=== PATIENT | female | born 1950 | race Caucasian/White ===

== ENCOUNTER 2016-12-04 13:17 | Outpatient (CLI) | payer MEDICARE | END 2016-12-04 13:18 | disposition home or self-care (01) | LOC: EEG 13:17 | PROVIDERS: ATTEND Student in an Organized Health Care Education/Training Program | DX: R42 Dizziness and giddiness (principal); R29.818 Other symptoms and signs involving the nervous system | CPT/HCPCS: 95816 ==

== ENCOUNTER 2017-01-03 16:38 | Inpatient (IN) | payer MEDICARE ==
[2017-01-03 18:50] LABS: Prothrombin Time 12.9 SEC (12.0-14.7)
--- NOTE | 2017-01-03 19:14 | CT ---
CT HEAD NONCONTRAST 01/03/17 INDICATION: Weakness. FINDINGS: There is a round hypodensity of the right centrum semiovale, anteriorly. No intracranial hemorrhage, mass effect or midline shift. There is subcortical white matter hypoattenuation of the right occipi bernardo lobe. Physiologic basal ganglia calcifications seen bilaterally. Prominent dural based calcifica tion is present intracranially. IMPRESSION: Age indeterminate round hypodensity anterior right centrum semiovale. Finding is superimposed upon a dditional smaller hypodensities of each centrum semiovale which are in the watershed distribution; t herefore, the possibility of recent infarctions related to hypoperfusion or embolic phenomenon not e xcluded. This could be further assessed with a noncontrast brain MRI. POS: L[facility]
[2017-01-03 19:15] LABS: #Basophils 0.1 thou/uL (0.0-0.2); #Eosinphils 0.2 thou/uL (0.0-0.7); #Lymphocytes 2.6 thou/uL (1.20-3.40); #Monocytes 0.6 thou/uL (0.11-0.59); #Neutrophils 5.2 thou/uL (1.40-6.50); %Basophils 1.1 % (0.0-1.0); %Eosinophils 2.1 % (0.0-10.0); %Lymphocytes 30.3 % (21.0-51.0); %Monocytes 6.7 % (0.0-10.0); Hematocrit 34.7 % (36.0-47.0); Mean Platelet Volume 7.7 fL (7.4-10.4); Red Blood Cell (RBC) Count 3.78 mill/uL (4.20-5.40); White Blood Cell (WBC) Count 8.6 thou/uL (4.8-10.8)
--- NOTE | 2017-01-03 19:16 | RAD ---
FRONTAL VIEW CHEST 01/03/17 INDICATION: Dyspnea. COMPARISON: 09/10/16. FINDINGS: No consolidation, effusion, pneumothorax. The cardiac silhouette is within normal limits of size. Th ere is absence of the lateral aspect of the right clavicle, chronic appearing. IMPRESSION: No focal consolidation. POS: [facility]
[2017-01-03 19:34] LABS: ALT (SGPT) 19 U/L (8-55); AST (SGOT) 18 U/L (5-34); Alkaline Phosphatase 111 U/L (40-150); Anion Gap 14 mmol/L (10-20); BUN (Urea Nitrogen) 21 mg/dL (9.8-20.1); Bilirubin, Total 0.6 mg/dL (0.2-1.2); Calc. Creatinine Clearance 0 mL/min (70-130); Calcium 10.4 mg/dL (7.8-10.44); Carbon Dioxide 28 mmol/L (23-31); Chloride 98 mmol/L (98-107); Estimated GFR-MDRD 49; Globulin 3.6 g/dL (2.4-3.5); Magnesium 1.7 mg/dL (1.6-2.6); Protein, Total 7.6 g/dL (6.0-8.3)
[2017-01-03 19:35] LABS: Troponin I 0.017 ng/mL (< 0.028)
[2017-01-03 20:27] LABS: Bilirubin Negative (Negative); Blood, Urine Small (Negative); Glucose, Urine (Dipstick) >=1000 mg/dL (Negative); Ketone, Urine 15 mg/dL (Negative); Nitrite Negative (Negative); Protein, Urine (Dipstick) 300 mg/dL (Neg-Trace); Urobilinogen 0.2 mg/dL (0.2-1.0)
[2017-01-03 20:33] LABS: Bacteria/HPF None Seen HPF (None Seen); Hyaline Casts/LPF 0-3 HYALINE CAST LPF (0-3 Hyaline); Squamous Epithelial 0-3 HPF (0-3); WBC/HPF 0-3 HPF (0-3)
[2017-01-03 22:44] VITALS: BMI 32.8
[2017-01-03] MEDS ORDERED: Acetaminophen 325 MG TAB PO PRN (23:33)
[2017-01-04] MEDS ORDERED: traMADol HCl 50 MG TAB PO PRN (01:27)
[2017-01-04] MEDS ORDERED: Insulin Regular 300 UNITS/3 ML VIAL SC PRN (06:26)
[2017-01-04] MEDS ORDERED: Dextrose 50% Abboject 50 ML SYRINGE IVP PRN (06:26)
[2017-01-04] MEDS ORDERED: Dextrose 5% in Water 1,000 ML IV PRN ×2 (06:26→08:57)
[2017-01-04] MEDS ORDERED: Sodium Chloride 0.9% 1,000 ML IV SCH (06:30)
[2017-01-04] MEDS ORDERED: Acetaminophen 325 MG TAB PO PRN (08:57)
[2017-01-04] MEDS ORDERED: Bisacodyl 5 MG TAB PO PRN (08:57)
[2017-01-04] MEDS ORDERED: Mag-Al 1200 mg/1200 mg/30 ML UDCUP PO PRN (08:57)
[2017-01-04] MEDS ORDERED: HYDROcodone/Acetaminophen 5/325 mg Tablet PO PRN (08:57)
[2017-01-04] MEDS ORDERED: Calcium Carbonate 500 MG ChewTAB PO PRN (08:57)
[2017-01-04] MEDS ORDERED: Dextrose 50% Abboject 50 ML SYRINGE SLOW IVP PRN (08:57)
[2017-01-04] MEDS ORDERED: Senokot 8.6 MG TAB PO PRN (08:57)
[2017-01-04] MEDS: Sodium Chloride 0.9% 1,000 ML IV SCH ×2 (09:51→22:48)
[2017-01-04] MEDS: Aspirin 325 mg Enteric Coated Tablet PO SCH (09:53)
[2017-01-04] MEDS: Famotidine 20 MG TAB PO SCH ×2 (09:53→21:09)
[2017-01-04] MEDS: Enoxaparin Sodium 40 MG/0.4 ML SYRINGE SC SCH (09:53)
[2017-01-04] MEDS: Insulin Detemir 100 UNITS/ML 25 UNITS in Pre-Filled Syringe 1 EACH SC SCH ×2 (10:07→21:15)
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
--- NOTE | 2017-01-04 11:38 | ULT ---
BILATERAL CAROTID DUPLEX ULTRASOUND WITH SPECTRAL ANALYSIS AND COLOR FLOW EVALUATION: DATE: 01/04/17. HISTORY: CVA. FINDINGS: Ceron scale, color flow, Doppler evaluation, and spectral analysis of the bilateral carotid arteries is performed with 2D imaging. There is minimal atherosclerotic calcification seen with the proximal left internal carotid artery. There is less than 50% maximal stenosis in the bilateral internal carotid arteries according to peak systolic velocities and the ICA/CCA ratios. Peak systolic velocity in the right ICA is 62.7 cm/s w ith an ICA/CCA ratio of 0.94. The peak systolic velocity in the left ICA is 55.7 cm/s with an ICA/C CA ratio of 0.77. Antegrade flow is demonstrated in the vertebral arteries bilaterally. IMPRESSION: No hemodynamically significant stenosis in the bilateral internal carotid arteries. POS: [facility]
[2017-01-04] MEDS: Insulin Regular 300 UNITS/3 ML VIAL SC PRN ×2 (12:58→17:03)
--- NOTE | 2017-01-04 13:30 | MRI ---
MRI OF BRAIN WITHOUT IV CONTRAST: DATE: . HISTORY: Weakness. COMPARISON: MRI brain on . Comparison is also made with CT brain on 01/03/17. There are scattered areas of punctate and patchy increased FLAIR and T2 weighted signal intensity in the periventricular and subcortical white matter which are nonspecific but likely reflective of chr onic small-vessel ischemic changes. The rounded area of decreased attenuation on the recent CT scan examination corresponds to a rounded area of increased FLAIR and T2 weighted signal intensity in th is region. There is no restricted diffusion to suggest an acute infarction. There is mild cerebral and cerebellar volume loss. The ventricular system is normal in size, shape, and position for the degree of sulcal atrophy. Appropriate flow voids are demonstrated at the base of the brain. [place] lenses are not seen. The paranasal sinuses and skull base have a normal MRI appearance. IMPRESSION: 1. No acute intracranial abnormalities demonstrated. 2. Findings likely attributable to chronic small-vessel ischemic changes which have progressed comp ared to the exam on 02/05/16. The rounded low-density area within the right frontal lobe centrum se miovale corresponds to signal abnormality on MRI brain which is, again, likely related to chronic sm all-vessel ischemic changes. POS: JAY
[2017-01-04] MEDS: traMADol HCl 50 MG TAB PO SCH ×2 (15:11→21:15)
[2017-01-04] MEDS: Gabapentin 100 MG CAP PO SCH ×2 (15:12→21:08)
[2017-01-04] MEDS: Ondansetron HCl/PF 4 MG/2 ML Vial IVP PRN (20:30)
[2017-01-04] MEDS ORDERED: Atorvastatin Calcium 20 MG TAB PO SCH (21:00)
[2017-01-04] MEDS: Atorvastatin Calcium 40 MG TAB PO SCH (21:09)
[2017-01-04] MEDS: rOPINIRole HCl 1 MG TAB PO SCH (21:09)
--- NOTE | 2017-01-04 21:30 | PRG ---
NEUROLOGIC FOLLOWUP NOTE DATE OF SERVICE: 01/04/2017 CONSULTING PHYSICIAN: Hospitalist Service. IMPRESSION: 1. Generalized weakness and deconditioning with recent falls. 2. Diabetes. 3. Hypertension. 4. Hyperlipidemia. 5. Obesity. PLAN: The patient may be a reasonable candidate for rehabilitation for reconditioning given her rec ent history of transient neurologic deficits. SUBJECTIVE: Ms. Oropeza is a patient of Dr. Sanders and Nelia who came in after having difficulty w alking and falling. She reports this has been going on for more than a week. She thought that her left leg had become acutely weak and she has been evaluated since admission with an MRI of the brain , which did not reveal any evidence of acute changes. She has some chronic white matter changes in the periventricular region extending to the subcortical areas in both hemispheres, which have progre ssed over the last year and a half. Her workup otherwise has been notable for elevated blood sugar and some hypertension. Her exam today is nonfocal. She has some mild generalized weakness. I do not see any acute neurologic event. At this point, she had had subjective symptoms of some tra nsient increased weakness on the left side suggesting a possible transient ischemic attack. Would c ontinue her antiplatelet and statin and see if she might be a candidate for rehabilitation.
[2017-01-05 04:51] LABS: Anion Gap 13 mmol/L (10-20); BUN (Urea Nitrogen) 20 mg/dL (9.8-20.1); Calc. Creatinine Clearance 98 mL/min (70-130); Calcium 8.7 mg/dL (7.8-10.44); Carbon Dioxide 23 mmol/L (23-31); Chloride 104 mmol/L (98-107); Estimated GFR-MDRD 66
[2017-01-05 05:22] LABS: #Basophils 0.1 thou/uL (0.0-0.2); #Eosinphils 0.5 thou/uL (0.0-0.7); #Monocytes 0.7 thou/uL (0.11-0.59); #Neutrophils 3.6 thou/uL (1.40-6.50); %Basophils 1.4 % (0.0-1.0); %Eosinophils 5.7 % (0.0-10.0); %Lymphocytes 38.4 % (21.0-51.0); %Monocytes 8.7 % (0.0-10.0); Hematocrit 33.4 % (36.0-47.0); Mean Platelet Volume 7.5 fL (7.4-10.4); Red Blood Cell (RBC) Count 3.61 mill/uL (4.20-5.40); White Blood Cell (WBC) Count 7.9 thou/uL (4.8-10.8)
[2017-01-05] MEDS: Levothyroxine Sodium 75 MCG TAB PO SCH (05:47)
[2017-01-05] MEDS: traMADol HCl 50 MG TAB PO SCH ×3 (05:47→21:08)
[2017-01-05] MEDS: Insulin Regular 300 UNITS/3 ML VIAL SC PRN ×2 (06:41→20:26)
[2017-01-05] MEDS ORDERED: Diazepam 2 MG TAB PO PRN (07:10)
[2017-01-05] MEDS: HumaLOG 300 UNITS/3 ML VIAL SC SCH ×3 (08:49→16:51)
[2017-01-05] MEDS: Famotidine 20 MG TAB PO SCH ×2 (08:50→20:23)
[2017-01-05] MEDS: Gabapentin 100 MG CAP PO SCH ×3 (08:50→20:23)
[2017-01-05] MEDS: Aspirin 325 mg Enteric Coated Tablet PO SCH (08:51)
[2017-01-05] MEDS: Insulin Detemir 100 UNITS/ML 25 UNITS in Pre-Filled Syringe 1 EACH SC SCH ×2 (08:51→20:24)
[2017-01-05] MEDS: hydrALAZINE 25 MG TAB PO SCH ×2 (08:51→20:23)
[2017-01-05] MEDS: Enoxaparin Sodium 40 MG/0.4 ML SYRINGE SC SCH (08:51)
[2017-01-05] MEDS: Ondansetron HCl/PF 4 MG/2 ML Vial IVP PRN (12:00)
--- NOTE | 2017-01-05 12:00 | PDOC.PN ---
- Subjective Encounter Start Date: 01/05/17 Encounter Start Time: 11:57 Subjective: feels better but still weak - Objective MAR Reviewed: Yes Vital Signs & Weight: Vital Signs (12 hours) Temp Pulse Resp BP Pulse Ox 01/05/17 11:52 98.1 F 70 16 135/73 97 01/05/17 07:51 98.0 F 63 20 96 01/05/17 07:40 98.0 F 63 20 192/90 H 96 01/05/17 04:49 97.7 F 63 20 188/82 H 97 01/05/17 00:36 97.6 F 71 20 172/81 H 95 Weight Admit Weight 209 lb 12.8 oz Weight 209 lb 12.8 oz I&O: 01/04/17 01/05/17 01/06/17 06:59 06:59 06:59 Intake Total 240 Balance 240 Result Diagrams: 01/05/17 05:05 01/05/17 03:50 Additional Labs: Accuchecks 01/05/17 01/05/17 01/05/17 10:56 08:07 05:28 POC Glucose 125 H 188 H 223 H 01/04/17 01/04/17 01/04/17 21:07 16:53 11:47 POC Glucose 275 H 339 H 346 H Microbiology 01/03/17 20:00 Urine voided Urine Culture - Preliminary NO GROWTH AT 12 HOURS Laboratory Tests 01/05/17 03:50 Triglycerides 204 H Cholesterol 229 H LDL Cholesterol, Calc 128 Radiology Reviewed by me: Yes (MRI- no CVA.) Phys Exam - Physical Examination Constitutional: NAD HEENT: PERRLA, moist MMs, sclera anicteric, oral pharynx no lesions Neck: no nodes, no JVD, supple, full ROM Respiratory: no wheezing, no rales, no rhonchi, clear to auscultation bilateral Cardiovascular: RRR, no significant murmur, no rub, gallop Gastrointestinal: soft, non-tender, no distention, positive bowel sounds Musculoskeletal: no edema, pulses present Neurological: non-focal, normal sensation, moves all 4 limbs Psychiatric: normal affect, A&O x 3 Skin: no rash Dx/Plan (1) TIA (transient ischemic attack) Status: Acute (2) CKD (chronic kidney disease), stage III Status: Chronic Comment: Stable, monitor half-way (3) Diabetes type 2, uncontrolled Code(s): E11.65 - TYPE 2 DIABETES MELLITUS WITH HYPERGLYCEMIA Status: Chronic (4) Hypertension Code(s): I10 - ESSENTIAL (PRIMARY) HYPERTENSION Status: Chronic Qualifiers: Hypertension type: essential hypertension Qualified Code(s): I10 - Essential (primary) hypertension Comment: Stable (5) Physical deconditioning Code(s): R53.81 - OTHER MALAISE Status: Acute (6) Hypothyroidism Code(s): E03.9 - HYPOTHYROIDISM, UNSPECIFIED Status: Chronic Comment: Continue Levothyroxine 75mcg po daily (7) Obesity (BMI 30-39.9) Code(s): E66.9 - OBESITY, UNSPECIFIED Status: Chronic (8) Acute kidney failure Status: Resolved - Plan DVT proph w/SCDs No new CVA according to MRI/neurology recs.cont ASA,statin.rehab eval. -: add fish oil for high TG. -: hemodynamically stable.DC IVF as Renal Fx improved. -: restart select home meds for HTN.cont to hold HCTZ. -: DC when rehab arranged * . Review of Systems - Review of Systems Constitutional: Weakness. negative: Fever, Chills, Sweats, Malaise, Other Respiratory: negative: Cough, Dry, Shortness of Breath, Hemoptysis, SOB with Excertion, Pleuritic Pain, Sputum, Wheezing Cardiovascular: negative: Chest Pain, Palpitations, Orthopnea, Paroxysmal Noc. Dyspnea, Edema, Light Headedness, Other Gastrointestinal: negative: Nausea, Vomiting, Abdominal Pain, Diarrhea, Constipation, Melena, Hematochezia, Other Genitourinary: negative: Dysuria, Frequency, Incontinence, Hematuria, Retention , Other Musculoskeletal: negative: Neck Pain, Shoulder Pain, Arm Pain, Back Pain, Hand Pain, Leg Pain, Foot Pain, Other Neurological: negative: Weakness, Numbness, Incoordination, Change in Speech, Confusion, Seizures, Other - Medications/Allergies Allergies/Adverse Reactions: Allergies Allergy/AdvReac Type Severity Reaction Status Date / Time ofloxacin Allergy Severe "THROAT Verified 01/03/17 22:46 SWELLING" dexamethasone Allergy Unknown Anaphylaxis Verified 01/03/17 22:46 Iodinated Contrast- Oral and Allergy Verified 01/03/17 22:47 IV Dye Medications: Current Medications Acetaminophen (Tylenol) 650 mg PO Q4H PRN PRN Reason: Headache/Fever or Pain Hydrocodone Bitart/Acetaminophen ([place] 5/325) 1 tab PO Q4H PRN PRN Reason: Moderate Pain (4-6) Last Admin: 01/04/17 13:38 Dose: 1 tab Al Hydroxide/Mg Hydroxide (Maalox) 30 ml PO Q6H PRN PRN Reason: Heartburn or Indigestion Aspirin (Ecotrin) 325 mg PO DAILY [facility] Last Admin: 01/05/17 08:51 Dose: 325 mg Atorvastatin Calcium (Lipitor) 40 mg PO HS [facility] Last Admin: 01/04/17 21:09 Dose: 40 mg Bisacodyl (Dulcolax) 10 mg PO DAILYPRN PRN PRN Reason: Constipation Calcium Carbonate (Tums) 1,000 mg PO Q4H PRN PRN Reason: Heartburn or Indigestion Dextrose/Water (Dextrose 50%) 25 gm SLOW IVP PRN PRN PRN Reason: Hypoglycemia Diazepam (Valium) 2 mg PO BID PRN PRN Reason: Anxiety Enoxaparin Sodium (Lovenox) 40 mg SC 0900 [facility] Last Admin: 01/05/17 08:51 Dose: 40 mg Famotidine (Pepcid) 20 mg PO BID [facility] Last Admin: 01/05/17 08:50 Dose: 20 mg Fish Oil (Fish Oil) 1,000 mg PO DAILY [facility] Gabapentin (Neurontin) 100 mg PO TID [facility] Last Admin: 01/05/17 08:50 Dose: 100 mg Glucagon (Glucagon) 1 mg IM PRN PRN PRN Reason: Hypoglycemia Hydralazine HCl (Apresoline) 25 mg PO BID [facility] Last Admin: 01/05/17 08:51 Dose: 25 mg Dextrose/Water (D5w) 1,000 mls @ 0 mls/hr IV .Q0M PRN; As Directed PRN Reason: Hypoglycemia Insulin Detemir 25 units/ (Miscellaneous Medication) 0.25 mls @ 0 mls/hr SC BID [facility] Last Admin: 01/05/17 08:51 Dose: 0.25 mls Insulin Human Lispro (Humalog) 100 units SC TID-[facility] Last Admin: 01/05/17 08:49 Dose: 2 unit Insulin Human Regular (Humulin R) 0 units SC .MODERATE SLIDING SC PRN PRN Reason: Moderate Correctional Scale Last Admin: 01/05/17 06:41 Dose: 4 unit Insulin Human Regular (Humulin R) 0 units SC .BEDTIME SLIDING SC PRN PRN Reason: Bedtime Correctional Scale Levothyroxine Sodium (Synthroid) 75 mcg PO 0600 [facility] Last Admin: 01/05/17 05:47 Dose: 75 mcg Metoprolol Succinate (Toprol Xl) 25 mg PO BID [facility] Last Admin: 01/05/17 08:50 Dose: 25 mg Ondansetron HCl (Zofran) 4 mg IVP Q6H PRN PRN Reason: Nausea/Vomiting Last Admin: 01/04/17 20:30 Dose: 4 mg Pantoprazole Sodium (Protonix) 40 mg PO BID [facility] Last Admin: 01/05/17 08:51 Dose: 40 mg Ranolazine (Ranexa) 500 mg PO BID [facility] Last Admin: 01/05/17 08:50 Dose: 500 mg Ropinirole HCl (Requip) 1 mg PO QPM [facility] Last Admin: 01/04/17 21:09 Dose: 1 mg Senna (Senokot) 2 tab PO HSPRN PRN PRN Reason: Constipation Sertraline HCl (Zoloft) 200 mg PO QAM [facility] Last Admin: 01/05/17 08:50 Dose: 200 mg Sodium Chloride (Flush - Normal Saline) 10 ml IVF Q12HR [facility] Last Admin: 01/05/17 08:52 Dose: 10 ml Sodium Chloride (Flush - Normal Saline) 10 ml IVF PRN PRN PRN Reason: Saline Flush Tramadol HCl (Ultram) 50 mg PO Q8H PRN PRN Reason: Moderate Pain (4-6) Last Admin: 01/04/17 01:51 Dose: 50 mg Tramadol HCl (Ultram) 50 mg PO Q8HR [facility] Last Admin: 01/05/17 05:47 Dose: 50 mg
[2017-01-05] MEDS: Atorvastatin Calcium 40 MG TAB PO SCH (20:23)
[2017-01-05] MEDS: rOPINIRole HCl 1 MG TAB PO SCH (20:23)
[2017-01-05] MEDS: prednisoLONE 1% Ophth Susp 5 ml Bottle EA EYE SCH (20:25)
[2017-01-06] MEDS: traMADol HCl 50 MG TAB PO SCH ×3 (06:26→21:20)
[2017-01-06] MEDS: Levothyroxine Sodium 75 MCG TAB PO SCH (06:27)
--- NOTE | 2017-01-06 09:30 | PDOC.PN ---
- Subjective Encounter Start Date: 01/06/17 Encounter Start Time: 09:30 Subjective: feels well. no new complaints. -: c/o difficulty w speech persists - Objective MAR Reviewed: Yes Vital Signs & Weight: Vital Signs (12 hours) Temp Pulse Resp BP Pulse Ox 01/06/17 07:30 97.6 F 62 18 187/91 H 95 01/06/17 04:14 97.9 F 61 18 134/99 H 96 01/05/17 23:46 98.5 F 62 16 163/82 H 96 Weight Admit Weight 209 lb 12.8 oz Weight 209 lb 12.8 oz I&O: 01/05/17 01/06/17 01/07/17 06:59 06:59 06:59 Intake Total 880 Balance 880 Result Diagrams: 01/05/17 05:05 01/05/17 03:50 Additional Labs: Accuchecks 01/06/17 01/05/17 01/05/17 06:26 20:21 16:41 POC Glucose 95 302 H 177 H 01/05/17 10:56 POC Glucose 125 H Microbiology 01/03/17 20:00 Urine voided Urine Culture - Final Beta-hemolytic Streptococcus Yeast species Phys Exam - Physical Examination Constitutional: NAD HEENT: PERRLA, moist MMs, sclera anicteric, oral pharynx no lesions Neck: no nodes, no JVD, supple, full ROM Respiratory: no wheezing, no rales, no rhonchi, clear to auscultation bilateral Cardiovascular: RRR, no significant murmur Gastrointestinal: soft, non-tender, no distention, positive bowel sounds Musculoskeletal: no edema, pulses present Neurological: non-focal, normal sensation, moves all 4 limbs Psychiatric: normal affect, A&O x 3 Skin: no rash Dx/Plan (1) TIA (transient ischemic attack) Status: Acute (2) CKD (chronic kidney disease), stage III Status: Chronic Comment: Stable, monitor group home (3) Diabetes type 2, uncontrolled Code(s): E11.65 - TYPE 2 DIABETES MELLITUS WITH HYPERGLYCEMIA Status: Chronic (4) Hypertension Code(s): I10 - ESSENTIAL (PRIMARY) HYPERTENSION Status: Chronic Qualifiers: Hypertension type: essential hypertension Qualified Code(s): I10 - Essential (primary) hypertension Comment: Stable (5) Physical deconditioning Code(s): R53.81 - OTHER MALAISE Status: Acute (6) Hypothyroidism Code(s): E03.9 - HYPOTHYROIDISM, UNSPECIFIED Status: Chronic Comment: Continue Levothyroxine 75mcg po daily (7) Obesity (BMI 30-39.9) Code(s): E66.9 - OBESITY, UNSPECIFIED Status: Chronic (8) Acute kidney failure Status: Resolved - Plan PT/OT, out of bed/ambulate, DVT proph w/SCDs rehab eval. hemodynamically stable. -: will add speech eval.cont ASA,statin. -: DC when accepted to rehab. -: michael TIA * . Review of Systems - Review of Systems Constitutional: negative: Fever, Chills, Sweats, Weakness, Malaise, Other Respiratory: negative: Cough, Dry, Shortness of Breath, Hemoptysis, SOB with Excertion, Pleuritic Pain, Sputum, Wheezing Cardiovascular: negative: Chest Pain, Palpitations, Orthopnea, Paroxysmal Noc. Dyspnea, Edema, Light Headedness, Other Gastrointestinal: negative: Nausea, Vomiting, Abdominal Pain, Diarrhea, Constipation, Melena, Hematochezia, Other Genitourinary: negative: Dysuria, Frequency, Incontinence, Hematuria, Retention , Other Musculoskeletal: negative: Neck Pain, Shoulder Pain, Arm Pain, Back Pain, Hand Pain, Leg Pain, Foot Pain, Other Neurological: negative: Weakness, Numbness, Incoordination, Change in Speech, Confusion, Seizures, Other - Medications/Allergies Allergies/Adverse Reactions: Allergies Allergy/AdvReac Type Severity Reaction Status Date / Time ofloxacin Allergy Severe "THROAT Verified 01/03/17 22:46 SWELLING" dexamethasone Allergy Unknown Anaphylaxis Verified 01/03/17 22:46 Iodinated Contrast- Oral and Allergy Verified 01/03/17 22:47 IV Dye Medications: Current Medications Acetaminophen (Tylenol) 650 mg PO Q4H PRN PRN Reason: Headache/Fever or Pain Hydrocodone Bitart/Acetaminophen ([place] 5/325) 1 tab PO Q4H PRN PRN Reason: Moderate Pain (4-6) Last Admin: 01/04/17 13:38 Dose: 1 tab Al Hydroxide/Mg Hydroxide (Maalox) 30 ml PO Q6H PRN PRN Reason: Heartburn or Indigestion Aspirin (Ecotrin) 325 mg PO DAILY [facility] Last Admin: 01/05/17 08:51 Dose: 325 mg Atorvastatin Calcium (Lipitor) 40 mg PO HS [facility] Last Admin: 01/05/17 20:23 Dose: 40 mg Bisacodyl (Dulcolax) 10 mg PO DAILYPRN PRN PRN Reason: Constipation Calcium Carbonate (Tums) 1,000 mg PO Q4H PRN PRN Reason: Heartburn or Indigestion Dextrose/Water (Dextrose 50%) 25 gm SLOW IVP PRN PRN PRN Reason: Hypoglycemia Diazepam (Valium) 2 mg PO BID PRN PRN Reason: Anxiety Enoxaparin Sodium (Lovenox) 40 mg SC 0900 [facility] Last Admin: 01/05/17 08:51 Dose: 40 mg Famotidine (Pepcid) 20 mg PO BID [facility] Last Admin: 01/05/17 20:23 Dose: 20 mg Fish Oil (Fish Oil) 1,000 mg PO DAILY [facility] Gabapentin (Neurontin) 100 mg PO TID [facility] Last Admin: 01/05/17 20:23 Dose: 100 mg Glucagon (Glucagon) 1 mg IM PRN PRN PRN Reason: Hypoglycemia Hydralazine HCl (Apresoline) 25 mg PO BID [facility] Last Admin: 01/05/17 20:23 Dose: 25 mg Dextrose/Water (D5w) 1,000 mls @ 0 mls/hr IV .Q0M PRN; As Directed PRN Reason: Hypoglycemia Insulin Detemir 25 units/ (Miscellaneous Medication) 0.25 mls @ 0 mls/hr SC BID [facility] Last Admin: 01/05/17 20:24 Dose: 0.25 mls Insulin Human Regular (Humulin R) 0 units SC .MODERATE SLIDING SC PRN PRN Reason: Moderate Correctional Scale Last Admin: 01/05/17 06:41 Dose: 4 unit Insulin Human Regular (Humulin R) 0 units SC .BEDTIME SLIDING SC PRN PRN Reason: Bedtime Correctional Scale Last Admin: 01/05/17 20:26 Dose: 4 unit Levothyroxine Sodium (Synthroid) 75 mcg PO 0600 [facility] Last Admin: 01/06/17 06:27 Dose: 75 mcg Metoprolol Succinate (Toprol Xl) 25 mg PO BID [facility] Last Admin: 01/05/17 20:23 Dose: 25 mg Ondansetron HCl (Zofran) 4 mg IVP Q6H PRN PRN Reason: Nausea/Vomiting Last Admin: 01/05/17 12:00 Dose: 4 mg Pantoprazole Sodium (Protonix) 40 mg PO BID [facility] Last Admin: 01/05/17 20:23 Dose: 40 mg Prednisolone Acetate (Econopred Plus 1% Opth Susp) 1 drop EA EYE QID [facility] Last Admin: 01/05/17 20:25 Dose: 1 drop Ranolazine (Ranexa) 500 mg PO BID [facility] Last Admin: 01/05/17 20:22 Dose: 500 mg Ropinirole HCl (Requip) 1 mg PO QPM [facility] Last Admin: 01/05/17 20:23 Dose: 1 mg Senna (Senokot) 2 tab PO HSPRN PRN PRN Reason: Constipation Sertraline HCl (Zoloft) 200 mg PO QAM [facility] Last Admin: 01/05/17 08:50 Dose: 200 mg Sodium Chloride (Flush - Normal Saline) 10 ml IVF Q12HR [facility] Last Admin: 01/05/17 21:09 Dose: 10 ml Sodium Chloride (Flush - Normal Saline) 10 ml IVF PRN PRN PRN Reason: Saline Flush Tramadol HCl (Ultram) 50 mg PO Q8H PRN PRN Reason: Moderate Pain (4-6) Last Admin: 01/04/17 01:51 Dose: 50 mg Tramadol HCl (Ultram) 50 mg PO Q8HR [facility] Last Admin: 01/06/17 06:26 Dose: 50 mg
[2017-01-06] MEDS: Ondansetron HCl/PF 4 MG/2 ML Vial IVP PRN (10:24)
[2017-01-06] MEDS: Enoxaparin Sodium 40 MG/0.4 ML SYRINGE SC SCH (10:33)
[2017-01-06] MEDS: Aspirin 325 mg Enteric Coated Tablet PO SCH (10:33)
[2017-01-06] MEDS: Famotidine 20 MG TAB PO SCH ×2 (10:34→21:22)
[2017-01-06] MEDS: hydrALAZINE 25 MG TAB PO SCH ×2 (10:35→21:21)
[2017-01-06] MEDS: Gabapentin 100 MG CAP PO SCH ×3 (10:35→21:21)
[2017-01-06] MEDS: Fish Oil 1,000 MG CAP PO SCH (10:35)
[2017-01-06] MEDS: prednisoLONE 1% Ophth Susp 5 ml Bottle EA EYE SCH ×4 (10:36→21:22)
[2017-01-06] MEDS: HumaLOG 300 UNITS/3 ML VIAL SC SCH (11:12)
[2017-01-06] MEDS: Insulin Detemir 100 UNITS/ML 25 UNITS in Pre-Filled Syringe 1 EACH SC SCH ×2 (12:48→21:23)
[2017-01-06] MEDS: rOPINIRole HCl 1 MG TAB PO SCH (21:21)
[2017-01-06] MEDS: Atorvastatin Calcium 40 MG TAB PO SCH (21:22)
[2017-01-06] MEDS: Insulin Regular 300 UNITS/3 ML VIAL SC PRN (21:24)
[2017-01-07] MEDS: traMADol HCl 50 MG TAB PO SCH ×2 (06:16→14:45)
[2017-01-07] MEDS: Levothyroxine Sodium 75 MCG TAB PO SCH (06:17)
--- NOTE | 2017-01-07 08:16 | PDOC.PN ---
- Subjective Encounter Start Date: 01/07/17 Encounter Start Time: 08:15 Subjective: feels good. working w speech therapist as well Ot and PT -: no new complaints. - Objective MAR Reviewed: Yes Vital Signs & Weight: Vital Signs (12 hours) Temp Pulse Resp BP Pulse Ox 01/07/17 05:05 96 01/07/17 04:11 97.5 F L 55 L 16 136/66 96 01/07/17 00:08 97.4 F L 54 L 18 163/77 H 97 01/06/17 21:21 61 Weight Admit Weight 209 lb 12.8 oz Weight 231 lb 14.4 oz I&O: 01/06/17 01/07/17 01/08/17 06:59 06:59 06:59 Intake Total 880 695 Balance 880 695 Result Diagrams: 01/05/17 05:05 01/05/17 03:50 Additional Labs: Accuchecks 01/06/17 01/06/17 01/06/17 20:25 16:59 10:39 POC Glucose 233 H 237 H 118 H Microbiology 01/03/17 20:00 Urine voided Urine Culture - Final Beta-hemolytic Streptococcus Yeast species Phys Exam - Physical Examination Constitutional: NAD sitting up and eating breakfast HEENT: PERRLA, moist MMs, sclera anicteric, oral pharynx no lesions Neck: no nodes, no JVD, supple, full ROM Respiratory: no wheezing, no rales, no rhonchi, clear to auscultation bilateral Cardiovascular: RRR, no significant murmur, no rub, gallop Gastrointestinal: soft, non-tender, no distention, positive bowel sounds Musculoskeletal: no edema, pulses present Neurological: non-focal, normal sensation, moves all 4 limbs mild slow speech but no difficulty finding correct words Psychiatric: normal affect, A&O x 3 Skin: no rash Dx/Plan (1) TIA (transient ischemic attack) Status: Acute (2) CKD (chronic kidney disease), stage III Status: Chronic Comment: Stable, monitor alf (3) Diabetes type 2, uncontrolled Code(s): E11.65 - TYPE 2 DIABETES MELLITUS WITH HYPERGLYCEMIA Status: Chronic (4) Hypertension Code(s): I10 - ESSENTIAL (PRIMARY) HYPERTENSION Status: Chronic Qualifiers: Hypertension type: essential hypertension Qualified Code(s): I10 - Essential (primary) hypertension Comment: Stable (5) Physical deconditioning Code(s): R53.81 - OTHER MALAISE Status: Acute (6) Hypothyroidism Code(s): E03.9 - HYPOTHYROIDISM, UNSPECIFIED Status: Chronic Comment: Continue Levothyroxine 75mcg po daily (7) Obesity (BMI 30-39.9) Code(s): E66.9 - OBESITY, UNSPECIFIED Status: Chronic (8) Acute kidney failure Status: Resolved - Plan DVT proph w/SCDs cont ASA,statin and home meds as below. -: hemodynamically stable. -: Ok to Dc to rehab /[facility] when accpeted. -: diet per [employer] recs * . Review of Systems - Medications/Allergies Allergies/Adverse Reactions: Allergies Allergy/AdvReac Type Severity Reaction Status Date / Time ofloxacin Allergy Severe "THROAT Verified 01/03/17 22:46 SWELLING" dexamethasone Allergy Unknown Anaphylaxis Verified 01/03/17 22:46 Iodinated Contrast- Oral and Allergy Verified 01/03/17 22:47 IV Dye Medications: Current Medications Acetaminophen (Tylenol) 650 mg PO Q4H PRN PRN Reason: Headache/Fever or Pain Hydrocodone Bitart/Acetaminophen ([place] 5/325) 1 tab PO Q4H PRN PRN Reason: Moderate Pain (4-6) Last Admin: 01/04/17 13:38 Dose: 1 tab Al Hydroxide/Mg Hydroxide (Maalox) 30 ml PO Q6H PRN PRN Reason: Heartburn or Indigestion Aspirin (Ecotrin) 325 mg PO DAILY [facility] Last Admin: 01/06/17 10:33 Dose: 325 mg Atorvastatin Calcium (Lipitor) 40 mg PO HS [facility] Last Admin: 01/06/17 21:22 Dose: 40 mg Bisacodyl (Dulcolax) 10 mg PO DAILYPRN PRN PRN Reason: Constipation Calcium Carbonate (Tums) 1,000 mg PO Q4H PRN PRN Reason: Heartburn or Indigestion Dextrose/Water (Dextrose 50%) 25 gm SLOW IVP PRN PRN PRN Reason: Hypoglycemia Diazepam (Valium) 2 mg PO BID PRN PRN Reason: Anxiety Enoxaparin Sodium (Lovenox) 40 mg SC 0900 [facility] Last Admin: 01/06/17 10:33 Dose: 40 mg Famotidine (Pepcid) 20 mg PO BID [facility] Last Admin: 01/06/17 21:22 Dose: 20 mg Fish Oil (Fish Oil) 1,000 mg PO DAILY [facility] Last Admin: 01/06/17 10:35 Dose: 1,000 mg Gabapentin (Neurontin) 100 mg PO TID [facility] Last Admin: 01/06/17 21:21 Dose: 100 mg Glucagon (Glucagon) 1 mg IM PRN PRN PRN Reason: Hypoglycemia Hydralazine HCl (Apresoline) 25 mg PO BID [facility] Last Admin: 01/06/17 21:21 Dose: 25 mg Dextrose/Water (D5w) 1,000 mls @ 0 mls/hr IV .Q0M PRN; As Directed PRN Reason: Hypoglycemia Insulin Detemir 25 units/ (Miscellaneous Medication) 0.25 mls @ 0 mls/hr SC BID [facility] Last Admin: 01/06/17 21:23 Dose: 0.25 mls Insulin Human Regular (Humulin R) 0 units SC .MODERATE SLIDING SC PRN PRN Reason: Moderate Correctional Scale Last Admin: 01/05/17 06:41 Dose: 4 unit Insulin Human Regular (Humulin R) 0 units SC .BEDTIME SLIDING SC PRN PRN Reason: Bedtime Correctional Scale Last Admin: 01/06/17 21:24 Dose: 2 unit Levothyroxine Sodium (Synthroid) 75 mcg PO 0600 [facility] Last Admin: 01/07/17 06:17 Dose: 75 mcg Metoprolol Succinate (Toprol Xl) 25 mg PO BID [facility] Last Admin: 01/06/17 21:40 Dose: 25 mg Ondansetron HCl (Zofran) 4 mg IVP Q6H PRN PRN Reason: Nausea/Vomiting Last Admin: 01/06/17 10:24 Dose: 4 mg Pantoprazole Sodium (Protonix) 40 mg PO BID [facility] Last Admin: 01/06/17 21:22 Dose: 40 mg Prednisolone Acetate (Econopred Plus 1% Opth Susp) 1 drop EA EYE QID [facility] Last Admin: 01/06/17 21:22 Dose: 1 drop Ranolazine (Ranexa) 500 mg PO BID [facility] Last Admin: 01/06/17 21:21 Dose: 500 mg Ropinirole HCl (Requip) 1 mg PO QPM [facility] Last Admin: 01/06/17 21:21 Dose: 1 mg Senna (Senokot) 2 tab PO HSPRN PRN PRN Reason: Constipation Sertraline HCl (Zoloft) 200 mg PO QAM [facility] Last Admin: 01/06/17 10:36 Dose: 200 mg Sodium Chloride (Flush - Normal Saline) 10 ml IVF Q12HR [facility] Last Admin: 01/06/17 21:28 Dose: 10 ml Sodium Chloride (Flush - Normal Saline) 10 ml IVF PRN PRN PRN Reason: Saline Flush Tramadol HCl (Ultram) 50 mg PO Q8H PRN PRN Reason: Moderate Pain (4-6) Last Admin: 01/04/17 01:51 Dose: 50 mg Tramadol HCl (Ultram) 50 mg PO Q8HR [facility] Last Admin: 01/07/17 06:16 Dose: 50 mg
[2017-01-07 08:24] VITALS: TEMP 98.1
[2017-01-07] MEDS: Insulin Detemir 100 UNITS/ML 25 UNITS in Pre-Filled Syringe 1 EACH SC SCH (08:28)
[2017-01-07] MEDS: Fish Oil 1,000 MG CAP PO SCH (08:29)
[2017-01-07] MEDS: hydrALAZINE 25 MG TAB PO SCH (08:29)
[2017-01-07] MEDS: Famotidine 20 MG TAB PO SCH (08:29)
[2017-01-07] MEDS: Aspirin 325 mg Enteric Coated Tablet PO SCH (08:30)
[2017-01-07] MEDS: Gabapentin 100 MG CAP PO SCH ×2 (08:30→14:46)
[2017-01-07] MEDS: Enoxaparin Sodium 40 MG/0.4 ML SYRINGE SC SCH (08:35)
[2017-01-07] MEDS: prednisoLONE 1% Ophth Susp 5 ml Bottle EA EYE SCH ×2 (08:35→14:46)
[2017-01-07 15:55] VITALS: BP 145/68
--- NOTE | 2017-01-08 01:32 | DIS ---
DATE OF ADMISSION: 01/04/2017 DATE OF DISCHARGE: 01/07/2017 CONDITION AT THE TIME OF DISCHARGE: Stable and improved. DISCHARGE DIAGNOSIS: [facility] swing bed for rehabilitation. PRIMARY CARE PHYSICIAN: Hero Hurtado M.D. DISCHARGE MEDICATIONS: Include: 1. Prednisone eyedrops. 2. Valium 2 mg p.o. b.i.d. p.r.n. 3. Protonix 40 mg p.o. b.i.d. 4. Levemir 25 units subcutaneous b.i.d. 5. Tramadol as needed 50 mg every 8 hours. 6. Requip 1 mg p.o. at bedtime. 7. Hydralazine 25 mg p.o. b.i.d. 8. Sertraline 200 mg in the morning. 9. Ranexa 500 mg p.o. b.i.d. 10. Toprol-XL 25 mg p.o. b.i.d. 11. Synthroid 75 mcg daily. 12. Gabapentin 100 mg p.o. t.i.d. 13. Lipitor 40 mg daily. 14. Aspirin 325 mg daily. 15. Fish oil 1000 mg daily. 16. Calcium carbonate as needed. 17. Dulcolax as needed. 18. Maalox as needed. 19. Tylenol as needed. PROCEDURES DONE IN THE HOSPITAL: Include: 1. CT scan of the brain upon admission, which showed age indeterminate hypodensity in the right ant erior centrum or semiovale. 2. MRI of the brain, which once again showed the same findings, but they were attributed to chronic small vessel ischemic changes. 3. Carotid Doppler ultrasound, which did not show any hemodynamically significant stenosis. 4. Transthoracic echocardiogram which showed preserved ejection fraction of 55%-60% without any sig nificant valvular issues. CONSULTATIONS: Include Neurology, Dr. Ryan Mesa. ADMISSION HISTORY: Ms. Oropeza is a very pleasant 66-year-old female with past medical history of d iabetes, hypertension, dyslipidemia, CVA and coronary artery disease, who presented to the emergency room for complaints of fall repeatedly in the last week or so prior to admission as well as left lo wer extremity weakness. Upon presentation, she had a CT scan done in the emergency room, which was somewhat concerning about age indeterminate infarction and she was admitted as a CVA/TIA workup. e was otherwise hemodynamically stable. She was started on full dose aspirin and Lipitor. Please s ee admission history and physical for further details. HOSPITAL COURSE: The patient was admitted on the stroke floor and underwent stroke team workup incl uding MRI of the brain, carotid Doppler and echocardiogram. All of these workup were unremarkable. MRI was reviewed by neurologist, Dr. Mesa and it seemed like the findings on the CT scan and the MRI are just progression of her chronic small vessel ischemic changes rather than a new CVA. Howev er, TIA cannot be ruled out. For this reason, she was continued on full dose aspirin and Lipitor an d started on fish oil as well given her high triglyceride levels. Neurology quickly cleared her for discharge to rehab and this was arranged with the help of the corrections caseworker today. She will have occupational therapy, physical therapy and speech therapy over at the rehab. On the day of discharge, she was able to eat by herself and has no problems with her speech or muscle strength. She is actually doing very well in terms of her rehabilitation potential. She was seen and examined prior to discharge and discharge plan was discussed with the patient, who is in agreement and is eager to go to the rehab. Please see hospitalist progress note from today's date for further detail including [id number] interaction. Medications were reconciled. Total isatu e spent in the discharge of this patient is 32 minutes.
--- NOTE | 2017-02-23 10:40 | EKG ---
Test Reason : Blood Pressure : / mmHG Vent. Rate : 071 BPM Atrial Rate : 071 BPM P-R Int : 134 ms QRS Dur : 086 ms QT Int : 418 ms P-R-T Axes : 024 -34 020 degrees QTc Int : 454 ms Normal sinus rhythm Left axis deviation T wave abnormality, consider anterior ischemia Abnormal ECG Confirmed by YESENIA SPRAGUE M.D. ([id number]), editor in chief CECILIA DUNCAN ([id number] on 02/23/2017 10:39:52 AM Referred By: Confirmed By:YESENIA SPRAGUE M.D.
== END 2017-01-07 17:31 | disposition swing bed (61) | DRG 69 ==
LOC: ERS 16:38 → 2SE 19:44
PROVIDERS: ADMIT Internal Medicine; ATTEND Internal Medicine
DX: G45.9 Transient cerebral ischemic attack, unspecified (principal); N17.9 Acute kidney failure, unspecified; E11.22 Type 2 diabetes mellitus with diabetic chronic kidney disease; N18.3 Chronic kidney disease, stage 3 (moderate); E03.9 Hypothyroidism, unspecified; E66.9 Obesity, unspecified; Z68.30 Body mass index [BMI] 30.0-30.9, adult; I12.9 Hypertensive chronic kidney disease with stage 1 through stage 4 chronic kidney disease, or unspecified chronic kidney disease; Z79.4 Long term (current) use of insulin; K21.9 Gastro-esophageal reflux disease without esophagitis; G25.81 Restless legs syndrome; Z95.5 Presence of coronary angioplasty implant and graft; M19.90 Unspecified osteoarthritis, unspecified site; E78.5 Hyperlipidemia, unspecified; Z86.73 Personal history of transient ischemic attack (TIA), and cerebral infarction without residual deficits; Z79.84 Long term (current) use of oral hypoglycemic drugs
CPT/HCPCS: 36415; 36416; 70450; 70551; 71010; 80048; 80053; 80061; 81003; 81015; 82553; 83605; 83735; 84484; 85025; 85610; 87086; 93005; 93306; 93880; A4216; G8978-GP-CL; G8979-GP-CK; G8987-GO-CJ; G8988-GO-CI; G8996-GN-CJ; G8997-GN-CH; J1650; J1815; J2405

== ENCOUNTER 2017-11-04 06:38 | Inpatient (IN) | payer MEDICARE ==
[2017-11-04 08:03] LABS: #Basophils 0.1 thou/uL (0.0-0.2); #Eosinphils 0.1 thou/uL (0.0-0.7); #Lymphocytes 1.9 thou/uL (1.20-3.40); #Monocytes 0.6 thou/uL (0.11-0.59); #Neutrophils 5.1 thou/uL (1.40-6.50); %Basophils 0.9 % (0.0-1.0); %Eosinophils 1.8 % (0.0-10.0); %Lymphocytes 24.2 % (21.0-51.0); %Monocytes 7.3 % (0.0-10.0); %Neutrophils 65.8 % (42.0-75.0); Hemoglobin 10.5 g/dL (12.0-16.0); Mean Corpuscular HGB CONC 33.7 g/dL (32.0-36.0); Mean Corpuscular Hemoglobin 30.8 pg (27.0-31.0); Mean Corpuscular Volume 91.2 fL (78.0-98.0); Platelet Count 168 thou/uL (130-400); RBC Distribution Width 12.3 % (11.5-14.5); Red Blood Cell (RBC) Count 3.41 mill/uL (4.20-5.40); White Blood Cell (WBC) Count 7.8 thou/uL (4.8-10.8)
[2017-11-04 08:11] LABS: ALT (SGPT) 12 U/L (8-55); AST (SGOT) 18 U/L (5-34); Albumin 3.4 g/dL (3.4-4.8); Alkaline Phosphatase 81 U/L (40-150); Anion Gap 14 mmol/L (10-20); BUN (Urea Nitrogen) 13 mg/dL (9.8-20.1); Bilirubin, Total 0.5 mg/dL (0.2-1.2); Calc. Creatinine Clearance 0 mL/min (70-130); Calcium 8.9 mg/dL (7.8-10.44); Carbon Dioxide 23 mmol/L (23-31); Chloride 100 mmol/L (98-107); Estimated GFR-MDRD 35; Globulin 3.2 g/dL (2.4-3.5); Glucose 382 mg/dL (80-115); Potassium 4.1 mmol/L (3.5-5.1); Protein, Total 6.6 g/dL (6.0-8.3); Sodium 133 mmol/L (136-145)
[2017-11-04] MEDS ORDERED: Furosemide 40 MG TAB PO SCH (08:30)
[2017-11-04] MEDS ORDERED: Levothyroxine Sodium 75 MCG TAB PO SCH (08:30)
[2017-11-04] MEDS ORDERED: hydrALAZINE 25 MG TAB PO SCH (08:30)
[2017-11-04] MEDS ORDERED: Atorvastatin Calcium 40 MG TAB PO SCH (08:30)
[2017-11-04] MEDS ORDERED: Gabapentin 100 MG CAP PO SCH (08:30)
[2017-11-04 08:33] LABS: CKMB 4.5 ng/mL (0-6.6); Troponin I 0.013 ng/mL (< 0.028)
[2017-11-04] MEDS ORDERED: Furosemide 40 MG TAB ONE (09:29)
[2017-11-04] MEDS ORDERED: hydrALAZINE 25 MG TAB ONE (09:29)
[2017-11-04 10:00] LABS: Bilirubin Negative (Negative); Blood, Urine Trace (Negative); Clarity CLEAR (Clear); Glucose, Urine (Dipstick) >=1000 mg/dL (Negative); Leukocyte Small (Negative); Nitrite Negative (Negative); Protein, Urine (Dipstick) 300 mg/dL (Neg-Trace); Specific Gravity, Urine 1.023 (1.002-1.036); Urobilinogen 0.2 mg/dL (0.2-1.0); pH, Urine 5.5 (5.0-9.0)
[2017-11-04 10:04] LABS: Bacteria/HPF None Seen HPF (None Seen); Hyaline Casts/LPF 7-10 HYALINE CAST LPF (0-3 Hyaline); Pathc Cast-AUWi Flag 0.87 (0-2.49); Squamous Epithelial 0-3 HPF (0-3)
[2017-11-04] MEDS ORDERED: Bisacodyl 5 MG TAB PO PRN (11:29)
[2017-11-04] MEDS ORDERED: Acetaminophen 325 MG TAB PO PRN (11:29)
[2017-11-04] MEDS ORDERED: Acetaminophen 650 MG Suppository PR PRN (11:29)
[2017-11-04] MEDS ORDERED: Dextrose 5% in Water 1,000 ML IV PRN (11:32)
[2017-11-04] MEDS ORDERED: Dextrose 50% Abboject 50 ML SYRINGE SLOW IVP PRN (11:32)
[2017-11-04 12:14] LABS: Troponin I 0.011 ng/mL (< 0.028)
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
[2017-11-04] MEDS ORDERED: cefTRIAXone\\ROCEPHIN 2 GM VIAL ONE (14:12)
[2017-11-04 15:11] LABS: Troponin I 0.012 ng/mL (< 0.028)
[2017-11-04 17:37] VITALS: BMI 33.9
[2017-11-04] MEDS: Sodium Chloride 0.9% 1,000 ML IV SCH (19:11)
[2017-11-04] MEDS ORDERED: Insulin Glargine 25 UNITS in Pre-Filled Syringe 1 EACH SC SCH (22:00)
[2017-11-04] MEDS: HumaLOG 300 UNITS/3 ML VIAL SC PRN (22:04)
[2017-11-05] MEDS ORDERED: cloNIDine 0.1 MG TAB PO SCH (00:45)
[2017-11-05] MEDS: hydrALAZINE 20 MG/ML VIAL SLOW IVP PRN (01:22)
[2017-11-05] MEDS: Ondansetron HCl/PF 4 MG/2 ML Vial SLOW IVP PRN (01:25)
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
[2017-11-05] MEDS: Insulin Glargine 25 UNITS in Pre-Filled Syringe 1 EACH SC SCH ×2 (10:25→22:08)
--- NOTE | 2017-11-05 11:26 | MRI ---
MRI BRAIN WITHOUT CONTRAST: HISTORY: Vertigo. Evaluate for posterior circulation syndrome. COMPARISON: 01/04/2017 TECHNIQUE: A brain MRI is performed without intravenous Gadolinium administration. FINDINGS: No hemorrhage on the axial gradient echo sequence. Stable calcified anterior right parafalcine lesio n, likely representing a meningioma of doubtful significance. No parenchymal mass, mass effect, or midline shift. Age appropriate brain volume. Cortical dumont whi te matter differentiation is preserved. Ventricles and sulci are patent and symmetric. The central arterial flow voids are maintained. There is no restricted diffusion. T2 and FLAIR white matter hyperintensity due to chronic small vessel ischemic change. There is mucosal disease involving the right sphenoid sinus and bilateral ethmoid air cells. Adequat e mastoid air cell aeration. The calvarium has a normal T1 marrow signal intensity. The midline brain parenchymal structures are unremarkable. IMPRESSION: 1. Absent restricted diffusion. No acute infarction. 2. Chronic small vessel ischemic change of the white matter. 3. Adequate aeration of the mastoid air cells. POS: [facility]
[2017-11-05 12:06] LABS: Eosinophils 5 % (0-10); Hemoglobin 10.2 g/dL (12.0-16.0); Hypochromia SLIGHT = 6-15 cells (100X) (0-5/hpf); Lymphocytes 30 % (21-51); MDiff Complete? YES; Mean Corpuscular HGB CONC 34.8 g/dL (32.0-36.0); Mean Corpuscular Hemoglobin 32.2 pg (27.0-31.0); Mean Corpuscular Volume 92.6 fL (78.0-98.0); Neutrophil 62 % (42-75); PLT Morphology Comment Appears Adequate; Platelet Count 168 thou/uL (130-400); Polychromasia SLIGHT = 2-3 cells (100X) (0-2/hpf); RBC Distribution Width 12.3 % (11.5-14.5); Reactive Lymphocytes 2 % (0-10); Red Blood Cell (RBC) Count 3.18 mill/uL (4.20-5.40); White Blood Cell (WBC) Count 7.3 thou/uL (4.8-10.8)
[2017-11-05] MEDS: HumaLOG 300 UNITS/3 ML VIAL SC PRN ×3 (13:16→22:10)
[2017-11-05] MEDS ORDERED: Nitroglycerin 0.4 MG TAB (25 Tab Bottle) SL PRN (15:06)
[2017-11-05] MEDS ORDERED: Diazepam 2 MG TAB PO PRN (15:06)
[2017-11-05] MEDS ORDERED: Atorvastatin Calcium 20 MG TAB PO SCH (21:00)
[2017-11-05] MEDS ORDERED: rOPINIRole HCl 1 MG TAB PO SCH (21:00)
[2017-11-05] MEDS: Sodium Chloride 0.9% 1,000 ML IV SCH (22:06)
[2017-11-05] MEDS: Gabapentin 100 MG CAP PO SCH (22:07)
[2017-11-05] MEDS: hydrALAZINE 25 MG TAB PO SCH (22:08)
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
--- NOTE | 2017-11-06 01:09 | DIS ---
DATE OF ADMISSION: 11/04/2017 DATE OF DISCHARGE: 11/05/2017 DISCHARGE DIAGNOSES: 1. Dizziness/vertigo, etiology unclear. 2. Sinus bradycardia, iatrogenic. 3. Chronic kidney disease, stage 3. 4. Diabetes mellitus, type 2, insulin requiring, poorly controlled. 5. Hypertension. 6. Polypharmacy. 7. Acute cystitis, suspected. CONSULTATIONS: Dr. Guan with Cardiology Service. Dr. Teresita Sanders with Neurology Service. PERTINENT LABORATORY AND X-RAY FINDINGS: Creatinine ranged between 1.28-1.61, estimated GFR ranged b etween 32-42. LFTs within normal limits. Troponin I negative x3. TSH 1.51. CBC showed a hemoglobi n 10.2. CT of the brain without contrast dated 11/03/2017 showed no acute intracranial process. MRI of the brain dated 11/05/2017 showed chronic ischemic small vessel changes. No acute infarct identi fied. HOSPITAL COURSE: Patient was admitted to the stroke unit after initially presenting with dizziness/v ertigo and concern for possible TIA or a neurologic event. The patient underwent a CT and MRI imagin g of the brain showing no acute process. The patient was evaluated by the Neurology Service without specific acute interventions recommended. The patient's symptoms likely multifactorial in addition t o polypharmacy, uncontrolled diabetes, hypertension, and deconditioned status. The patient received IV fluids and was titrated on her beta marianne therapy. Telemetry monitoring did show a sinus mechan ism with heart rates ranging in the 60s. Current recommendations are for tighter glycemic control on an ongoing basis after discharge. I have examined the patient at the time of discharge and discusse d followup instructions. The patient overall clinically stable and ready for discharge on 11/05/2017 . DISCHARGE MEDICATIONS: 1. Lipitor 40 mg p.o. at bedtime. 2. Diazepam 2 mg p.o. daily. 3. Hydralazine 25 mg p.o. b.i.d. 4. Levemir 25 units subcutaneously b.i.d. 5. Toprol-XL 25 mg p.o. b.i.d. 6. Multivitamin 1 tab p.o. daily. 7. Nitroglycerin 0.45 mg sublingually p.r.n. chest pain. 8. Protonix 40 mg p.o. b.i.d. 9. Ranexa 500 mg p.o. b.i.d. 10. Requip 1 mg p.o. at bedtime. 11. Sertraline 200 mg p.o. q.a.m. 12. Tramadol 50 mg p.o. daily p.r.n. 13. Enteric-coated aspirin 325 mg p.o. daily. 14. Lasix 20 mg p.o. b.i.d. 15. Neurontin 100 mg p.o. t.i.d. 16. Levothyroxine 75 mcg p.o. daily. 17. Macrobid 100 mg p.o. daily x3 days. FOLLOWUP: The patient may follow up with her primary care provider, Dr. Hero Hurtado within 7 days of discharge. CONDITION ON DISCHARGE: Stable. ACTIVITY: Ad lola. Rolling walker for ambulation. DIET: ADA and heart healthy. CODE STATUS: DO NOT RESUSCITATE. DISPOSITION: Home, 11/05/2017.
[2017-11-06] MEDS: hydrALAZINE 20 MG/ML VIAL SLOW IVP PRN (05:13)
[2017-11-06] MEDS ORDERED: Levothyroxine Sodium 75 MCG TAB PO SCH (06:00)
[2017-11-06] MEDS ORDERED: Aspirin 325 MG TAB PO SCH (09:00)
[2017-11-06] MEDS ORDERED: Multivitamin W/ Minerals 1 TAB PO SCH (09:00)
[2017-11-06] MEDS: Ondansetron HCl/PF 4 MG/2 ML Vial SLOW IVP PRN (09:26)
[2017-11-06] MEDS: Gabapentin 100 MG CAP PO SCH (09:28)
[2017-11-06] MEDS: hydrALAZINE 25 MG TAB PO SCH (09:28)
[2017-11-06] MEDS: Insulin Glargine 25 UNITS in Pre-Filled Syringe 1 EACH SC SCH (09:29)
--- NOTE | 2017-11-06 11:33 | PDOC.PN ---
- Subjective Encounter Start Date: 11/05/17 Encounter Start Time: 10:00 Subjective: f/u for vertigo/dizziness of unclear etiology likely related to recent -: enteritis and volume depletion. Work up currently negative. - Objective Resuscitation Status: Resuscitation Status DNR:Do Not Resuscitate MAR Reviewed: Yes Vital Signs & Weight: Vital Signs (12 hours) Temp Pulse Resp BP Pulse Ox 11/06/17 09:28 80 11/06/17 08:20 98 11/06/17 08:00 98.8 F 80 16 132/60 98 11/06/17 06:28 126/57 L 11/06/17 05:13 68 11/06/17 04:00 98.3 F 68 19 192/83 H 98 11/06/17 00:00 98.1 F 68 18 175/76 H 100 Weight Admit Weight 210 lb Weight 210 lb I&O: 11/05/17 11/06/17 11/07/17 06:59 06:59 06:59 Intake Total 2226 Balance 2226 Result Diagrams: 11/05/17 05:27 11/04/17 07:33 Additional Labs: Accuchecks 11/06/17 11/05/17 11/05/17 10:49 20:25 18:19 POC Glucose 253 H 384 H 344 H Laboratory Tests 02/01/16 02/03/16 02/03/16 15:12 04:37 04:37 Hemoglobin A1c 10.2 H TSH 3rd Generation B-Hydroxybutyrate 1.24 H 0.45 H 11/04/17 11:27 Hemoglobin A1c TSH 3rd Generation 1.5107 B-Hydroxybutyrate Radiology Reviewed by me: Yes (MRI Brain - no acute process) EKG Reviewed by me: Yes (Tele - SR in 70's) Phys Exam - Physical Examination Constitutional: NAD HEENT: PERRLA, sclera anicteric, oral pharynx no lesions Neck: no nodes, no JVD, supple, full ROM Respiratory: no wheezing, no rales, no rhonchi, clear to auscultation bilateral S1, S2 Cardiovascular: RRR, no significant murmur, no rub, gallop Gastrointestinal: soft, non-tender, no distention, positive bowel sounds Musculoskeletal: no edema, pulses present Neurological: normal sensation, moves all 4 limbs Psychiatric: A&O x 3 Skin: no rash, normal turgor, cap refill <2 seconds Dx/Plan (1) Vertigo Code(s): R42 - DIZZINESS AND GIDDINESS Status: Acute Comment: Likely multifactorial give recent enteritis and likely volume depletion, supportive mgmt, MRI brain negative (2) Sinus bradycardia Code(s): R00.1 - BRADYCARDIA, UNSPECIFIED Status: Chronic Comment: No current evidence of severe bradycardia, monitor residential given use of Coreg (3) Physical deconditioning Code(s): R53.81 - OTHER MALAISE Status: Chronic Comment: PT for mobilization , CM for Swing bed options (4) CKD (chronic kidney disease), stage III Status: Chronic Comment: Avoid nephrotoxic meds and limit contrast exposure, serial monitoring (5) Hyperglycemia due to type 2 diabetes mellitus Code(s): E11.65 - TYPE 2 DIABETES MELLITUS WITH HYPERGLYCEMIA Status: Chronic Comment: A1C 8.5 in 08/12, continue current insulin regimen (6) Hypertension Code(s): I10 - ESSENTIAL (PRIMARY) HYPERTENSION Status: Chronic Qualifiers: Hypertension type: essential hypertension Qualified Code(s): I10 - Essential (primary) hypertension Comment: Stable (7) Obesity (BMI 30-39.9) Code(s): E66.9 - OBESITY, UNSPECIFIED Status: Chronic (8) Cystitis Code(s): N30.90 - CYSTITIS, UNSPECIFIED WITHOUT HEMATURIA Status: Acute Comment: mild, continue Macrobid 100mg daily x 3 days - Plan continue antibiotics, PT/OT, family welfare social work professor, out of bed/ambulate, DVT proph w/ SCDs Stable overall -: Continue supportive mgmt -: Macrobid 100mg daily x 3 days -: PT for mobilization -: CM for swing bed options * Likely d/c in 24h
[2017-11-06 11:45] VITALS: TEMP 98.6
--- NOTE | 2017-11-06 12:37 | PRG ---
DATE OF SERVICE: 11/06/2017 Ms. Oropeza is doing well. No current complaints of chest pain, pressure, shortness of breath or oth er associated symptoms. She does complain of dizziness that persists. Her rhythm on telemetry monit oring has been stable. Her heart rate has increased after stopping beta marianne therapy. OBJECTIVE: VITAL SIGNS: Blood pressure 130/60, pulse 80, temperature 98. LUNGS: Clear to auscultation. CARDIAC: Regular rate and rhythm. ABDOMEN: Soft, nontender, nondistended. EXTREMITIES: No edema. IMPRESSION: 1. ? Transient ischemic attack. 2. Dizziness. 3. Coronary artery disease. 4. Status post stent placement. RECOMMENDATIONS: From a CV standpoint, Ms. Oropeza's status is stable. She has no current complaint s of angina. Her dizziness is not felt to be cardiac related. Recommend close outpatient followup. Otherwise, I have no further recommendations.
[2017-11-06 13:10] VITALS: BP 142/65
== END 2017-11-06 14:00 | disposition swing bed (61) | DRG 312 ==
LOC: ERS 06:38 → ERHOLD 11:13 → 2SE 16:54
PROVIDERS: ADMIT Internal Medicine; ATTEND Internal Medicine
DX: R55 Syncope and collapse (principal); E87.1 Hypo-osmolality and hyponatremia; N30.00 Acute cystitis without hematuria; R42 Dizziness and giddiness; E86.0 Dehydration; I25.10 Atherosclerotic heart disease of native coronary artery without angina pectoris; E78.5 Hyperlipidemia, unspecified; E03.9 Hypothyroidism, unspecified; Z86.73 Personal history of transient ischemic attack (TIA), and cerebral infarction without residual deficits; K21.9 Gastro-esophageal reflux disease without esophagitis; F41.9 Anxiety disorder, unspecified; F32.9 Major depressive disorder, single episode, unspecified; M19.90 Unspecified osteoarthritis, unspecified site; Z66 Do not resuscitate; Z79.4 Long term (current) use of insulin; I12.9 Hypertensive chronic kidney disease with stage 1 through stage 4 chronic kidney disease, or unspecified chronic kidney disease; E11.22 Type 2 diabetes mellitus with diabetic chronic kidney disease; N18.3 Chronic kidney disease, stage 3 (moderate); E78.00 Pure hypercholesterolemia, unspecified
CPT/HCPCS: 36415; 36416; 70551; 80053; 81003; 82553; 82947; 84443; 84484; 85007; 85025; 85027; 93005; 93306; 96365; A4216; G8978-GP-CL; G8979-GP-CJ; J0360; J0696; J2405

== ENCOUNTER 2017-12-11 16:33 | Observation (INO) | payer MEDICARE ==
[2017-12-11] MEDS ORDERED: Nitroglycerin 2% Ointment 1 INCH/1 GM Packet ONE (17:29)
[2017-12-11] MEDS ORDERED: Diazepam 2 MG TAB PO PRN (18:54)
[2017-12-11] MEDS ORDERED: Melatonin 3 MG TAB PO PRN (18:55)
[2017-12-11] MEDS ORDERED: Dextrose 5% in Water 1,000 ML IV PRN (18:55)
[2017-12-11] MEDS ORDERED: Dextrose 50% Abboject 50 ML SYRINGE SLOW IVP PRN (18:55)
[2017-12-11] MEDS ORDERED: Nitroglycerin 0.4 MG TAB (25 Tab Bottle) ONE (19:21)
[2017-12-11] MEDS ORDERED: ALPRAZolam 0.5 MG TAB ONE (19:21)
[2017-12-11 19:54] LABS: Anion Gap 10 mmol/L (10-20); BUN (Urea Nitrogen) 17 mg/dL (9.8-20.1); Calc. Creatinine Clearance 0 mL/min (70-130); Calcium 9.2 mg/dL (7.8-10.44); Carbon Dioxide 26 mmol/L (23-31); Chloride 105 mmol/L (98-107); Estimated GFR-MDRD 59; Glucose 241 mg/dL (80-115); Potassium 4.3 mmol/L (3.5-5.1); Sodium 137 mmol/L (136-145)
[2017-12-11 19:57] LABS: CKMB 2.8 ng/mL (0-6.6); Troponin I 0.033 ng/mL (< 0.028)
[2017-12-11] MEDS ORDERED: cloNIDine 0.1 MG TAB PO PRN (19:59)
[2017-12-11] MEDS ORDERED: Metoprolol Tartrate 25 MG TAB ONE (20:05)
[2017-12-11] MEDS ORDERED: hydrALAZINE 25 MG TAB ONE (20:06)
[2017-12-11] MEDS ORDERED: Non-Formulary Item 1 EACH (Levemir Flexpen [Levemir Flexpen] 25 UNITS) SC SCH (21:00)
[2017-12-11] MEDS ORDERED: traZODone HCl 50 MG TAB PO PRN (21:12)
[2017-12-11] MEDS: hydrALAZINE 25 MG TAB PO SCH (21:37)
[2017-12-11] MEDS: Insulin Glargine 25 UNITS in Pre-Filled Syringe 1 EACH SC SCH (21:51)
[2017-12-11] MEDS: Lisinopril 20 MG TAB PO SCH (21:51)
[2017-12-11] MEDS: Heparin 5,000 UNITS/ML VIAL SC SCH (21:51)
[2017-12-11] MEDS: Atorvastatin Calcium 20 MG TAB PO SCH (21:52)
[2017-12-11] MEDS: rOPINIRole HCl 1 MG TAB PO SCH (21:52)
[2017-12-11] MEDS: Gabapentin 100 MG CAP PO SCH (21:52)
[2017-12-11 23:01] LABS: Troponin I 0.032 ng/mL (< 0.028)
--- NOTE | 2017-12-11 23:56 | HP ---
CHIEF COMPLAINT: Dizziness, lightheadedness. HISTORY OF PRESENT ILLNESS: The patient is a very pleasant 67-year-old female who comes to the [facility] for dizziness and lightheadedness. Patient also has a past medical history of coronary artery di sease, status post the stents that were placed in. She also has a history of diabetes, has a history of hypothyroidism, anxiety and depression. The patient stated that her lightheadedness and dizzines s started about Saturday. She denies any chest pain or chest pressure or any shortness of breath, any nausea or vomiting. She did have 2 bouts of diarrhea today. The patient stated that she is under a lot of stress since her family, which is her [id number], her brother and her one sister called [facility] on patient. Patient stated that that has caused her tremendous amount of anxi ety and stress and she also had some argument via text messaging starting on Saturday when she went to a birthday democr[employer]. The patient is very upset about this whole situation and felt that her dizziness a nd lightheaded started since Saturday. She did not pass out, did not have a syncopal episode per patie nt. She also states that she has not been sleeping very well; however, she has been eating and drink ing okay. She also states that she has been very anxious and when she gets anxious she starts shakin g. 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 PAST SURGICAL HISTORY: She has had a coronary artery disease with coronary stents placement, bilater al carpal tunnel release, cholecystectomy, gastroplasty, hysterectomy, cervical diskectomy and thyroi dectomy and splenic artery embolization. ALLERGIES: She is allergic to OFLOXACIN and DEXAMETHASONE. FAMILY HISTORY: Positive for diabetes. SOCIAL HISTORY: She lives alone. She is very independent, denies any alcohol, tobacco, smoking or d rug abuse. MEDICATIONS: This is per her last discharge, which just was very, very very recent on 11/15/2017 and her medications are as of the following: She is on aspirin 325 daily, Lipitor 40 mg daily, Tessalon Perles 100 mg b.i.d. p.r.n., Valium 2 mg p.o. p.r.n., Lasix 40 mg b.i.d., Neurontin 100 mg t.i.d., hydralazine 50 mg t.i.d., Lantus 45 units b.i.d. Levoxyl 75 mcg every morning. She takes Toprol-XL 2 5 mg b.i.d., Protonix 40 mg b.i.d., Ranexa 500 mg b.i.d., Requip 1 mg daily, Zoloft mg daily, t ramadol 50 mg q.6 hours p.r.n. Patient normally walks with a walker. PHYSICAL EXAMINATION: VITAL SIGNS: As of the following her temperature she was afebrile at 98.0. Her blood pressure seeme d to be slightly elevated at 160/101, pulse was 82 and she is 96% on room air, 16 respirations. GENERAL: She is awake, alert, appears to be a little bit anxious. HEENT: Normocephalic, atraumatic. NECK: No lymphadenopathy noted. CARDIOVASCULAR: S1, S2 present. No murmurs, rubs or gallops. LUNGS: Clear upon auscultation, rhonchi or wheezes noted. ABDOMEN: Soft, nontender. Bowel sounds are present x2. EXTREMITIES: No edema. Pedal pulses present x2. SKIN: She does have this very small petechial rash just on her right arm and she stated that happene d early at [facility] when they put the blood pressure cuff on. No petechial rash was noted anywhere else . NEUROVASCULAR: No focal deficits noted. LABORATORY DATA: As of the following: WBC of 6.6, hemoglobin of 12.1, hematocrit 36.3, platelets of 180. Chemistry: Sodium of 136, potassium of 4.0, BUN of 19, creatinine of 1.23. Her sugar initial ly was 426. She also had a chest x-ray, which appeared to be at baseline. No significant changes we re noted upon my interpretation. Her troponin initially was 0.030, went up to 0.038 and went up to 0 .045. EKG, no significant changes were noted. ASSESSMENT AND PLAN: The patient is a very pleasant 67-year-old female who initially presented to [facility] for dizziness and lightheadedness. At that time, she was worked up for possible cardiac related risk factors. She did have a mild elevated troponin. However, she never complained of any chest pain. The patient did not have a syncopal episode. She was also found hyperglycemic, which was fixed with giving her some regular insulin. She was transferred here for further evaluatio n. 1. Elevated troponins, mildly elevated troponins. The patient does not have any chest pain. EKG, n o significant changes. We will continue to trend enzymes for another 2 sets. Also, I have ordered a stress test for her for this morning. She did have an echocardiogram done on 10/2017 which indicate d an EF of 55%-60% with no significant diastolic dysfunction and I believe her dizziness and lighthea dedness which she also had last time and was seen by neuro and undergone MRI brain, which did not ind icate any acute abnormalities. I think her dizziness and lightheadedness is most likely secondary to her anxiety. However, given her cardiac history, we will go ahead and do a stress test to rule out any acute abnormalities. The patient is obviously very anxious. 2. Diabetes. Her sugars were very high when she came in. The patient actually gets meals at [facility] twice a day and according to her, she has been compliant with her medications. We will torrey nue to monitor. We will continue her home medications also. 3. Anxiety and depression. We will continue the patient's home medication. 4. Deep venous thrombosis prophylaxis. We will put patient on subcu heparin.
[2017-12-12 02:26] LABS: Troponin I 0.027 ng/mL (< 0.028)
[2017-12-12] MEDS: Heparin 5,000 UNITS/ML VIAL SC SCH ×2 (08:10→14:25)
[2017-12-12] MEDS: Lisinopril 20 MG TAB PO SCH (08:10)
[2017-12-12] MEDS: Multivitamin W/ Minerals 1 TAB PO SCH (08:11)
[2017-12-12] MEDS: Aspirin 325 MG TAB PO SCH (08:11)
[2017-12-12] MEDS: hydrALAZINE 25 MG TAB PO SCH ×2 (08:11→14:26)
[2017-12-12] MEDS: Gabapentin 100 MG CAP PO SCH ×2 (08:11→14:26)
[2017-12-12] MEDS ORDERED: Prevnar 13-Val Conj/PF 0.5 ML SYRINGE IM ONE (09:00)
[2017-12-12] MEDS ORDERED: Non-Formulary Item 1 EACH (Multivitamin/Iron/Folic Acid [Centrum Adults Tablet] 1 EACH) PO SCH (09:00)
[2017-12-12] MEDS: Insulin Glargine 25 UNITS in Pre-Filled Syringe 1 EACH SC SCH (12:57)
[2017-12-12] MEDS: HumaLOG 300 UNITS/3 ML VIAL SC PRN ×2 (14:25→18:04)
--- NOTE | 2017-12-12 14:40 | PDOC.PN ---
- Subjective Encounter Start Date: 12/12/17 Encounter Start Time: 09:00 -: old records requested/rev Pt seen and examined, chart reviewed in its entirety, this is my first visit with this patient Follow up for dizziness and CP. Stress test today, stress part done, resting part in AM No F/C, no N/V/D/C, no CP or SOB, no cough or sputum production All systems reviewed and neg except as stated above - Objective MAR Reviewed: Yes Vital Signs & Weight: Vital Signs (12 hours) Temp Pulse Resp BP BP BP BP 12/12/17 11:30 97.8 F 73 20 143/74 H 12/12/17 08:11 63 12/12/17 08:10 179/86 H 12/12/17 07:17 97.5 F L 63 20 164/93 H 233/97 H 174/76 H Pulse Ox 12/12/17 11:30 98 12/12/17 08:11 12/12/17 08:10 12/12/17 07:17 97 Weight Weight 202 lb Result Diagrams: 12/14/17 05:47 12/11/17 19:24 Additional Labs: Accuchecks 12/12/17 12/12/17 12/11/17 11:34 05:53 21:50 POC Glucose 353 H 322 H 345 H 12/11/17 16:42 POC Glucose 191 H Radiology Reviewed by me: Yes EKG Reviewed by me: Yes Phys Exam - Physical Examination Constitutional: NAD HEENT: PERRLA, moist MMs, sclera anicteric, oral pharynx no lesions Neck: no nodes, no JVD, supple, full ROM Respiratory: no wheezing, no rales, no rhonchi, clear to auscultation bilateral Cardiovascular: RRR, no significant murmur Gastrointestinal: soft, non-tender, no distention, positive bowel sounds Musculoskeletal: edema present Neurological: non-focal, normal sensation, moves all 4 limbs Lymphatic: no nodes Psychiatric: normal affect, A&O x 3 Skin: no rash, normal turgor, cap refill <2 seconds Dx/Plan (1) Dizziness Code(s): R42 - DIZZINESS AND GIDDINESS Status: Chronic Comment: no events overnight, CT neg, MRI neg. Stress test completed and neg. (2) CKD (chronic kidney disease), stage III Status: Chronic Comment: Avoid nephrotoxic meds and limit contrast exposure, serial monitoring (3) Diabetes type 2, uncontrolled Code(s): E11.65 - TYPE 2 DIABETES MELLITUS WITH HYPERGLYCEMIA Status: Chronic Qualifiers: Glycemic state: with hyperglycemia Qualified Code(s): E11.65 - Type 2 diabetes mellitus with hyperglycemia (4) Hypothyroidism Code(s): E03.9 - HYPOTHYROIDISM, UNSPECIFIED Status: Chronic Qualifiers: Hypothyroidism type: acquired Qualified Code(s): E03.9 - Hypothyroidism, unspecified Comment: Continue Levothyroxine 75mcg po daily (5) Obesity (BMI 30-39.9) Code(s): E66.9 - OBESITY, UNSPECIFIED Status: Chronic (6) Hypertension Code(s): I10 - ESSENTIAL (PRIMARY) HYPERTENSION Status: Chronic Qualifiers: Hypertension type: essential hypertension Qualified Code(s): I10 - Essential (primary) hypertension Comment: meds adjusted - Plan cont current plan of care, PT/OT, case management social worker, respiratory therapy, out of bed/ambulate Rest portion of stress in AM, if normal, will discharge
[2017-12-12] MEDS ORDERED: ADENOSINE 60 MG/20 ML VIAL ONE (16:14)
--- NOTE | 2017-12-12 21:43 | CT ---
CT HEAD NONCONTRAST: 12/12/17 HISTORY: Altered mental status. Left weakness. COMPARISON: Emergency afterhours exam from 11/03/17. FINDINGS: There is no evidence of acute intracranial hemorrhage or infarct. Physiologic calcification at each b leonila ganglia is stable. There is no mass effect or shift of midline structures. Ventricles appear nor mal in size, shape, and position. IMPRESSION: Chronic type findings are stable. No acute intracranial abnormalities are demonstrated. POS: JAY
[2017-12-12 21:44] LABS: INR-International Normal Ratio 0.9; PTT 30.7 SEC (22.9-36.1); Prothrombin Time 12.1 SEC (12.0-14.7)
[2017-12-12] MEDS ORDERED: Atorvastatin Calcium 40 MG TAB PO SCH (22:00)
[2017-12-12 22:02] LABS: CKMB 2.4 ng/mL (0-6.6); Troponin I Less than 0.010 ng/mL (< 0.028)
[2017-12-12 22:14] VITALS: BMI 32.1
[2017-12-12 22:16] LABS: Thyroid Stimulating Hormone 1.6386 uIU/mL (0.35-4.94)
[2017-12-12 22:21] LABS: BHCG - Serum Negative (NEGATIVE); Pregs Control Background? CLEAR/WHITE (CLR/WHITE); Pregs Control Bar Appear? YES (CONTROL BAR)
[2017-12-13] MEDS: hydrALAZINE 25 MG TAB PO SCH ×3 (00:23→22:38)
[2017-12-13] MEDS: Lisinopril 20 MG TAB PO SCH ×3 (00:23→22:43)
[2017-12-13] MEDS: Heparin 5,000 UNITS/ML VIAL SC SCH ×4 (00:47→22:44)
[2017-12-13] MEDS: Gabapentin 100 MG CAP PO SCH ×4 (00:47→22:43)
[2017-12-13] MEDS: rOPINIRole HCl 1 MG TAB PO SCH ×2 (00:48→22:42)
[2017-12-13] MEDS: Atorvastatin Calcium 20 MG TAB PO SCH (00:49)
[2017-12-13] MEDS: Insulin Glargine 25 UNITS in Pre-Filled Syringe 1 EACH SC SCH ×3 (00:56→22:40)
[2017-12-13] MEDS: HumaLOG 300 UNITS/3 ML VIAL SC PRN (01:06)
--- NOTE | 2017-12-13 05:55 | PDOC.EVN ---
Event Note - Event Note Event Note: WIRE ANNEALER was called Patient was noted by her nurse to be slurring on her speech. This was different from parents baseline so an WIRE ANNEALER was called for patient to be evaluated for stroke. Patients vitals were reviewed and showed some hypertension when patient was originally admitted with systolic BP > 180's. Current BY is less that 120's systolic. Blood sugars were drawn which was elevated > 200's. Physical exams showed NIHSS of ~3. CT of the head, CTA of head and neck was ordered which was negative for stroke. MRI of the head was ordered. Labs and ekg were ordered. patient Atorvastatin increased to 80mg.
--- NOTE | 2017-12-13 07:45 | CT ---
CT ARTERIOGRAM NECK WITH IV CONTRAST AND 3D MIP IMAGING CT ARTERIOGRAM HEAD WITH IV CONTRAST AND 3D MIP IMAGING CT BRAIN WITH IV CONTRAST 12/12/17 HISTORY: Possible bleed. Left sided weakness. Altered mental status. FINDINGS: There is bovine origin of the great vessels at the aortic arch. Good flow into each internal carotid and vertebral system. Mild plaque and calcification at the left carotid bifurcation. No significant s tenosis. [place] is intact. Calcification at each carotid siphon. Good flow into each cerebral system . No evidence of occlusion or embolus. Left thyroid lobe not visualized. Possibly surgically absent. Postoperative and degenerative changes cervical spine. No abnormal areas of intracranial contrast enhancement are apparent. IMPRESSION: Atherosclerosis. No acute abnormalities are demonstrated. POS: JAY
[2017-12-13] MEDS: Levothyroxine Sodium 75 MCG TAB PO SCH (10:26)
[2017-12-13] MEDS: Aspirin 325 MG TAB PO SCH (10:26)
--- NOTE | 2017-12-13 10:28 | NM ---
RADIONUCLIDE STRESS REST MYOCARDIAL PERFUSION SCAN WITH CT ATTENUATION CORRECTION AND SPECT IMAGING LEFT VENTRICULAR WALL MOTION EVALUATION AND EJECTION FRACTION: HISTORY: Chest pain. FINDINGS: Adenosine protocol. There is homogeneous uptake of radiotracer throughout the left ventricular myoca rdium. No focal perfusion defect or reversibility. QGS analysis of gated SPECT images shows no foca l wall motion abnormalities. Ejection fraction calculated at 68%. IMPRESSION: Normal myocardial perfusion scan. Normal left ventricular ejection fraction. POS: LOU
[2017-12-13] MEDS: Multivitamin W/ Minerals 1 TAB PO SCH (10:36)
--- NOTE | 2017-12-13 12:54 | MRI ---
MRI BRAIN NONCONTRAST: HISTORY: TIA. Left-sided weakness. COMPARISON: 11/05/2017. FINDINGS: There is no evidence of acute intracranial hemorrhage or infarct. Scattered areas of old lacunar inf arct and mild chronic ischemic small vessel disease are stable compared to the previous MRI exam. Th ere is no mass effect or shift of midline structures. Visualized paranasal sinuses remain well aerat ed. IMPRESSION: No acute intracranial abnormalities are demonstrated. POS: LOU
[2017-12-13] MEDS: Atorvastatin Calcium 40 MG TAB PO SCH (22:41)
[2017-12-14] MEDS: HumaLOG 300 UNITS/3 ML VIAL SC PRN ×2 (01:17→21:31)
[2017-12-14 06:45] LABS: Band 1 % (5-11); Eosinophils 4 % (0-10); Hypochromia SLIGHT = 6-15 cells (100X) (0-5/hpf); Lymphocytes 33 % (21-51); MDiff Complete? YES; Mean Corpuscular Hemoglobin 29.9 pg (27.0-31.0); Mean Corpuscular Volume 90.6 fL (78.0-98.0); Mean Platelet Volume 8.3 fL (7.4-10.4); Monocytes 9 % (0-10); Neutrophil 53 % (42-75); PLT Morphology Comment Appears Adequate; Platelet Count 166 thou/uL (130-400); RBC Distribution Width 12.2 % (11.5-14.5); Red Blood Cell (RBC) Count 3.34 mill/uL (4.20-5.40); White Blood Cell (WBC) Count 7.3 thou/uL (4.8-10.8)
--- NOTE | 2017-12-14 08:41 | EKG ---
Test Reason : STAT Blood Pressure : / mmHG Vent. Rate : 076 BPM Atrial Rate : 076 BPM P-R Int : 140 ms QRS Dur : 094 ms QT Int : 392 ms P-R-T Axes : 066 -24 032 degrees QTc Int : 441 ms Normal sinus rhythm Nonspecific T wave abnormality Abnormal ECG When compared with ECG of 11-DEC-2017 17:21, (Unconfirmed) No significant change was found Confirmed by AMRIK BARRETT ([id number]) on 12/14/2017 8:40:57 AM Referred By: Confirmed By:AMRIK BARRETT
[2017-12-14] MEDS: Heparin 5,000 UNITS/ML VIAL SC SCH ×3 (09:23→21:14)
[2017-12-14] MEDS: Insulin Glargine 25 UNITS in Pre-Filled Syringe 1 EACH SC SCH ×2 (09:23→21:05)
[2017-12-14] MEDS: Levothyroxine Sodium 75 MCG TAB PO SCH (09:24)
[2017-12-14] MEDS: hydrALAZINE 25 MG TAB PO SCH ×2 (09:24→21:07)
[2017-12-14] MEDS: Gabapentin 100 MG CAP PO SCH ×3 (09:24→21:08)
[2017-12-14] MEDS: Lisinopril 20 MG TAB PO SCH ×2 (09:24→21:08)
[2017-12-14] MEDS: Aspirin 325 MG TAB PO SCH (09:24)
[2017-12-14] MEDS: Multivitamin W/ Minerals 1 TAB PO SCH (09:24)
--- NOTE | 2017-12-14 11:46 | PDOC.PN ---
- Subjective Encounter Start Date: 12/13/17 Encounter Start Time: 13:00 overnight events rviewed, MRI done and resting portion of stress test done/ BP better today, pt feels much better No f/C, no N/V/D/c, no cough or sputum production All systems reviewed and neg x as above - Objective MAR Reviewed: Yes Vital Signs & Weight: Vital Signs (12 hours) Temp Pulse Resp BP Pulse Ox 12/14/17 07:59 98.4 F 67 20 136/63 96 12/14/17 03:28 98.1 F 62 18 137/63 97 12/13/17 23:44 98.4 F 67 16 169/72 H 94 L Weight Weight 199 lb I&O: 12/13/17 12/14/17 12/15/17 06:59 06:59 06:59 Intake Total 640 870 Output Total 500 Balance 140 870 Result Diagrams: 12/14/17 05:47 12/11/17 19:24 Additional Labs: Accuchecks 12/14/17 12/14/17 12/14/17 10:39 06:05 00:57 POC Glucose 149 H 81 345 H Radiology Reviewed by me: Yes EKG Reviewed by me: Yes Phys Exam - Physical Examination Constitutional: NAD HEENT: PERRLA, moist MMs, sclera anicteric, oral pharynx no lesions Neck: no nodes, no JVD, supple, full ROM Respiratory: no wheezing, no rales, no rhonchi, clear to auscultation bilateral Cardiovascular: RRR, no significant murmur, no rub Gastrointestinal: soft, non-tender, no distention, positive bowel sounds Musculoskeletal: edema present Neurological: non-focal, normal sensation, moves all 4 limbs Lymphatic: no nodes Psychiatric: normal affect, A&O x 3 Skin: no rash, normal turgor, cap refill <2 seconds Dx/Plan (1) Dizziness Code(s): R42 - DIZZINESS AND GIDDINESS Status: Chronic Comment: event sovernight reviewed, CT neg, MRI pending. Stress test completed follow up on results (2) CKD (chronic kidney disease), stage III Status: Chronic Comment: Avoid nephrotoxic meds and limit contrast exposure, serial monitoring (3) Diabetes type 2, uncontrolled Code(s): E11.65 - TYPE 2 DIABETES MELLITUS WITH HYPERGLYCEMIA Status: Chronic Qualifiers: Glycemic state: with hyperglycemia Qualified Code(s): E11.65 - Type 2 diabetes mellitus with hyperglycemia (4) Hypothyroidism Code(s): E03.9 - HYPOTHYROIDISM, UNSPECIFIED Status: Chronic Qualifiers: Hypothyroidism type: acquired Qualified Code(s): E03.9 - Hypothyroidism, unspecified Comment: Continue Levothyroxine 75mcg po daily (5) Obesity (BMI 30-39.9) Code(s): E66.9 - OBESITY, UNSPECIFIED Status: Chronic - Plan cont current plan of care, 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
[2017-12-14] MEDS: Atorvastatin Calcium 40 MG TAB PO SCH (21:08)
[2017-12-14] MEDS: rOPINIRole HCl 1 MG TAB PO SCH (21:08)
[2017-12-15] MEDS: Multivitamin W/ Minerals 1 TAB PO SCH (08:22)
[2017-12-15] MEDS: Lisinopril 20 MG TAB PO SCH ×2 (08:22→21:01)
[2017-12-15] MEDS: Gabapentin 100 MG CAP PO SCH ×3 (08:22→21:02)
[2017-12-15] MEDS: hydrALAZINE 25 MG TAB PO SCH ×2 (08:23→21:02)
[2017-12-15] MEDS: Aspirin 325 MG TAB PO SCH (08:23)
[2017-12-15] MEDS: Heparin 5,000 UNITS/ML VIAL SC SCH ×3 (08:23→21:00)
[2017-12-15] MEDS: Levothyroxine Sodium 75 MCG TAB PO SCH (08:23)
[2017-12-15] MEDS: Insulin Glargine 25 UNITS in Pre-Filled Syringe 1 EACH SC SCH ×2 (12:19→21:00)
--- NOTE | 2017-12-15 15:12 | PDOC.PN ---
- Subjective Encounter Start Date: 12/14/17 Encounter Start Time: 14:00 follow up for dizziness, then developed left sided weakness and slurred speeck. MRI negative, no further spells with BP controlled. pt seen by Pt/OT today, not dafe to go home, rehab screen initiated Feels better overall No F/C, no N/V/d/C, no CP or SOB all systems reviewed and neg x as above - Objective MAR Reviewed: Yes Vital Signs & Weight: Vital Signs (12 hours) Temp Pulse Resp BP BP Pulse Ox 12/15/17 12:00 97.7 F 64 18 132/60 96 12/15/17 07:57 98.1 F 78 20 153/67 H 98 12/15/17 03:39 98.1 F 65 18 161/70 H 97 Weight Weight 199 lb I&O: 12/14/17 12/15/17 12/16/17 06:59 06:59 06:59 Intake Total 870 1740 Output Total 450 Balance 870 1290 Result Diagrams: 12/14/17 05:47 12/11/17 19:24 Additional Labs: Accuchecks 12/15/17 12/15/17 12/14/17 10:54 05:42 20:09 POC Glucose 178 H 75 276 H 12/14/17 16:45 POC Glucose 361 H Phys Exam - Physical Examination Constitutional: NAD HEENT: PERRLA, moist MMs, sclera anicteric, oral pharynx no lesions Neck: no nodes, no JVD, supple, full ROM Respiratory: no wheezing, no rales, no rhonchi, clear to auscultation bilateral Cardiovascular: RRR, no significant murmur, no rub Gastrointestinal: soft, non-tender, no distention, positive bowel sounds Musculoskeletal: edema present Neurological: non-focal, normal sensation, moves all 4 limbs Lymphatic: no nodes Psychiatric: normal affect, A&O x 3 Skin: no rash, normal turgor, cap refill <2 seconds Dx/Plan (1) Dizziness Code(s): R42 - DIZZINESS AND GIDDINESS Status: Chronic Comment: no events overnight, CT neg, MRI neg. Stress test completed and neg. (2) CKD (chronic kidney disease), stage III Status: Chronic Comment: Avoid nephrotoxic meds and limit contrast exposure, serial monitoring (3) Diabetes type 2, uncontrolled Code(s): E11.65 - TYPE 2 DIABETES MELLITUS WITH HYPERGLYCEMIA Status: Chronic Qualifiers: Glycemic state: with hyperglycemia Qualified Code(s): E11.65 - Type 2 diabetes mellitus with hyperglycemia (4) Hypothyroidism Code(s): E03.9 - HYPOTHYROIDISM, UNSPECIFIED Status: Chronic Qualifiers: Hypothyroidism type: acquired Qualified Code(s): E03.9 - Hypothyroidism, unspecified Comment: Continue Levothyroxine 75mcg po daily (5) Obesity (BMI 30-39.9) Code(s): E66.9 - OBESITY, UNSPECIFIED Status: Chronic - Plan cont current plan of care, 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 to REHAB when arranged
--- NOTE | 2017-12-15 15:17 | PDOC.PN ---
- Subjective Encounter Start Date: 12/15/17 Encounter Start Time: 12:[address] [facility] better, PT/Ot recommend rehab, approval pending some nausea, no vomiting, dizziness ok but comes and goes. No F/c, no N/V/D/C No CP or SOB all systesm reviewed and neg x as above, iban po fine - Objective MAR Reviewed: Yes Vital Signs & Weight: Vital Signs (12 hours) Temp Pulse Resp BP BP Pulse Ox 12/15/17 12:00 97.7 F 64 18 132/60 96 12/15/17 07:57 98.1 F 78 20 153/67 H 98 12/15/17 03:39 98.1 F 65 18 161/70 H 97 Weight Weight 199 lb I&O: 12/14/17 12/15/17 12/16/17 06:59 06:59 06:59 Intake Total 870 1740 Output Total 450 Balance 870 1290 Result Diagrams: 12/14/17 05:47 12/11/17 19:24 Additional Labs: Accuchecks 12/15/17 12/15/17 12/14/17 10:54 05:42 20:09 POC Glucose 178 H 75 276 H 12/14/17 16:45 POC Glucose 361 H Radiology Reviewed by me: Yes Phys Exam - Physical Examination Constitutional: NAD HEENT: PERRLA, moist MMs, sclera anicteric, oral pharynx no lesions Neck: no nodes, no JVD, supple, full ROM Respiratory: no wheezing, no rales, no rhonchi, clear to auscultation bilateral Cardiovascular: RRR, no significant murmur, no rub Gastrointestinal: soft, non-tender, no distention, positive bowel sounds Musculoskeletal: no edema Neurological: non-focal, normal sensation, moves all 4 limbs Lymphatic: no nodes Psychiatric: normal affect, A&O x 3 Skin: no rash, normal turgor, cap refill <2 seconds Dx/Plan (1) Dizziness Code(s): R42 - DIZZINESS AND GIDDINESS Status: Chronic Comment: no events overnight, CT neg, MRI neg. Stress test completed and neg. (2) CKD (chronic kidney disease), stage III Status: Chronic Comment: Avoid nephrotoxic meds and limit contrast exposure, serial monitoring (3) Diabetes type 2, uncontrolled Code(s): E11.65 - TYPE 2 DIABETES MELLITUS WITH HYPERGLYCEMIA Status: Chronic Qualifiers: Glycemic state: with hyperglycemia Qualified Code(s): E11.65 - Type 2 diabetes mellitus with hyperglycemia (4) Hypothyroidism Code(s): E03.9 - HYPOTHYROIDISM, UNSPECIFIED Status: Chronic Qualifiers: Hypothyroidism type: acquired Qualified Code(s): E03.9 - Hypothyroidism, unspecified Comment: Continue Levothyroxine 75mcg po daily (5) Obesity (BMI 30-39.9) Code(s): E66.9 - OBESITY, UNSPECIFIED Status: Chronic (6) Hypertension Code(s): I10 - ESSENTIAL (PRIMARY) HYPERTENSION Status: Chronic Qualifiers: Hypertension type: essential hypertension Qualified Code(s): I10 - Essential (primary) hypertension Comment: meds adjusted - Plan cont current plan of care, 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
[2017-12-15] MEDS: Atorvastatin Calcium 40 MG TAB PO SCH (21:01)
[2017-12-15] MEDS: rOPINIRole HCl 1 MG TAB PO SCH (21:02)
[2017-12-16] MEDS: Multivitamin W/ Minerals 1 TAB PO SCH (09:49)
[2017-12-16] MEDS: Lisinopril 20 MG TAB PO SCH ×2 (09:49→21:13)
[2017-12-16] MEDS: hydrALAZINE 25 MG TAB PO SCH ×2 (09:50→21:13)
[2017-12-16] MEDS: Aspirin 325 MG TAB PO SCH (09:50)
[2017-12-16] MEDS: Levothyroxine Sodium 75 MCG TAB PO SCH (09:50)
[2017-12-16] MEDS: Gabapentin 100 MG CAP PO SCH ×3 (09:50→21:11)
[2017-12-16] MEDS: Heparin 5,000 UNITS/ML VIAL SC SCH ×3 (09:50→21:21)
[2017-12-16] MEDS: Insulin Glargine 25 UNITS in Pre-Filled Syringe 1 EACH SC SCH ×2 (09:50→21:20)
[2017-12-16] MEDS: traMADol HCl 50 MG TAB PO PRN ×2 (14:38→21:29)
--- NOTE | 2017-12-16 19:09 | PDOC.PN ---
- Subjective Encounter Start Date: 12/16/17 Encounter Start Time: 18:45 Subjective: f/u for general weakness and deconditioning pending approval for rehab. -: Feels ok overall. Appetite good. - Objective MAR Reviewed: Yes Vital Signs & Weight: Vital Signs (12 hours) Temp Pulse Pulse Pulse Pulse Resp BP 12/16/17 15:36 97.8 F 60 16 12/16/17 14:21 12/16/17 11:58 98 F 60 16 12/16/17 10:05 65 63 12/16/17 08:59 62 62 185/72 H 12/16/17 08:00 98.2 F 55 L 18 BP BP BP BP Pulse Ox Pulse Ox Pulse Ox 12/16/17 15:36 165/73 H 96 12/16/17 14:21 174/71 H 12/16/17 11:58 157/67 H 97 12/16/17 10:05 143/65 H 167/71 H 12/16/17 08:59 179/105 H 98 98 12/16/17 08:00 131/72 98 Weight Weight 199 lb I&O: 12/15/17 12/16/17 12/17/17 06:59 06:59 06:59 Intake Total 1740 920 Output Total 450 Balance 1290 920 Result Diagrams: 12/14/17 05:47 12/11/17 19:24 Additional Labs: Accuchecks 12/16/17 12/16/17 12/15/17 16:31 06:02 20:32 POC Glucose 255 H 148 H 261 H Radiology Reviewed by me: Yes (Echo -EF 45-50%, diast dysfxn) EKG Reviewed by me: Yes (Tele - SR) Phys Exam - Physical Examination Constitutional: NAD HEENT: PERRLA, sclera anicteric, oral pharynx no lesions Neck: no nodes, no JVD, supple, full ROM Respiratory: no wheezing, no rales, no rhonchi, clear to auscultation bilateral S1, S2 Cardiovascular: RRR, no significant murmur, no rub, gallop Gastrointestinal: soft, non-tender, no distention, positive bowel sounds Musculoskeletal: no edema, pulses present Neurological: non-focal, normal sensation, moves all 4 limbs Psychiatric: normal affect, A&O x 3 Skin: no rash, normal turgor, cap refill <2 seconds Dx/Plan (1) Dizziness Code(s): R42 - DIZZINESS AND GIDDINESS Status: Chronic Comment: no events overnight, CT neg, MRI neg. Stress test completed and neg, PT for mobilization , SNF options pending (2) Hypertension Code(s): I10 - ESSENTIAL (PRIMARY) HYPERTENSION Status: Chronic Qualifiers: Hypertension type: essential hypertension Qualified Code(s): I10 - Essential (primary) hypertension Comment: Labile, monitor trend, continue current BP regimen and titrate to clinical response (3) CKD (chronic kidney disease), stage III Status: Chronic Comment: Avoid nephrotoxic meds and limit contrast exposure, serial monitoring (4) Hypothyroidism Code(s): E03.9 - HYPOTHYROIDISM, UNSPECIFIED Status: Chronic Qualifiers: Hypothyroidism type: acquired Qualified Code(s): E03.9 - Hypothyroidism, unspecified Comment: Continue Levothyroxine 75mcg po daily (5) Physical deconditioning Code(s): R53.81 - OTHER MALAISE Status: Chronic Comment: PT for mobilization , CM for Swing bed options - Plan 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
[2017-12-16] MEDS: Atorvastatin Calcium 40 MG TAB PO SCH (21:11)
[2017-12-16] MEDS: rOPINIRole HCl 1 MG TAB PO SCH (21:14)
[2017-12-16] MEDS: HumaLOG 300 UNITS/3 ML VIAL SC PRN (21:20)
[2017-12-17 08:22] VITALS: TEMP 97.2
[2017-12-17] MEDS: Aspirin 325 MG TAB PO SCH (10:15)
[2017-12-17] MEDS: Gabapentin 100 MG CAP PO SCH (10:16)
[2017-12-17] MEDS: Multivitamin W/ Minerals 1 TAB PO SCH (10:22)
[2017-12-17] MEDS: Levothyroxine Sodium 75 MCG TAB PO SCH (10:22)
[2017-12-17] MEDS: hydrALAZINE 25 MG TAB PO SCH (10:25)
[2017-12-17] MEDS: Lisinopril 20 MG TAB PO SCH (10:25)
[2017-12-17] MEDS: Heparin 5,000 UNITS/ML VIAL SC SCH (10:29)
[2017-12-17] MEDS: Insulin Glargine 25 UNITS in Pre-Filled Syringe 1 EACH SC SCH (10:30)
[2017-12-17] MEDS ORDERED: Ondansetron ODT 4 MG TAB PO SCH (11:00)
--- NOTE | 2017-12-17 12:18 | DIS ---
DATE OF ADMISSION: 12/11/2017 DATE OF DISCHARGE: 12/17/2017 DISCHARGE DIAGNOSES: 1. Dizziness, multifactorial. 2. Hypertension, stable. 3. Chronic kidney disease stage 3. 4. Hypothyroidism, stable. 5. Physical deconditioning. 6. Diabetes mellitus type 2, insulin requiring. CONSULTATIONS: None. PERTINENT LABORATORY AND X-RAY FINDINGS: Troponin I ranged between 0.010-0.033 , TSH 1.64. Serum beta hCG negative on 12/12/2017. CBC showed a hemoglobin of 10, hematocrit 30. CT angiogram of the head and neck dated 12/12/2017, showed atherosclerotic changes without acute process. Cardiolite stress test dated , showed normal myocardial perfusion scan. Ejection fraction calculated at 68%. CT of the brain without contrast dated 12/12/2017, showed chronic changes without acute process. MRI of the brain dated 12/13/2017, showed no acute intracranial process. A 2D transthoracic echocardiogram dated 12/13/2017 , showed ejection fraction of 45%-50% with probable diastolic dysfunction. Mild to moderate left atrial enlargement. HOSPITAL COURSE: The patient was initially admitted after presenting with generalized weakness, dizziness, and lightheadedness. The patient underwent extensive evaluation including multiple neuro imaging studies as well as cardiac evaluation all with negative findings. The patient was noted with generalized deconditioning and evaluated by physical therapy services. The patient was minimally ambulatory at the initial presentation and ambulating up to 150 feet with rolling walker and standby assistance. Dizziness, likely multifactorial with associated generalized deconditioning. Telemetry monitoring showed no evidence of acute arrhythmia or dysrhythmia, and the patient overall remained clinically stable. The patient tolerated regular oral intake, voided appropriately with stable vital signs. I have examined the patient at discharge and discussed followup instructions. The patient overall clinically stable and ready for discharge to [facility] on 2017. DISCHARGE MEDICATIONS: 1. Lipitor 40 mg p.o. at bedtime. 2. Diazepam 2 mg p.o. daily p.r.n. 3. Hydralazine 25 mg p.o. b.i.d. 4. Lispro 100 units subcutaneously t.i.d. with meals. 5. Levemir FlexPen 25 units subcutaneously b.i.d. 6. Levothyroxine 75 mcg p.o. daily. 7. Toprol-XL 25 mg p.o. b.i.d. 8. Multivitamin 1 tab p.o. daily. 9. Nitroglycerin 0.4 mg sublingually p.r.n. chest pain. 10. Protonix 40 mg p.o. b.i.d. 11. Ranexa 500 mg p.o. b.i.d. 12. Requip 1 mg p.o. at bedtime. 13. Sertraline 200 mg p.o. q.a.m. 14. Aspirin 325 mg p.o. daily. 15. Lasix 40 mg p.o. b.i.d. 16. Neurontin 100 mg p.o. t.i.d. 17. Lisinopril 20 mg p.o. b.i.d. FOLLOWUP: The patient will follow up with Dr. Hero Hurtado after discharge from [facility]. The patient will follow up with Dr. Ahn while admitted to [facility]. CONDITION ON DISCHARGE: Stable. ACTIVITY: ad lola. Rolling walker with standby assistance. DIET: ADA and heart healthy. CODE STATUS: FULL. DISPOSITION: To [facility] on 12/17/2017. MTDD
[2017-12-17 14:54] VITALS: BP 148/67
== END 2017-12-17 12:26 | disposition swing bed (61) ==
LOC: EEVIPCON 16:33 → ERS 16:33 → 2SW 21:23 → 2SE 12-12 21:56 → 2SW 12-13 18:36
PROVIDERS: ADMIT Internal Medicine; ATTEND Internal Medicine
DX: R42 Dizziness and giddiness (principal); I12.9 Hypertensive chronic kidney disease with stage 1 through stage 4 chronic kidney disease, or unspecified chronic kidney disease; E11.22 Type 2 diabetes mellitus with diabetic chronic kidney disease; N18.3 Chronic kidney disease, stage 3 (moderate); E03.9 Hypothyroidism, unspecified; E66.9 Obesity, unspecified; E11.65 Type 2 diabetes mellitus with hyperglycemia; Z79.82 Long term (current) use of aspirin; Z79.4 Long term (current) use of insulin; Z79.899 Other long term (current) drug therapy; Z88.8 Allergy status to other drugs, medicaments and biological substances
CPT/HCPCS: 70450; 70496; 70498; 70551; 78452; 80048; 82550; 82553 ×2; 82962 ×7; 84443; 84484 ×3; 84703; 85025; 85610; 85730; 93005 ×2; 93017; 93306; 94760; 97116 ×3; 97139 ×4; 97530 ×2; 99285; A9500; G0378 ×3; G8978; G8979; G8987; G8988; 36415; 36416; 93010; J0153; J1644; Q0162

== ENCOUNTER 2018-04-08 09:06 | Outpatient (CLI) | payer MEDICARE ==
--- NOTE | 2018-04-08 10:21 | ULT ---
RENAL ULTRASOUND: History: Chronic kidney disease. Technique: Multiplanar grayscale and color doppler images were obtained in a renal ultrasound. FINDINGS: The kidneys are normal in echogenicity without hydronephrosis or calculi and measure 11.2 and 10.9 cm in length on the right and left, respectively. Limited visualization of the urinary bladder is unrem arkable. IMPRESSION: Unremarkable exam. POS: C
== END 2018-04-08 09:07 | disposition home or self-care (01) ==
LOC: SCSULT 09:06
PROVIDERS: ATTEND Internal Medicine Nephrology
DX: N18.3 Chronic kidney disease, stage 3 (moderate) (principal)
CPT/HCPCS: 76770

== ENCOUNTER 2018-08-12 08:46 | Outpatient (CLI) | payer MEDICARE ==
--- NOTE | 2018-08-12 09:47 | MMO ---
Bilateral MAMMO Bilat Screen DDI+ANNIKA. CLINICAL HISTORY: Patient is 67 years old and is seen for screening. The patient has the following family history of breast cancer: mother, at age 53. The patient has no personal history of cancer. VIEWS: The views performed were: bilateral craniocaudal with tomosynthesis and bilateral mediolateral oblique with tomosynthesis. FILMS COMPARED: The present examination has been compared to prior imaging studies performed at [facility] on 07/10/2011, 10/21/2014 and 11/02/2015, and at [facility] on 10/06/2013. MAMMOGRAM FINDINGS: There are scattered fibroglandular densities. There are benign appearing calcifications seen in both breasts. There are no suspicious masses, suspicious calcifications, or new areas of architectural distortion. IMPRESSION: THERE IS NO MAMMOGRAPHIC EVIDENCE OF MALIGNANCY. A ROUTINE FOLLOW-UP MAMMOGRAM IN 1 YEAR IS RECOMMENDED. THE RESULTS OF THIS EXAM WERE SENT TO THE PATIENT. ACR BI-RADS Category 2 - Benign finding MAMMOGRAPHY NOTE: 1. A negative mammogram report should not delay a biopsy if a dominant of clinically suspicious mass is present. 2. Approximately 10% to 15% of breast cancers are not detected by mammography. 3. Adenosis and dense breasts may obscure an underlying neoplasm.
== END 2018-08-12 08:47 | disposition home or self-care (01) ==
LOC: BICMAMMO 08:46
PROVIDERS: ATTEND Family Medicine
DX: Z12.31 Encounter for screening mammogram for malignant neoplasm of breast (principal); Z80.3 Family history of malignant neoplasm of breast
CPT/HCPCS: 77063; 77067

== ENCOUNTER 2019-04-09 08:54 | Outpatient (CLI) | payer MEDICARE ==
--- NOTE | 2019-04-09 10:21 | ULT ---
RIGHT BREAST ULTRASOUND: HISTORY: Palpable mass at the 10 o'clock position of the right breast and right axillary pain. FINDINGS: Correlation is made with mammogram of the same day. Sonographic evaluation of the region of palpable concern at the 10 o'clock position of right breast d emonstrates no abnormality. Sonographic evaluation of the axillae demonstrates a 6 mm hypoechoic non shadowing nodule with echogenic hilum containing vascularity, consistent with a lymph node. IMPRESSION: BIRADS category 2 - benign findings. Return to annual mammographic screening. POS: LOU
--- NOTE | 2019-04-09 12:42 | MMO ---
Right Breast MAMMO Unilat Diag DDI RT+ANNIKA. CLINICAL HISTORY: Patient is 68 years old and is seen for diagnostic exam,lump or thickening in the upper-outer region of the right breast and pain in the right axilla. The patient has the following family history of breast cancer: mother, at age 53. The patient has no personal history of cancer. VIEWS: The views performed were: right craniocaudal with tomosynthesis; right mediolateral oblique with tomosynthesis; right mediolateral with tomosynthesis; and right exaggerated craniocaudal. FILMS COMPARED: The present examination has been compared to prior imaging studies performed at [facility] on 11/02/2015, 08/12/2018 and 04/09/2019. This study has been interpreted with the assistance of computer-aided detection. MAMMOGRAM FINDINGS: There are scattered fibroglandular densities. There are benign appearing calcifications in the right breast. US of site of palpable concern shows no abnormality. There are no suspicious masses, suspicious calcifications, or new areas of architectural distortion. IMPRESSION: THERE IS NO MAMMOGRAPHIC EVIDENCE OF MALIGNANCY. A ROUTINE FOLLOW-UP MAMMOGRAM IN 1 YEAR IS RECOMMENDED. THE RESULTS OF THIS EXAM WERE SENT TO THE PATIENT. ACR BI-RADS Category 2 - Benign finding MAMMOGRAPHY NOTE: 1. A negative mammogram report should not delay a biopsy if a dominant of clinically suspicious mass is present. 2. Approximately 10% to 15% of breast cancers are not detected by mammography. 3. Adenosis and dense breasts may obscure an underlying neoplasm. Reported by: ERICA NI MD Electonically Signed: [id number]
== END 2019-04-09 08:55 | disposition home or self-care (01) ==
LOC: BICMAMMO 08:54
PROVIDERS: ATTEND Family Medicine
DX: N63.13 Unspecified lump in the right breast, lower outer quadrant (principal)
CPT/HCPCS: 76642; 77065; G0279

== ENCOUNTER 2020-06-30 10:01 | Outpatient (CLI) | payer MEDICARE | END 2020-06-30 10:02 | disposition home or self-care (01) | LOC: BICMAMMO 10:01 | PROVIDERS: ATTEND Family Medicine | DX: Z12.31 Encounter for screening mammogram for malignant neoplasm of breast (principal); Z80.3 Family history of malignant neoplasm of breast | CPT/HCPCS: 77063; 77067 ==

== ENCOUNTER 2020-07-26 12:02 | Outpatient (CLI) | payer MEDICARE | END 2020-07-26 12:03 | disposition home or self-care (01) | LOC: BICMRI 12:02 | PROVIDERS: ATTEND Nurse Practitioner Acute Care | DX: R51.9 Headache, unspecified (principal); I65.21 Occlusion and stenosis of right carotid artery; I67.82 Cerebral ischemia; R90.89 Other abnormal findings on diagnostic imaging of central nervous system | CPT/HCPCS: 70544; 70551; 82565 ==

== ENCOUNTER 2021-01-12 15:32 | Outpatient (CLI) | payer MEDICARE | END 2021-01-12 15:33 | disposition home or self-care (01) | LOC: BICRAD 15:32 | PROVIDERS: ATTEND Internal Medicine Gastroenterology | DX: D64.9 Anemia, unspecified (principal) | CPT/HCPCS: 71046; 74018 ==

== ENCOUNTER 2021-03-07 14:34 | Outpatient (CLI) | payer MEDICARE | END 2021-03-07 14:35 | disposition home or self-care (01) | LOC: BICRAD 14:34 | PROVIDERS: ATTEND Internal Medicine Gastroenterology | DX: D64.9 Anemia, unspecified (principal); R14.0 Abdominal distension (gaseous) | CPT/HCPCS: 74018 ==

== ENCOUNTER 2021-03-31 18:44 | Inpatient (IN) | payer MEDICARE ==
[2021-03-31 19:27] LABS: #Basophils 0.1 thou/uL (0.0-0.2); #Eosinphils 0.1 thou/uL (0.0-0.7); #Lymphocytes 2.1 thou/uL (1.20-3.40); #Monocytes 0.6 thou/uL (0.11-0.59); #Neutrophils 6.2 thou/uL (1.40-6.50); %Basophils 1.1 % (0.0-1.0); %Eosinophils 1.6 % (0.0-10.0); %Monocytes 6.5 % (0.0-10.0); %Neutrophils 67.9 % (42.0-75.0); Hemoglobin 12.4 g/dL (12.0-16.0); Mean Corpuscular HGB CONC 33.7 g/dL (32.0-36.0); Mean Corpuscular Hemoglobin 30.5 pg (27.0-31.0); Mean Corpuscular Volume 90.5 fL (78.0-98.0); Mean Platelet Volume 8.4 fL (7.4-10.4); Platelet Count 179 thou/uL (130-400); Red Blood Cell (RBC) Count 4.05 mill/uL (4.20-5.40); White Blood Cell (WBC) Count 9.2 thou/uL (4.8-10.8)
[2021-03-31 19:51] LABS: ALT (SGPT) 11 U/L (8-55); AST (SGOT) 15 U/L (5-34); Alkaline Phosphatase 82 U/L (40-110); Anion Gap 13 mmol/L (10-20); BUN (Urea Nitrogen) 47 mg/dL (9.8-20.1); Bilirubin, Total 0.4 mg/dL (0.2-1.2); CK (CPK) 57 U/L (29-168); Calc. Creatinine Clearance 0 mL/min (70-130); Carbon Dioxide 27 mmol/L (23-31); Chloride 103 mmol/L (98-107); Globulin 3.6 g/dL (2.4-3.5); Potassium 3.9 mmol/L (3.5-5.1); Protein, Total 7.6 g/dL (5.8-8.1); Sodium 139 mmol/L (136-145)
[2021-03-31 19:59] LABS: Glucose 59 mg/dL (80-115)
[2021-03-31] MEDS ORDERED: Acetaminophen 325 MG TAB PO PRN (23:00)
[2021-03-31] MEDS ORDERED: Ondansetron PF 4 MG/2 ML Vial IVP PRN (23:00)
[2021-03-31] MEDS ORDERED: Aspirin 325 MG TAB PO SCH (23:00)
[2021-03-31] MEDS ORDERED: Ondansetron ODT 4 MG TAB SL PRN (23:00)
[2021-03-31 23:41] LABS: Troponin I 0.023 ng/mL (< 0.028)
[2021-04-01] MEDS ORDERED: Dextrose 50% Abboject 50 ML SYRINGE SLOW IVP PRN ×2 (00:07→02:38)
[2021-04-01] MEDS ORDERED: Acetaminophen 650 MG Suppository PR PRN (00:07)
[2021-04-01] MEDS ORDERED: Dextrose 5% in Water 1,000 ML IV PRN ×2 (00:07→02:38)
[2021-04-01] MEDS ORDERED: hydrALAZINE 20 MG/ML VIAL SLOW IVP PRN (00:11)
[2021-04-01] MEDS ORDERED: Aspirin 325 MG TAB ONE (00:19)
[2021-04-01 01:38] VITALS: BMI 29.7
[2021-04-01 02:37] LABS: Troponin I 0.017 ng/mL (< 0.028)
[2021-04-01] MEDS ORDERED: HumaLOG 300 UNITS/3 ML VIAL SC PRN (02:38)
[2021-04-01] MEDS: HumaLOG 300 UNITS/3 ML VIAL SC PRN ×2 (04:20→16:47)
[2021-04-01 05:02] LABS: #Eosinphils 0.1 thou/uL (0.0-0.7); #Monocytes 0.5 thou/uL (0.11-0.59); #Neutrophils 3.6 thou/uL (1.40-6.50); %Basophils 0.6 % (0.0-1.0); %Eosinophils 2.2 % (0.0-10.0); %Monocytes 7.6 % (0.0-10.0); %Neutrophils 57.6 % (42.0-75.0); Hemoglobin 10.6 g/dL (12.0-16.0); Mean Corpuscular HGB CONC 33.8 g/dL (32.0-36.0); Mean Corpuscular Hemoglobin 30.5 pg (27.0-31.0); Mean Corpuscular Volume 90.4 fL (78.0-98.0); Mean Platelet Volume 9.2 fL (7.4-10.4); Platelet Count 139 thou/uL (130-400); Red Blood Cell (RBC) Count 3.48 mill/uL (4.20-5.40); White Blood Cell (WBC) Count 6.2 thou/uL (4.8-10.8)
[2021-04-01 05:15] LABS: Anion Gap 13 mmol/L (10-20); BUN (Urea Nitrogen) 48 mg/dL (9.8-20.1); Calc. Creatinine Clearance 32 mL/min (70-130); Calcium 8.9 mg/dL (7.8-10.44); Carbon Dioxide 24 mmol/L (23-31); Cardiac Risk 3.9 (Less than 4.5); Chloride 103 mmol/L (98-107); Cholesterol 183 mg/dl (< 200 Desired); Glucose 481 mg/dL (80-115); HDL Cholesterol 47 mg/dL (>60 Neg Risk); LDL Cholesterol, Calculated 86 mg/dL; Potassium 4.4 mmol/L (3.5-5.1); Sodium 136 mmol/L (136-145); Triglycerides 248 mg/dL (Less than 150)
[2021-04-01] MEDS: Amlodipine 5 MG TAB PO SCH (09:31)
[2021-04-01] MEDS: hydrALAZINE 25 MG TAB PO SCH ×3 (09:31→21:26)
[2021-04-01] MEDS: Heparin 5,000 UNITS/ML VIAL SC SCH ×3 (09:32→21:26)
[2021-04-01] MEDS: Atorvastatin Calcium 40 MG TAB PO SCH (09:32)
[2021-04-01] MEDS: Lantus 1000 UNITS/10 ML VIAL SC SCH ×2 (09:33→21:27)
[2021-04-01 17:57] LABS: SARS-CoV-2 PCR by NAA Not Detected (NotDetected)
[2021-04-01] MEDS: Sodium Chloride 0.9% 1,000 ML IV SCH (18:39)
[2021-04-01] MEDS: Melatonin 3 MG TAB PO SCH (21:27)
[2021-04-01 22:12] LABS: Bacteria/HPF None Seen HPF (None Seen); Bilirubin Negative (Negative); Blood, Urine Negative (Negative); Clarity Turbid (Clear); Glucose, Urine (Dipstick) 500 mg/dL (Negative); Ketone, Urine Negative (Negative); Leukocyte 250 Leu/uL (Negative); Nitrite Negative (Negative); Protein, Urine (Dipstick) 100 mg/dL (Neg-Trace); RBC/HPF 0-3 HPF (0-3); Specific Gravity, Urine 1.016 (1.002-1.036); Squamous Epithelial None Seen HPF (0-3); Urobilinogen Normal mg/dL (Less than 2); pH, Urine 5.5 (5.0-9.0)
[2021-04-01 22:15] LABS: Urine Culture Reflex Yes Yes
[2021-04-01 22:39] LABS: Sodium, Urine 56 mmol/L (Not Available); Urea Nitrogen, Random Urine 438 mg/dl
[2021-04-02] MEDS ORDERED: Ondansetron PF 4 MG/2 ML Vial IVP PRN (01:51)
[2021-04-02] MEDS ORDERED: hydrOXYzine 25 MG TAB PO SCH (01:52)
[2021-04-02] MEDS: Sodium Chloride 0.9% 1,000 ML IV SCH ×2 (04:48→14:56)
[2021-04-02 05:10] LABS: #Basophils 0.1 thou/uL (0.0-0.2); #Eosinphils 0.2 thou/uL (0.0-0.7); #Lymphocytes 2.6 thou/uL (1.20-3.40); #Monocytes 0.5 thou/uL (0.11-0.59); #Neutrophils 2.8 thou/uL (1.40-6.50); %Basophils 1.1 % (0.0-1.0); %Eosinophils 3.2 % (0.0-10.0); %Lymphocytes 42.1 % (21.0-51.0); %Monocytes 8.1 % (0.0-10.0); %Neutrophils 45.5 % (42.0-75.0); Hemoglobin 10.3 g/dL (12.0-16.0); Mean Corpuscular HGB CONC 33.4 g/dL (32.0-36.0); Mean Corpuscular Hemoglobin 30.8 pg (27.0-31.0); Mean Platelet Volume 8.8 fL (7.4-10.4); Platelet Count 134 thou/uL (130-400); Red Blood Cell (RBC) Count 3.34 mill/uL (4.20-5.40); White Blood Cell (WBC) Count 6.1 thou/uL (4.8-10.8)
[2021-04-02 05:16] LABS: Hemoglobin A1c 9.9 % (4.0-6.0)
[2021-04-02 05:32] LABS: Anion Gap 11 mmol/L (10-20); BUN (Urea Nitrogen) 45 mg/dL (9.8-20.1); Calc. Creatinine Clearance 46 mL/min (70-130); Calcium 8.3 mg/dL (7.8-10.44); Carbon Dioxide 24 mmol/L (23-31); Chloride 105 mmol/L (98-107); Glucose 133 mg/dL (80-115); Magnesium 1.7 mg/dL (1.6-2.6); Phosphorus 3.8 mg/dL (2.3-4.7); Potassium 4.1 mmol/L (3.5-5.1); Sodium 136 mmol/L (136-145)
[2021-04-02 05:59] LABS: Thyroid Stimulating Hormone 0.7696 uIU/mL (0.35-4.94)
[2021-04-02 06:01] LABS: Vitamin B12 Greater than 2000 pg/mL (211-911)
[2021-04-02] MEDS: Levothyroxine Sodium 75 MCG TAB PO SCH (06:15)
[2021-04-02] MEDS: Lantus 1000 UNITS/10 ML VIAL SC SCH ×2 (09:28→22:25)
[2021-04-02] MEDS: hydrALAZINE 25 MG TAB PO SCH ×3 (09:29→22:25)
[2021-04-02] MEDS: Heparin 5,000 UNITS/ML VIAL SC SCH ×3 (09:29→22:25)
[2021-04-02] MEDS: Atorvastatin Calcium 40 MG TAB PO SCH (09:29)
[2021-04-02] MEDS: Amlodipine 5 MG TAB PO SCH (09:30)
[2021-04-02] MEDS ORDERED: ALPRAZolam 0.25 MG TAB PO PRN (11:43)
[2021-04-02] MEDS ORDERED: Meclizine HCl 25 MG TAB PO PRN (11:43)
[2021-04-02] MEDS ORDERED: Cyclobenzaprine 10 MG TAB PO PRN (11:43)
[2021-04-02] MEDS: Acetaminophen 500 MG TAB PO PRN (12:03)
[2021-04-02] MEDS: HumaLOG 300 UNITS/3 ML VIAL SC PRN ×2 (12:04→17:25)
[2021-04-02] MEDS: Gabapentin 100 MG CAP PO SCH ×2 (14:56→22:24)
[2021-04-02] MEDS: Melatonin 3 MG TAB PO SCH (22:26)
[2021-04-02] MEDS: Rosuvastatin 20 MG TAB PO SCH (22:26)
[2021-04-03 04:59] LABS: #Basophils 0.1 thou/uL (0.0-0.2); #Eosinphils 0.3 thou/uL (0.0-0.7); #Lymphocytes 2.5 thou/uL (1.20-3.40); #Monocytes 0.5 thou/uL (0.11-0.59); #Neutrophils 2.2 thou/uL (1.40-6.50); %Basophils 1.3 % (0.0-1.0); %Eosinophils 5.2 % (0.0-10.0); %Lymphocytes 44.5 % (21.0-51.0); %Monocytes 9.5 % (0.0-10.0); %Neutrophils 39.5 % (42.0-75.0); Hemoglobin 10.4 g/dL (12.0-16.0); Mean Corpuscular HGB CONC 33.3 g/dL (32.0-36.0); Mean Corpuscular Hemoglobin 30.7 pg (27.0-31.0); Mean Corpuscular Volume 92.3 fL (78.0-98.0); Mean Platelet Volume 8.7 fL (7.4-10.4); Platelet Count 131 thou/uL (130-400); RBC Distribution Width 12.8 % (11.5-14.5); Red Blood Cell (RBC) Count 3.38 mill/uL (4.20-5.40); White Blood Cell (WBC) Count 5.5 thou/uL (4.8-10.8)
[2021-04-03 05:31] LABS: Anion Gap 8 mmol/L (10-20); BUN (Urea Nitrogen) 40 mg/dL (9.8-20.1); Calc. Creatinine Clearance 46 mL/min (70-130); Calcium 8.6 mg/dL (7.8-10.44); Carbon Dioxide 25 mmol/L (23-31); Chloride 108 mmol/L (98-107); Glucose 130 mg/dL (80-115); Magnesium 1.7 mg/dL (1.6-2.6); Phosphorus 3.5 mg/dL (2.3-4.7); Potassium 4.1 mmol/L (3.5-5.1); Sodium 137 mmol/L (136-145)
[2021-04-03] MEDS: Levothyroxine Sodium 75 MCG TAB PO SCH (06:08)
[2021-04-03] MEDS ORDERED: Non-Formulary Item 1 EACH (Mecobalamin [B12 Active] 1,000 MCG Tab.Chew) PO SCH (09:00)
[2021-04-03] MEDS: Ascorbic Acid 500 mg Chewable Tablet PO SCH (09:35)
[2021-04-03] MEDS: Amlodipine 5 MG TAB PO SCH (09:35)
[2021-04-03] MEDS: Ferrous Sulfate 325 MG TAB PO SCH (09:37)
[2021-04-03] MEDS: Folic Acid 1 MG TAB PO SCH (09:37)
[2021-04-03] MEDS: Multivitamin W/ Minerals 1 TAB PO SCH (09:37)
[2021-04-03] MEDS: Atorvastatin Calcium 40 MG TAB PO SCH (09:37)
[2021-04-03] MEDS: Gabapentin 100 MG CAP PO SCH ×3 (09:38→21:34)
[2021-04-03] MEDS: Magnesium Oxide 400 MG TAB PO SCH (09:38)
[2021-04-03] MEDS: hydrALAZINE 25 MG TAB PO SCH ×3 (09:39→21:32)
[2021-04-03] MEDS: Heparin 5,000 UNITS/ML VIAL SC SCH ×3 (09:40→21:32)
[2021-04-03] MEDS: Lantus 1000 UNITS/10 ML VIAL SC SCH ×2 (09:41→21:35)
[2021-04-03 11:13] LABS: Syphilis Antibody Nonreactive (Nonreactive); Syphilis Antibody Index 0.12 S/CO (<1.00 Non-Reactive)
[2021-04-03] MEDS: HumaLOG 300 UNITS/3 ML VIAL SC PRN (11:46)
[2021-04-03] MEDS ORDERED: Aspirin 81 mg Enteric Coated Tablet PO SCH (12:15)
[2021-04-03] MEDS: Rosuvastatin 20 MG TAB PO SCH (21:33)
[2021-04-03] MEDS: Melatonin 3 MG TAB PO SCH (21:33)
[2021-04-03] MEDS: Acetaminophen 500 MG TAB PO PRN (21:49)
[2021-04-04] MEDS: Levothyroxine Sodium 75 MCG TAB PO SCH (05:33)
[2021-04-04] MEDS ORDERED: FLU VACC QS2021-22(65YR UP)/PF 240 MCG/0.7 ML SYRINGE IM ONE (09:00)
[2021-04-04] MEDS ORDERED: Furosemide 40 MG TAB PO SCH (09:00)
[2021-04-04] MEDS ORDERED: Aspirin 81 mg Enteric Coated Tablet PO SCH (09:00)
[2021-04-04] MEDS ORDERED: Lisinopril 5 MG TAB PO SCH (09:00)
[2021-04-04] MEDS: Gabapentin 100 MG CAP PO SCH ×2 (09:37→16:03)
[2021-04-04] MEDS: hydrALAZINE 25 MG TAB PO SCH ×2 (09:39→16:03)
[2021-04-04] MEDS: Magnesium Oxide 400 MG TAB PO SCH (09:40)
[2021-04-04] MEDS: Folic Acid 1 MG TAB PO SCH (09:40)
[2021-04-04] MEDS: Amlodipine 5 MG TAB PO SCH (09:40)
[2021-04-04] MEDS: Ascorbic Acid 500 mg Chewable Tablet PO SCH (09:41)
[2021-04-04] MEDS: Multivitamin W/ Minerals 1 TAB PO SCH (09:41)
[2021-04-04] MEDS: Heparin 5,000 UNITS/ML VIAL SC SCH ×2 (09:41→16:04)
[2021-04-04] MEDS: Ferrous Sulfate 325 MG TAB PO SCH (09:42)
[2021-04-04] MEDS: Lantus 1000 UNITS/10 ML VIAL SC SCH (09:43)
[2021-04-04] MEDS: HumaLOG 300 UNITS/3 ML VIAL SC PRN (13:12)
[2021-04-04 15:57] VITALS: BP 155/71; TEMP 97.6
== END 2021-04-04 16:24 | disposition short-term general hospital (02) | DRG 149 ==
LOC: ERS 18:44 → 2NO 22:51 → OBSVTOIN 04-02 12:13
PROVIDERS: ADMIT Student in an Organized Health Care Education/Training Program; ATTEND Family Medicine
DX: H81.10 Benign paroxysmal vertigo, unspecified ear (principal); I50.22 Chronic systolic (congestive) heart failure; N17.9 Acute kidney failure, unspecified; I13.0 Hypertensive heart and chronic kidney disease with heart failure and stage 1 through stage 4 chronic kidney disease, or unspecified chronic kidney disease; Z20.822 Contact with and (suspected) exposure to COVID-19; K21.9 Gastro-esophageal reflux disease without esophagitis; E78.5 Hyperlipidemia, unspecified; R29.6 Repeated falls; Z60.2 Problems related to living alone; R00.1 Bradycardia, unspecified; N18.9 Chronic kidney disease, unspecified; E11.22 Type 2 diabetes mellitus with diabetic chronic kidney disease; F41.9 Anxiety disorder, unspecified; E89.0 Postprocedural hypothyroidism; E11.649 Type 2 diabetes mellitus with hypoglycemia without coma; I08.1 Rheumatic disorders of both mitral and tricuspid valves; E66.9 Obesity, unspecified; Z68.32 Body mass index [BMI] 32.0-32.9, adult; Z28.21 Immunization not carried out because of patient refusal; Z91.81 History of falling; Z86.73 Personal history of transient ischemic attack (TIA), and cerebral infarction without residual deficits; Z88.8 Allergy status to other drugs, medicaments and biological substances; Z79.899 Other long term (current) drug therapy; Z79.890 Hormone replacement therapy; Z79.82 Long term (current) use of aspirin; Z79.4 Long term (current) use of insulin; Z90.49 Acquired absence of other specified parts of digestive tract; Z90.710 Acquired absence of both cervix and uterus
CPT/HCPCS: 36415; 36416; 70450; 70551; 71045; 76770; 80048; 80053; 80061; 81001; 82550; 82607; 82746; 83036; 83605; 83735; 83880; 83935; 84100; 84300; 84443; 84484; 84540; 84560; 85025; 86780; 87086; 93005; 93306; 93880; 96372; 96374; G0378; J1644; J1815; J2405; J7050; U0003; U0005

== ENCOUNTER 2021-07-18 16:30 | Outpatient (CLI) | payer MEDICARE | END 2021-07-18 16:31 | disposition home or self-care (01) | LOC: SLEEPLAB 16:30 | PROVIDERS: ATTEND Family Medicine | DX: G47.33 Obstructive sleep apnea (adult) (pediatric) (principal); R06.83 Snoring; F32.9 Major depressive disorder, single episode, unspecified; F41.9 Anxiety disorder, unspecified; K21.9 Gastro-esophageal reflux disease without esophagitis; G47.00 Insomnia, unspecified; G47.31 Primary central sleep apnea | CPT/HCPCS: 95800 ==

== ENCOUNTER 2021-09-28 07:52 | Outpatient (CLI) | payer MEDICARE | END 2021-09-28 07:53 | disposition home or self-care (01) | LOC: NM 07:52 | PROVIDERS: ATTEND Physician Assistant Medical | DX: K21.9 Gastro-esophageal reflux disease without esophagitis (principal); R11.2 Nausea with vomiting, unspecified; E11.9 Type 2 diabetes mellitus without complications; D64.9 Anemia, unspecified; K30 Functional dyspepsia | CPT/HCPCS: 78264; A9541 ==

== ENCOUNTER 2021-11-02 09:45 | Inpatient (IN) | payer MEDICARE ==
[2021-11-06 12:01] LABS: Hemoglobin 8.6 g/dL (12.0-15.5); Mean Corpuscular HGB CONC 32.3 g/dL (32.0-36.0); Mean Corpuscular Hemoglobin 29.7 pg (27.0-33.0); Mean Corpuscular Volume 91.7 fl (81.6-98.3); Mean Platelet Volume 10.5 fl (7.4-10.4); Platelet Count 134 10x3/uL (150-450); RBC Distribution Width 13.3 % (11.5-14.5); White Blood Cell (WBC) Count 6.7 10x3/uL (3.5-10.5)
[2021-11-06 12:16] LABS: Anion Gap 14 mmol/L (10-20); BUN (Urea Nitrogen) 47 mg/dL (9.8-20.1); Calc. Creatinine Clearance 0 mL/min (70-130); Calcium 8.9 mg/dL (7.8-10.44); Carbon Dioxide 25 mmol/L (23-31); Chloride 108 mmol/L (98-107); Estimated GFR 31; Glucose 148 mg/dL (80-115); Potassium 4.7 mmol/L (3.5-5.1); Sodium 142 mmol/L (136-145)
[2021-11-08] MEDS ORDERED: fentaNYL Citrate/PF 100 MCG/2 ML SYRINGE ONE (06:23)
[2021-11-08] MEDS ORDERED: Rocuronium Bromide 50 MG/5 ML VIAL ONE ×2 (06:24→09:20)
[2021-11-08] MEDS ORDERED: niCARdipine 25 MG/10 ML VIAL ONE (06:24)
[2021-11-08] MEDS ORDERED: Dexmedetomidine 200 MCG/2 ML VIAL ONE (06:24)
[2021-11-08] MEDS ORDERED: Insulin Regular 300 UNITS/3 ML VIAL ONE (06:24)
[2021-11-08] MEDS ORDERED: Midazolam HCl 5 mg/5 ml Vial ONE (06:24)
[2021-11-08] MEDS ORDERED: Albumin 5% 500 ML ONE (06:35)
[2021-11-08] MEDS ORDERED: PHENYLEPHRINE-NS 100 MCG/ML 10 ML SYRINGE ONE (06:35)
[2021-11-08] MEDS ORDERED: Heparin 10,000 UNITS/1 ML VIAL 30,000 UNITS in Sodium Chloride 0.9% 1,000 ML FS SCH (07:00)
[2021-11-08] MEDS ORDERED: Protamine Sulfate 250 MG/25 ML VIAL ONE (07:39)
[2021-11-08] MEDS ORDERED: Thrombin 5000 UNITS/5 ML VIAL ONE (07:39)
[2021-11-08] MEDS ORDERED: Lidocaine 2% PF 100 mg/5 ml Syringe ONE (07:39)
[2021-11-08] MEDS ORDERED: Calcium Chloride 1 GM/10 ML Abboject SYRINGE ONE (07:39)
[2021-11-08] MEDS ORDERED: Lidocaine 1% MPF 2 ML VIAL ONE (07:39)
[2021-11-08] MEDS ORDERED: PROPOFOL 200 MG/20 ML VIAL ONE (07:39)
[2021-11-08] MEDS ORDERED: Papaverine 60 MG/2 ML VIAL ONE (07:39)
[2021-11-08] MEDS ORDERED: Sodium Bicarb 50 MEQ/50 ML Abboject 8.4% SYRINGE ONE (07:39)
[2021-11-08] MEDS ORDERED: Magnesium Sulfate 1 GM/2 ML VIAL ONE (07:39)
[2021-11-08] MEDS ORDERED: Heparin 5,000 UNITS/ML VIAL ONE (07:39)
[2021-11-08] MEDS ORDERED: Heparin 30,000 units/30 ml VIAL ONE (07:39)
[2021-11-08] MEDS ORDERED: Rocuronium Bromide 10 MG/ML (10ML VIAL) ONE (07:39)
[2021-11-08] MEDS ORDERED: Aminocaproic Acid 5 GM/20 ML VIAL ONE (07:39)
[2021-11-08] MEDS ORDERED: Norepinephrine 4 MG/4 ML VIAL ONE (07:39)
[2021-11-08] MEDS ORDERED: Mannitol 12.5 GM/50 ML ONE (07:39)
[2021-11-08] MEDS ORDERED: Cardioplegic Soln 1,000 ML BAG ONE (07:39)
[2021-11-08] MEDS ORDERED: Nitroglycerin 50 MG/250 ML BOT 250 ML IVPB PRN (11:28)
[2021-11-08] MEDS ORDERED: Bisacodyl 5 MG TAB PO PRN (11:28)
[2021-11-08] MEDS ORDERED: NOREPINEPHRINE 8 MG/250 ML-D5W 250 ML IVPB PRN (11:28)
[2021-11-08] MEDS ORDERED: niCARdipine 25 MG in Sodium Chloride 0.9% 250 ML 250 ML IVPB PRN (11:28)
[2021-11-08] MEDS ORDERED: Hetastarch 6% 500 ML 500 ML IVPB PRN (11:28)
[2021-11-08] MEDS ORDERED: Post-Op Insulin Drip Protocol IVPB ONE (11:28)
[2021-11-08] MEDS ORDERED: Guaifenesin DM 100-10/5 ML UDCUP PO PRN (11:28)
[2021-11-08] MEDS ORDERED: Potassium Chloride 20 MEQ/100 ML PREMIX BAG IVPB PRN (11:28)
[2021-11-08] MEDS ORDERED: Fentanyl 100 MCG/2 ML VIAL SLOW IVP PRN ×2 (11:28)
[2021-11-08] MEDS ORDERED: Bisacodyl 10 MG SUPP PR PRN (11:28)
[2021-11-08] MEDS ORDERED: Morphine 2 MG/ML VIAL SLOW IVP PRN (11:28)
[2021-11-08] MEDS ORDERED: DOPamine 400 MG/D5W 250 ML 250 ML IVPB PRN (11:28)
[2021-11-08] MEDS ORDERED: HYDROcodone/Acetaminophen 5/325 mg Tablet PO PRN (11:28)
[2021-11-08 11:51] LABS: Actual Bicarbonate (HCO3a) 21.9 mEq/L (22-28); Base Excess (BEa) -0.7 mEq/L (-2.0 to +3.0); CO2 Tension 29.7 mmHg (35.0-45.0); Calcium, Ionized (arterial) 1.08 mmol/L (1.12-1.30); Carboxyhemoglobin (COHb) 0.3 gm% (0.0-3.0); Hemoglobin (Hb) 11.1 g/dL (12.0-16.0); O2 Tension (PaO2), arterial 138.7 mmHg (> 80.0); pH, Arterial 7.49 (7.35-7.45)
[2021-11-08 11:53] LABS: ALV-art Gradient 251.975 mmHg (0-20); Puncture Site Arterial Line
[2021-11-08] MEDS ORDERED: Dextrose 50% Abboject 50 ML SYRINGE SLOW IVP PRN (12:00)
[2021-11-08] MEDS ORDERED: Dextrose 5% in Water 1,000 ML IV PRN (12:00)
[2021-11-08] MEDS ORDERED: HUMULIN R 100 UNITS in Sodium Chloride 0.9% 100 ML IVPB SCH (12:00)
[2021-11-08] MEDS: Insulin Regular 300 UNITS/3 ML VIAL SC PRN ×3 (12:00→20:12)
[2021-11-08 12:02] LABS: #Eosinphils 0.3 thou/uL (0.0-0.7); #Lymphocytes 1.5 thou/uL (1.20-3.40); #Monocytes 0.4 thou/uL (0.11-0.59); #Neutrophils 8.4 thou/uL (1.40-6.50); %Basophils 0.4 % (0.0-1.0); %Eosinophils 2.7 % (0.0-10.0); %Monocytes 3.4 % (0.0-10.0); %Neutrophils 79.6 % (42.0-75.0); Hemoglobin 10.5 g/dL (12.0-16.0); Mean Corpuscular HGB CONC 34.2 g/dL (32.0-36.0); Mean Corpuscular Hemoglobin 31.2 pg (27.0-31.0); Mean Corpuscular Volume 91.2 fL (78.0-98.0); Mean Platelet Volume 8.9 fL (7.4-10.4); Platelet Count 83 thou/uL (130-400); RBC Distribution Width 13.9 % (11.5-14.5); Red Blood Cell (RBC) Count 3.37 mill/uL (4.20-5.40); White Blood Cell (WBC) Count 10.6 thou/uL (4.8-10.8)
[2021-11-08] MEDS: Lactated Ringer's 1,000 ML IV SCH (12:02)
[2021-11-08 12:15] LABS: INR-International Normal Ratio 1.3; PTT 37.7 sec (22.9-36.1); Prothrombin Time 15.8 sec (12.0-14.7)
[2021-11-08 12:19] LABS: Anion Gap 12 mmol/L (10-20); BUN (Urea Nitrogen) 37 mg/dL (9.8-20.1); Calc. Creatinine Clearance 53 mL/min (70-130); Calcium 7.9 mg/dL (7.8-10.44); Carbon Dioxide 22 mmol/L (23-31); Chloride 111 mmol/L (98-107); Estimated GFR 43; Glucose 134 mg/dL (80-115); Potassium 4.3 mmol/L (3.5-5.1); Sodium 141 mmol/L (136-145)
[2021-11-08] MEDS: CEFAZOLIN 2 GM in Sodium Chloride 0.9% 100 ML IVPB SCH ×2 (14:25→21:59)
[2021-11-08] MEDS: Gabapentin 100 MG CAP PO SCH ×2 (14:25→20:13)
[2021-11-08 17:58] LABS: Hemoglobin 10.8 g/dL (12.0-16.0)
[2021-11-08 18:06] LABS: Potassium 4.5 mmol/L (3.5-5.1)
[2021-11-08 18:32] LABS: Actual Bicarbonate (HCO3a) 22.9 mEq/L (22-28); Base Excess (BEa) -1.6 mEq/L (-2.0 to +3.0); CO2 Tension 37.6 mmHg (35.0-45.0); Calcium, Ionized (arterial) 1.12 mmol/L (1.12-1.30); Carboxyhemoglobin (COHb) 0.3 gm% (0.0-3.0); Hemoglobin (Hb) 11.2 g/dL (12.0-16.0); O2 Tension (PaO2), arterial 123.7 mmHg (> 80.0); Potassium - ABG Lab 4.59 mmol/L (3.70-5.30)
[2021-11-08 18:34] LABS: Puncture Site LINE
[2021-11-08] MEDS: Rosuvastatin 20 MG TAB PO SCH (20:13)
[2021-11-08] MEDS: HYDROcodone/Acetaminophen 5/325 mg Tablet PO PRN (20:13)
[2021-11-08] MEDS ORDERED: Famotidine/PF 20 mg/2ml Vial SLOW IVP SCH (21:00)
[2021-11-09] MEDS: Lactated Ringer's 1,000 ML IV SCH ×2 (01:37→16:14)
[2021-11-09 04:47] LABS: Anion Gap 17 mmol/L (10-20); BUN (Urea Nitrogen) 40 mg/dL (9.8-20.1); Calc. Creatinine Clearance 21 mL/min (70-130); Calcium 8.2 mg/dL (7.8-10.44); Carbon Dioxide 17 mmol/L (23-31); Chloride 113 mmol/L (98-107); Estimated GFR 35; Glucose 120 mg/dL (80-115); Potassium 4.8 mmol/L (3.5-5.1); Sodium 142 mmol/L (136-145)
[2021-11-09 04:52] LABS: #Lymphocytes 0.7 thou/uL (1.20-3.40); #Monocytes 0.7 thou/uL (0.11-0.59); #Neutrophils 8.9 thou/uL (1.40-6.50); %Basophils 0.1 % (0.0-1.0); %Eosinophils 0.1 % (0.0-10.0); %Lymphocytes 7.1 % (21.0-51.0); %Monocytes 6.4 % (0.0-10.0); %Neutrophils 86.3 % (42.0-75.0); Hemoglobin 8.9 g/dL (12.0-16.0); Mean Corpuscular HGB CONC 33.1 g/dL (32.0-36.0); Mean Corpuscular Hemoglobin 30.8 pg (27.0-31.0); Mean Corpuscular Volume 92.8 fL (78.0-98.0); Mean Platelet Volume 10.2 fL (7.4-10.4); Platelet Count 65 thou/uL (130-400); Platelet Morphology Comment Appears Decreased; RBC Distribution Width 14.3 % (11.5-14.5); White Blood Cell (WBC) Count 10.3 thou/uL (4.8-10.8)
[2021-11-09] MEDS: Levothyroxine Sodium 75 MCG TAB PO SCH (05:05)
[2021-11-09] MEDS: CEFAZOLIN 2 GM in Sodium Chloride 0.9% 100 ML IVPB SCH (05:10)
[2021-11-09] MEDS: Ondansetron PF 4 MG/2 ML Vial IVP PRN (07:50)
[2021-11-09] MEDS: Insulin Regular 300 UNITS/3 ML VIAL SC PRN ×3 (07:55→22:13)
[2021-11-09] MEDS ORDERED: Aspirin 325 MG TAB PO SCH (09:00)
[2021-11-09] MEDS: Magnesium 2 GM/50 ML(in water) 2 GM in Premix Bag 1 BAG IVPB SCH (09:17)
[2021-11-09] MEDS ORDERED: Insulin Glargine 30 UNITS/0.3 ML VIAL SC PRN (11:48)
[2021-11-09] MEDS: Gabapentin 100 MG CAP PO SCH ×3 (11:58→20:31)
[2021-11-09] MEDS: HYDROcodone/Acetaminophen 5/325 mg Tablet PO PRN (20:24)
[2021-11-09] MEDS: Rosuvastatin 20 MG TAB PO SCH (20:24)
[2021-11-10] MEDS: Levothyroxine Sodium 75 MCG TAB PO SCH (03:53)
[2021-11-10] MEDS: Insulin Regular 300 UNITS/3 ML VIAL SC PRN ×4 (04:10→21:12)
[2021-11-10 04:31] LABS: Anion Gap 10 mmol/L (10-20); BUN (Urea Nitrogen) 46 mg/dL (9.8-20.1); Calc. Creatinine Clearance 38 mL/min (70-130); Calcium 8.5 mg/dL (7.8-10.44); Carbon Dioxide 24 mmol/L (23-31); Chloride 108 mmol/L (98-107); Estimated GFR 29; Glucose 248 mg/dL (80-115); Sodium 138 mmol/L (136-145)
[2021-11-10 04:45] LABS: #Monocytes 1.2 thou/uL (0.11-0.59); #Neutrophils 11.2 thou/uL (1.40-6.50); %Basophils 0.4 % (0.0-1.0); %Eosinophils 0.2 % (0.0-10.0); %Lymphocytes 7.2 % (21.0-51.0); %Monocytes 9.2 % (0.0-10.0); Hemoglobin 9.6 g/dL (12.0-16.0); Mean Corpuscular HGB CONC 32.6 g/dL (32.0-36.0); Mean Corpuscular Hemoglobin 30.7 pg (27.0-31.0); Mean Platelet Volume 9.4 fL (7.4-10.4); Platelet Count 89 thou/uL (130-400); RBC Distribution Width 14.3 % (11.5-14.5); Red Blood Cell (RBC) Count 3.13 mill/uL (4.20-5.40); White Blood Cell (WBC) Count 13.5 thou/uL (4.8-10.8)
[2021-11-10] MEDS ORDERED: Nitroglycerin 0.4 MG TAB (25 Tab Bottle) SL PRN (06:34)
[2021-11-10] MEDS ORDERED: Dextrose 50% Abboject 50 ML SYRINGE IVP PRN (06:45)
[2021-11-10] MEDS ORDERED: Dextrose 5% in Water 1,000 ML IV PRN (06:45)
[2021-11-10 07:43] LABS: Glucose 230 mg/dL (80-115)
[2021-11-10] MEDS: HYDROcodone/Acetaminophen 5/325 mg Tablet PO PRN ×2 (08:09→18:02)
[2021-11-10] MEDS: Gabapentin 100 MG CAP PO SCH ×3 (08:11→21:05)
[2021-11-10] MEDS: Polyethylene Glycol 3350 17 GM Packet PO SCH (08:12)
[2021-11-10] MEDS: Magnesium 2 GM/50 ML(in water) 2 GM in Premix Bag 1 BAG IVPB SCH (08:12)
[2021-11-10] MEDS: Potassium Chloride 10 MEQ TAB PO SCH (08:12)
[2021-11-10] MEDS: Insulin Glargine 30 UNITS/0.3 ML VIAL SC SCH ×2 (08:16→21:06)
[2021-11-10] MEDS ORDERED: Aspirin 325 mg Enteric Coated Tablet PO SCH (09:00)
[2021-11-10] MEDS ORDERED: Furosemide 40 MG TAB PO SCH (09:00)
[2021-11-10 17:51] LABS: Glucose 255 mg/dL (80-115)
[2021-11-10] MEDS: Rosuvastatin 20 MG TAB PO SCH (21:06)
[2021-11-11 05:12] LABS: #Eosinphils 0.2 thou/uL (0.0-0.7); #Lymphocytes 2.1 thou/uL (1.20-3.40); #Monocytes 1.4 thou/uL (0.11-0.59); #Neutrophils 8.7 thou/uL (1.40-6.50); %Basophils 0.2 % (0.0-1.0); %Eosinophils 1.8 % (0.0-10.0); %Monocytes 11.2 % (0.0-10.0); %Neutrophils 69.7 % (42.0-75.0); Hemoglobin 7.7 g/dL (12.0-16.0); Mean Corpuscular HGB CONC 32.2 g/dL (32.0-36.0); Mean Corpuscular Hemoglobin 30.5 pg (27.0-31.0); Mean Corpuscular Volume 94.6 fL (78.0-98.0); Mean Platelet Volume 9.6 fL (7.4-10.4); Platelet Count 76 thou/uL (130-400); RBC Distribution Width 14.1 % (11.5-14.5); Red Blood Cell (RBC) Count 2.54 mill/uL (4.20-5.40); White Blood Cell (WBC) Count 12.5 thou/uL (4.8-10.8)
[2021-11-11 05:32] LABS: Anion Gap 13 mmol/L (10-20); BUN (Urea Nitrogen) 59 mg/dL (9.8-20.1); Calc. Creatinine Clearance 34 mL/min (70-130); Calcium 8.3 mg/dL (7.8-10.44); Carbon Dioxide 21 mmol/L (23-31); Chloride 107 mmol/L (98-107); Estimated GFR 23; Glucose 161 mg/dL (80-115); Potassium 3.9 mmol/L (3.5-5.1); Sodium 137 mmol/L (136-145)
[2021-11-11] MEDS: Levothyroxine Sodium 75 MCG TAB PO SCH (05:39)
[2021-11-11] MEDS ORDERED: DOBUTamine 500 mg/250 ml 250 ML IVPB SCH ×3 (08:30→15:00)
[2021-11-11] MEDS: Gabapentin 100 MG CAP PO SCH ×3 (09:59→20:35)
[2021-11-11] MEDS: HYDROcodone/Acetaminophen 5/325 mg Tablet PO PRN ×2 (09:59→18:17)
[2021-11-11] MEDS ORDERED: Aspirin 81 mg Enteric Coated Tablet PO SCH (10:00)
[2021-11-11] MEDS: Polyethylene Glycol 3350 17 GM Packet PO SCH (10:01)
[2021-11-11] MEDS: Potassium Chloride 10 MEQ TAB PO SCH (10:02)
[2021-11-11] MEDS: Insulin Regular 300 UNITS/3 ML VIAL SC PRN ×3 (11:54→22:51)
[2021-11-11 12:25] LABS: Glucose 306 mg/dL (80-115)
[2021-11-11 17:27] LABS: Glucose 306 mg/dL (80-115)
[2021-11-11] MEDS: Insulin Glargine 30 UNITS/0.3 ML VIAL SC SCH (20:34)
[2021-11-11] MEDS: Rosuvastatin 20 MG TAB PO SCH (20:35)
[2021-11-11 22:08] LABS: Glucose 267 mg/dL (80-115)
[2021-11-12 05:29] LABS: Anion Gap 12 mmol/L (10-20); BUN (Urea Nitrogen) 63 mg/dL (9.8-20.1); Calc. Creatinine Clearance 35 mL/min (70-130); Calcium 8.1 mg/dL (7.8-10.44); Carbon Dioxide 22 mmol/L (23-31); Chloride 108 mmol/L (98-107); Estimated GFR 24; Glucose 146 mg/dL (80-115); Potassium 3.8 mmol/L (3.5-5.1); Sodium 138 mmol/L (136-145)
[2021-11-12] MEDS: Levothyroxine Sodium 75 MCG TAB PO SCH (06:00)
[2021-11-12 06:14] LABS: Hemoglobin 7.4 g/dL (12.0-16.0); Mean Corpuscular HGB CONC 33.2 g/dL (32.0-36.0); Mean Corpuscular Hemoglobin 31.3 pg (27.0-31.0); Mean Corpuscular Volume 94.2 fL (78.0-98.0); Platelet Count 104 thou/uL (130-400); RBC Distribution Width 13.9 % (11.5-14.5); Red Blood Cell (RBC) Count 2.38 mill/uL (4.20-5.40); White Blood Cell (WBC) Count 10.4 thou/uL (4.8-10.8)
[2021-11-12 06:43] LABS: #Eosinphils 0.3 thou/uL (0.0-0.7); #Lymphocytes 1.9 thou/uL (1.20-3.40); #Monocytes 1.1 thou/uL (0.11-0.59); #Neutrophils 7.1 thou/uL (1.40-6.50); %Basophils 0.4 % (0.0-1.0); %Eosinophils 3.1 % (0.0-10.0); %Monocytes 10.2 % (0.0-10.0); %Neutrophils 68.4 % (42.0-75.0); Platelet Morphology Comment Appears Decreased
[2021-11-12] MEDS: HYDROcodone/Acetaminophen 5/325 mg Tablet PO PRN ×2 (08:26→20:07)
[2021-11-12] MEDS: Gabapentin 100 MG CAP PO SCH ×3 (08:29→20:07)
[2021-11-12] MEDS: Polyethylene Glycol 3350 17 GM Packet PO SCH (08:30)
[2021-11-12] MEDS: Aspirin 81 mg Enteric Coated Tablet PO SCH (08:30)
[2021-11-12] MEDS: Insulin Glargine 30 UNITS/0.3 ML VIAL SC SCH ×2 (08:30→20:12)
[2021-11-12 08:31] LABS: Glucose 113 mg/dL (80-115)
[2021-11-12] MEDS ORDERED: Furosemide 40 MG TAB PO SCH (11:15)
[2021-11-12] MEDS: Insulin Regular 300 UNITS/3 ML VIAL SC PRN ×3 (12:27→20:13)
[2021-11-12] MEDS: Ondansetron PF 4 MG/2 ML Vial IVP PRN (12:35)
[2021-11-12] MEDS: Rosuvastatin 20 MG TAB PO SCH (20:07)
[2021-11-13] MEDS: HYDROcodone/Acetaminophen 5/325 mg Tablet PO PRN ×2 (04:05→17:56)
[2021-11-13 04:46] LABS: #Basophils 0.1 thou/uL (0.0-0.2); #Eosinphils 0.7 thou/uL (0.0-0.7); #Lymphocytes 1.9 thou/uL (1.20-3.40); #Monocytes 1.2 thou/uL (0.11-0.59); #Neutrophils 5.5 thou/uL (1.40-6.50); %Basophils 0.6 % (0.0-1.0); %Eosinophils 7.2 % (0.0-10.0); %Lymphocytes 20.6 % (21.0-51.0); %Monocytes 12.7 % (0.0-10.0); %Neutrophils 58.9 % (42.0-75.0); Hemoglobin 7.5 g/dL (12.0-16.0); Mean Corpuscular HGB CONC 32.3 g/dL (32.0-36.0); Mean Corpuscular Hemoglobin 30.4 pg (27.0-31.0); Mean Corpuscular Volume 94.1 fL (78.0-98.0); Mean Platelet Volume 8.5 fL (7.4-10.4); Platelet Count 136 thou/uL (130-400); Red Blood Cell (RBC) Count 2.46 mill/uL (4.20-5.40); White Blood Cell (WBC) Count 9.3 thou/uL (4.8-10.8)
[2021-11-13 05:02] LABS: Anion Gap 13 mmol/L (10-20); BUN (Urea Nitrogen) 62 mg/dL (9.8-20.1); Calc. Creatinine Clearance 36 mL/min (70-130); Calcium 8.4 mg/dL (7.8-10.44); Carbon Dioxide 21 mmol/L (23-31); Chloride 108 mmol/L (98-107); Estimated GFR 24; Glucose 149 mg/dL (80-115); Potassium 4.3 mmol/L (3.5-5.1); Sodium 138 mmol/L (136-145)
[2021-11-13] MEDS: Levothyroxine Sodium 75 MCG TAB PO SCH (05:28)
[2021-11-13] MEDS: Insulin Regular 300 UNITS/3 ML VIAL SC PRN ×4 (05:31→20:46)
[2021-11-13] MEDS ORDERED: Furosemide 40 MG TAB PO SCH (07:30)
[2021-11-13] MEDS: Insulin Glargine 30 UNITS/0.3 ML VIAL SC SCH ×2 (09:56→20:46)
[2021-11-13] MEDS: Gabapentin 100 MG CAP PO SCH ×3 (09:57→20:45)
[2021-11-13] MEDS: Polyethylene Glycol 3350 17 GM Packet PO SCH (09:57)
[2021-11-13] MEDS: Aspirin 81 mg Enteric Coated Tablet PO SCH (09:58)
[2021-11-13] MEDS: DOBUTamine 500 mg/250 ml 250 ML IVPB SCH ×2 (10:10→20:47)
[2021-11-13] MEDS: Ondansetron PF 4 MG/2 ML Vial IVP PRN (14:29)
[2021-11-13] MEDS: Rosuvastatin 20 MG TAB PO SCH (20:46)
[2021-11-14 03:52] LABS: #Eosinphils 0.7 thou/uL (0.0-0.7); #Lymphocytes 2.3 thou/uL (1.20-3.40); #Neutrophils 4.6 thou/uL (1.40-6.50); %Basophils 0.6 % (0.0-1.0); %Eosinophils 7.9 % (0.0-10.0); %Lymphocytes 26.4 % (21.0-51.0); %Monocytes 12.1 % (0.0-10.0); %Neutrophils 53.1 % (42.0-75.0); Hemoglobin 7.7 g/dL (12.0-16.0); Mean Corpuscular HGB CONC 32.8 g/dL (32.0-36.0); Mean Corpuscular Hemoglobin 30.8 pg (27.0-31.0); Mean Platelet Volume 7.7 fL (7.4-10.4); Platelet Count 173 thou/uL (130-400); RBC Distribution Width 13.8 % (11.5-14.5); Red Blood Cell (RBC) Count 2.48 mill/uL (4.20-5.40); White Blood Cell (WBC) Count 8.6 thou/uL (4.8-10.8)
[2021-11-14 04:10] LABS: Anion Gap 13 mmol/L (10-20); BUN (Urea Nitrogen) 59 mg/dL (9.8-20.1); Calc. Creatinine Clearance 36 mL/min (70-130); Calcium 8.8 mg/dL (7.8-10.44); Carbon Dioxide 21 mmol/L (23-31); Chloride 108 mmol/L (98-107); Estimated GFR 25; Glucose 109 mg/dL (80-115); Potassium 4.1 mmol/L (3.5-5.1); Sodium 138 mmol/L (136-145)
[2021-11-14] MEDS: Levothyroxine Sodium 75 MCG TAB PO SCH (05:03)
[2021-11-14] MEDS: Gabapentin 100 MG CAP PO SCH ×3 (09:13→21:01)
[2021-11-14] MEDS: Furosemide 40 MG/4 ML VIAL SLOW IVP SCH (09:13)
[2021-11-14] MEDS: Aspirin 81 mg Enteric Coated Tablet PO SCH (09:13)
[2021-11-14] MEDS: Insulin Glargine 30 UNITS/0.3 ML VIAL SC SCH ×2 (09:14→21:01)
[2021-11-14] MEDS: Polyethylene Glycol 3350 17 GM Packet PO SCH (09:14)
[2021-11-14] MEDS ORDERED: Amiodarone 150 MG in Dextrose 5% in Water 100 ML IVPB SCH (16:00)
[2021-11-14] MEDS ORDERED: Amiodarone 450 MG in Dextrose 5% in Water 250 ML IVPB SCH (16:00)
[2021-11-14] MEDS: Insulin Regular 300 UNITS/3 ML VIAL SC PRN ×2 (17:36→21:02)
[2021-11-14] MEDS: Epoetin (ESRD) 20,000 UNITS/ML SC SCH (17:37)
[2021-11-14] MEDS: Rosuvastatin 20 MG TAB PO SCH (21:01)
[2021-11-14] MEDS: HYDROcodone/Acetaminophen 5/325 mg Tablet PO PRN (21:02)
[2021-11-15 04:57] LABS: #Basophils 0.1 thou/uL (0.0-0.2); #Eosinphils 0.7 thou/uL (0.0-0.7); #Lymphocytes 3.1 thou/uL (1.20-3.40); #Monocytes 1.1 thou/uL (0.11-0.59); #Neutrophils 4.8 thou/uL (1.40-6.50); %Basophils 0.7 % (0.0-1.0); %Eosinophils 7.5 % (0.0-10.0); %Lymphocytes 31.6 % (21.0-51.0); %Monocytes 10.9 % (0.0-10.0); %Neutrophils 49.3 % (42.0-75.0); Hemoglobin 7.5 g/dL (12.0-16.0); Mean Corpuscular HGB CONC 33.6 g/dL (32.0-36.0); Mean Corpuscular Hemoglobin 31.2 pg (27.0-31.0); Mean Corpuscular Volume 92.8 fL (78.0-98.0); Platelet Count 188 thou/uL (130-400); RBC Distribution Width 14.5 % (11.5-14.5); Red Blood Cell (RBC) Count 2.39 mill/uL (4.20-5.40); White Blood Cell (WBC) Count 9.7 thou/uL (4.8-10.8)
[2021-11-15 05:39] LABS: Anion Gap 13 mmol/L (10-20); BUN (Urea Nitrogen) 54 mg/dL (9.8-20.1); Calc. Creatinine Clearance 39 mL/min (70-130); Calcium 8.7 mg/dL (7.8-10.44); Carbon Dioxide 21 mmol/L (23-31); Chloride 107 mmol/L (98-107); Estimated GFR 26; Glucose 123 mg/dL (80-115); Potassium 4.1 mmol/L (3.5-5.1); Sodium 137 mmol/L (136-145)
[2021-11-15] MEDS: Levothyroxine Sodium 75 MCG TAB PO SCH (05:39)
[2021-11-15] MEDS: Aspirin 81 mg Enteric Coated Tablet PO SCH (09:04)
[2021-11-15] MEDS: Furosemide 40 MG/4 ML VIAL SLOW IVP SCH (09:04)
[2021-11-15] MEDS: Gabapentin 100 MG CAP PO SCH ×3 (09:04→21:59)
[2021-11-15] MEDS: Amiodarone 200 MG TAB PO SCH ×2 (09:04→21:58)
[2021-11-15] MEDS: Polyethylene Glycol 3350 17 GM Packet PO SCH (09:05)
[2021-11-15] MEDS ORDERED: Amiodarone 450 MG in Dextrose 5% in Water 250 ML IVPB SCH (10:00)
[2021-11-15] MEDS: Insulin Glargine 30 UNITS/0.3 ML VIAL SC SCH ×2 (10:47→21:59)
[2021-11-15] MEDS: HYDROcodone/Acetaminophen 5/325 mg Tablet PO PRN ×3 (11:37→22:00)
[2021-11-15 15:38] LABS: Actual Bicarbonate (HCO3a) 24.2 mEq/L (22-28); Analyzer IN Cardio OR; Base Excess (BEa) 0.6 mEq/L (-2.0 to +3.0); CO2 Tension 33.5 mmHg (35.0-45.0); Carboxyhemoglobin (COHb) 0.9 gm% (0.0-3.0); Hemoglobin (Hb) 6.9 g/dL (12.0-16.0); O2 Tension (PaO2), arterial 326.7 mmHg (> 80.0); Potassium - ABG Lab 3.82 mmol/L (3.70-5.30); pH, Arterial 7.48 (7.35-7.45)
[2021-11-15 15:38] LABS: Analyzer IN Cardio OR; Base Excess (BEa) -0.2 mEq/L (-2.0 to +3.0); CO2 Tension 36.6 mmHg (35.0-45.0); Calcium, Ionized (arterial) 1.03 mmol/L (1.12-1.30); Carboxyhemoglobin (COHb) 0.9 gm% (0.0-3.0); Hemoglobin (Hb) 7.7 g/dL (12.0-16.0); O2 Tension (PaO2), arterial 390.1 mmHg (> 80.0); Potassium - ABG Lab 4.26 mmol/L (3.70-5.30); pH, Arterial 7.43 (7.35-7.45)
[2021-11-15 15:38] LABS: Actual Bicarbonate (HCO3a) 24.9 mEq/L (22-28); Analyzer IN Cardio OR; Base Excess (BEa) 1.5 mEq/L (-2.0 to +3.0); CO2 Tension 33.9 mmHg (35.0-45.0); Carboxyhemoglobin (COHb) 0.5 gm% (0.0-3.0); Hemoglobin (Hb) 7.8 g/dL (12.0-16.0); O2 Tension (PaO2), arterial 387.6 mmHg (> 80.0); Potassium - ABG Lab 3.74 mmol/L (3.70-5.30); pH, Arterial 7.48 (7.35-7.45)
[2021-11-15 15:39] LABS: Actual Bicarbonate (HCO3a) 25.1 mEq/L (22-28); Analyzer IN Cardio OR; Base Excess (BEa) -0.3 mEq/L (-2.0 to +3.0); CO2 Tension 45.3 mmHg (35.0-45.0); Carboxyhemoglobin (COHb) 0.7 gm% (0.0-3.0); Hemoglobin (Hb) 7.2 g/dL (12.0-16.0); O2 Tension (PaO2), arterial 352.1 mmHg (> 80.0); Potassium - ABG Lab 4.51 mmol/L (3.70-5.30); pH, Arterial 7.36 (7.35-7.45)
[2021-11-15 15:39] LABS: Actual Bicarbonate (HCO3a) 20.9 mEq/L (22-28); Analyzer IN Cardio OR; Base Excess (BEa) -1.6 mEq/L (-2.0 to +3.0); CO2 Tension 27.8 mmHg (35.0-45.0); Calcium, Ionized (arterial) 1.02 mmol/L (1.12-1.30); Carboxyhemoglobin (COHb) 0.3 gm% (0.0-3.0); Hemoglobin (Hb) 9.5 g/dL (12.0-16.0); O2 Tension (PaO2), arterial 308.6 mmHg (> 80.0); Potassium - ABG Lab 4.07 mmol/L (3.70-5.30)
[2021-11-15 15:40] LABS: Puncture Site Arterial Line
[2021-11-15 15:40] LABS: Puncture Site Arterial Line
[2021-11-15 15:40] LABS: Puncture Site Arterial Line
[2021-11-15 15:41] LABS: Puncture Site Arterial Line
[2021-11-15 15:44] LABS: Puncture Site Arterial Line
[2021-11-15 15:49] LABS: Analyzer IN Cardio OR; Base Excess (BEa) 0.5 mEq/L (-2.0 to +3.0); CO2 Tension 33.3 mmHg (35.0-45.0); Calcium, Ionized (arterial) 1.06 mmol/L (1.12-1.30); Carboxyhemoglobin (COHb) 0.5 gm% (0.0-3.0); Hemoglobin (Hb) 7.7 g/dL (12.0-16.0); O2 Tension (PaO2), arterial 320.6 mmHg (> 80.0); Potassium - ABG Lab 4.33 mmol/L (3.70-5.30); Puncture Site Arterial Line; pH, Arterial 7.48 (7.35-7.45)
[2021-11-15] MEDS: Rosuvastatin 20 MG TAB PO SCH (21:59)
[2021-11-15] MEDS: Insulin Regular 300 UNITS/3 ML VIAL SC PRN (22:01)
[2021-11-16] MEDS: Mag-Al 1200 mg/1200 mg/30 ML UDCUP PO PRN ×2 (06:27→20:46)
[2021-11-16] MEDS: Insulin Regular 300 UNITS/3 ML VIAL SC PRN ×2 (06:28→22:29)
[2021-11-16] MEDS: Levothyroxine Sodium 75 MCG TAB PO SCH (06:28)
[2021-11-16] MEDS: Amiodarone 200 MG TAB PO SCH ×2 (09:55→20:48)
[2021-11-16] MEDS: Polyethylene Glycol 3350 17 GM Packet PO SCH (09:56)
[2021-11-16] MEDS: Furosemide 40 MG/4 ML VIAL SLOW IVP SCH (09:56)
[2021-11-16] MEDS: Aspirin 81 mg Enteric Coated Tablet PO SCH (09:56)
[2021-11-16] MEDS: Gabapentin 100 MG CAP PO SCH ×3 (09:56→20:48)
[2021-11-16] MEDS: Insulin Glargine 30 UNITS/0.3 ML VIAL SC SCH ×2 (11:37→20:48)
[2021-11-16] MEDS: HYDROcodone/Acetaminophen 5/325 mg Tablet PO PRN ×2 (14:44→20:47)
[2021-11-16] MEDS: Metoprolol Tartrate 25 MG TAB PO SCH (20:48)
[2021-11-16] MEDS: Rosuvastatin 20 MG TAB PO SCH (20:48)
[2021-11-17] MEDS: HYDROcodone/Acetaminophen 5/325 mg Tablet PO PRN ×2 (05:42→21:12)
[2021-11-17] MEDS: Levothyroxine Sodium 75 MCG TAB PO SCH (05:43)
[2021-11-17 06:34] LABS: #Basophils 0.1 thou/uL (0.0-0.2); #Eosinphils 0.8 thou/uL (0.0-0.7); #Lymphocytes 2.3 thou/uL (1.20-3.40); #Neutrophils 5.7 thou/uL (1.40-6.50); %Eosinophils 7.8 % (0.0-10.0); %Lymphocytes 23.3 % (21.0-51.0); %Monocytes 10.1 % (0.0-10.0); %Neutrophils 57.9 % (42.0-75.0); Hemoglobin 7.5 g/dL (12.0-16.0); Mean Corpuscular HGB CONC 31.8 g/dL (32.0-36.0); Mean Corpuscular Hemoglobin 29.7 pg (27.0-31.0); Mean Corpuscular Volume 93.5 fL (78.0-98.0); Mean Platelet Volume 7.5 fL (7.4-10.4); Platelet Count 260 thou/uL (130-400); Red Blood Cell (RBC) Count 2.51 mill/uL (4.20-5.40); White Blood Cell (WBC) Count 9.9 thou/uL (4.8-10.8)
[2021-11-17 06:48] LABS: Anion Gap 15 mmol/L (10-20); BUN (Urea Nitrogen) 57 mg/dL (9.8-20.1); Calc. Creatinine Clearance 36 mL/min (70-130); Calcium 9.1 mg/dL (7.8-10.44); Carbon Dioxide 23 mmol/L (23-31); Chloride 106 mmol/L (98-107); Estimated GFR 23; Glucose 112 mg/dL (80-115); Potassium 5.2 mmol/L (3.5-5.1); Sodium 139 mmol/L (136-145)
[2021-11-17] MEDS: Aspirin 81 mg Enteric Coated Tablet PO SCH (09:06)
[2021-11-17] MEDS: Amiodarone 200 MG TAB PO SCH ×2 (09:06→21:11)
[2021-11-17] MEDS: Furosemide 40 MG/4 ML VIAL SLOW IVP SCH (09:06)
[2021-11-17] MEDS: Insulin Glargine 30 UNITS/0.3 ML VIAL SC SCH ×2 (09:07→21:12)
[2021-11-17] MEDS: Gabapentin 100 MG CAP PO SCH ×3 (09:07→21:11)
[2021-11-17] MEDS: Metoprolol Tartrate 25 MG TAB PO SCH ×2 (09:07→21:11)
[2021-11-17] MEDS: Polyethylene Glycol 3350 17 GM Packet PO SCH (09:07)
[2021-11-17 14:00] LABS: Anion Gap 12 mmol/L (10-20); BUN (Urea Nitrogen) 58 mg/dL (9.8-20.1); Calc. Creatinine Clearance 35 mL/min (70-130); Calcium 8.5 mg/dL (7.8-10.44); Carbon Dioxide 25 mmol/L (23-31); Chloride 101 mmol/L (98-107); Estimated GFR 23; Glucose 282 mg/dL (80-115); Sodium 133 mmol/L (136-145)
[2021-11-17] MEDS: Rosuvastatin 20 MG TAB PO SCH (21:11)
[2021-11-18] MEDS: HYDROcodone/Acetaminophen 5/325 mg Tablet PO PRN ×2 (05:41→21:14)
[2021-11-18] MEDS: Levothyroxine Sodium 75 MCG TAB PO SCH (05:41)
[2021-11-18] MEDS: Gabapentin 100 MG CAP PO SCH ×3 (09:23→21:14)
[2021-11-18] MEDS: Furosemide 40 MG/4 ML VIAL SLOW IVP SCH (09:23)
[2021-11-18] MEDS: Aspirin 81 mg Enteric Coated Tablet PO SCH (09:23)
[2021-11-18] MEDS: Amiodarone 200 MG TAB PO SCH ×2 (09:23→21:14)
[2021-11-18] MEDS: Insulin Glargine 30 UNITS/0.3 ML VIAL SC SCH ×2 (09:24→21:15)
[2021-11-18] MEDS: Metoprolol Tartrate 25 MG TAB PO SCH ×2 (09:24→21:14)
[2021-11-18] MEDS: Sulfameth/Trimethoprim DS 800-160mg TAB PO SCH (10:30)
[2021-11-18] MEDS: Ondansetron PF 4 MG/2 ML Vial IVP PRN (11:41)
[2021-11-18] MEDS: Polyethylene Glycol 3350 17 GM Packet PO SCH (11:42)
[2021-11-18 11:46] LABS: Bacteria/HPF 2+ HPF (None Seen); Bilirubin Negative (Negative); Blood, Urine Negative (Negative); Clarity Clear (Clear); Glucose, Urine (Dipstick) Normal (Negative); Ketone, Urine Negative (Negative); Leukocyte 500 Leu/uL (Negative); Nitrite Negative (Negative); Protein, Urine (Dipstick) 100 mg/dL (Neg-Trace); RBC/HPF 0-3 HPF (0-3); Specific Gravity, Urine 1.012 (1.002-1.036); Squamous Epithelial 0-3 HPF (0-3); Urobilinogen Normal mg/dL (Less than 2); WBC/HPF Greater than 50 HPF (0-3)
[2021-11-18 11:49] LABS: Urine Culture Reflex Yes Yes
[2021-11-18 13:14] LABS: Anion Gap 12 mmol/L (10-20); BUN (Urea Nitrogen) 60 mg/dL (9.8-20.1); Calc. Creatinine Clearance 38 mL/min (70-130); Calcium 8.8 mg/dL (7.8-10.44); Carbon Dioxide 25 mmol/L (23-31); Chloride 102 mmol/L (98-107); Estimated GFR 25; Glucose 151 mg/dL (80-115); Potassium 4.7 mmol/L (3.5-5.1); Sodium 134 mmol/L (136-145)
[2021-11-18] MEDS ORDERED: diphenhydrAMINE 25 MG CAP PO SCH (14:45)
[2021-11-18] MEDS: Rosuvastatin 10 MG TAB PO SCH (21:15)
[2021-11-19] MEDS: Levothyroxine Sodium 75 MCG TAB PO SCH (06:08)
[2021-11-19] MEDS ORDERED: Metolazone 5 MG TAB PO SCH (08:15)
[2021-11-19] MEDS: Polyethylene Glycol 3350 17 GM Packet PO SCH ×2 (09:31→09:38)
[2021-11-19] MEDS: Gabapentin 100 MG CAP PO SCH ×3 (09:31→21:10)
[2021-11-19] MEDS: Aspirin 81 mg Enteric Coated Tablet PO SCH (09:31)
[2021-11-19] MEDS: Metoprolol Tartrate 25 MG TAB PO SCH ×2 (09:32→21:10)
[2021-11-19] MEDS: Amiodarone 200 MG TAB PO SCH ×2 (09:32→21:10)
[2021-11-19] MEDS: Insulin Glargine 30 UNITS/0.3 ML VIAL SC SCH ×2 (09:35→21:10)
[2021-11-19] MEDS: Amoxicillin/Potassium Clav 500 MG TAB PO SCH ×2 (09:35→21:09)
[2021-11-19] MEDS: Sulfameth/Trimethoprim DS 800-160mg TAB PO SCH (09:38)
[2021-11-19] MEDS: Furosemide 40 MG/4 ML VIAL SLOW IVP SCH (10:28)
[2021-11-19] MEDS: Acetaminophen 325 MG TAB PO PRN ×2 (13:46→21:09)
[2021-11-19] MEDS: Rosuvastatin 10 MG TAB PO SCH (21:10)
[2021-11-20] MEDS: Levothyroxine Sodium 75 MCG TAB PO SCH (06:06)
[2021-11-20] MEDS: Polyethylene Glycol 3350 17 GM Packet PO SCH (09:54)
[2021-11-20] MEDS: Amoxicillin/Potassium Clav 500 MG TAB PO SCH ×2 (09:55→21:00)
[2021-11-20] MEDS: Gabapentin 100 MG CAP PO SCH ×3 (09:55→21:00)
[2021-11-20] MEDS: Amiodarone 200 MG TAB PO SCH ×2 (09:55→21:00)
[2021-11-20] MEDS: Aspirin 81 mg Enteric Coated Tablet PO SCH (09:56)
[2021-11-20] MEDS: Furosemide 40 MG/4 ML VIAL SLOW IVP SCH (09:56)
[2021-11-20] MEDS: Insulin Glargine 30 UNITS/0.3 ML VIAL SC SCH ×2 (09:56→21:01)
[2021-11-20] MEDS: Acetaminophen 325 MG TAB PO PRN (16:31)
[2021-11-20] MEDS: Mag-Al 1200 mg/1200 mg/30 ML UDCUP PO PRN (20:50)
[2021-11-20] MEDS: Rosuvastatin 10 MG TAB PO SCH (21:00)
[2021-11-20] MEDS: Calcium Carbonate 500 MG ChewTAB PO PRN (23:56)
[2021-11-20] MEDS ORDERED: Famotidine 20 MG TAB PO SCH (23:59)
[2021-11-21 04:46] LABS: #Basophils 0.1 thou/uL (0.0-0.2); #Eosinphils 0.8 thou/uL (0.0-0.7); #Lymphocytes 2.3 thou/uL (1.20-3.40); #Monocytes 0.7 thou/uL (0.11-0.59); #Neutrophils 6.5 thou/uL (1.40-6.50); %Basophils 1.1 % (0.0-1.0); %Eosinophils 7.4 % (0.0-10.0); %Lymphocytes 21.7 % (21.0-51.0); %Neutrophils 62.8 % (42.0-75.0); Hemoglobin 7.5 g/dL (12.0-16.0); Mean Corpuscular HGB CONC 33.5 g/dL (32.0-36.0); Mean Corpuscular Hemoglobin 31.5 pg (27.0-31.0); Mean Platelet Volume 7.7 fL (7.4-10.4); Platelet Count 323 thou/uL (130-400); RBC Distribution Width 14.6 % (11.5-14.5); Red Blood Cell (RBC) Count 2.39 mill/uL (4.20-5.40); White Blood Cell (WBC) Count 10.4 thou/uL (4.8-10.8)
[2021-11-21 05:04] LABS: Anion Gap 13 mmol/L (10-20); BUN (Urea Nitrogen) 74 mg/dL (9.8-20.1); Calc. Creatinine Clearance 31 mL/min (70-130); Calcium 9.2 mg/dL (7.8-10.44); Carbon Dioxide 25 mmol/L (23-31); Chloride 104 mmol/L (98-107); Estimated GFR 20; Glucose 213 mg/dL (80-115); Potassium 3.8 mmol/L (3.5-5.1); Sodium 138 mmol/L (136-145)
[2021-11-21] MEDS: Levothyroxine Sodium 75 MCG TAB PO SCH (06:30)
[2021-11-21] MEDS: Amoxicillin/Potassium Clav 500 MG TAB PO SCH ×2 (09:12→20:06)
[2021-11-21] MEDS: Amiodarone 200 MG TAB PO SCH ×2 (09:12→20:05)
[2021-11-21] MEDS: Gabapentin 100 MG CAP PO SCH ×3 (09:12→20:06)
[2021-11-21] MEDS: Aspirin 81 mg Enteric Coated Tablet PO SCH (09:12)
[2021-11-21] MEDS: Polyethylene Glycol 3350 17 GM Packet PO SCH (09:12)
[2021-11-21] MEDS: Insulin Glargine 30 UNITS/0.3 ML VIAL SC SCH ×2 (09:12→20:08)
[2021-11-21] MEDS: hydrALAZINE 25 MG TAB PO SCH ×2 (09:12→20:07)
[2021-11-21] MEDS: Furosemide 40 MG/4 ML VIAL SLOW IVP SCH (09:12)
[2021-11-21] MEDS: Ondansetron PF 4 MG/2 ML Vial IVP PRN (09:13)
[2021-11-21] MEDS: Epoetin (ESRD) 20,000 UNITS/ML SC SCH (17:20)
[2021-11-21] MEDS: Rosuvastatin 10 MG TAB PO SCH (20:07)
[2021-11-22] MEDS: Levothyroxine Sodium 75 MCG TAB PO SCH (05:36)
[2021-11-22 06:38] VITALS: BMI 32.1
[2021-11-22 06:40] LABS: Anion Gap 13 mmol/L (10-20); BUN (Urea Nitrogen) 64 mg/dL (9.8-20.1); Calc. Creatinine Clearance 34 mL/min (70-130); Calcium 9.4 mg/dL (7.8-10.44); Carbon Dioxide 26 mmol/L (23-31); Chloride 105 mmol/L (98-107); Estimated GFR 23; Glucose 150 mg/dL (80-115); Potassium 3.9 mmol/L (3.5-5.1); Sodium 140 mmol/L (136-145)
[2021-11-22] MEDS: hydrALAZINE 25 MG TAB PO SCH ×2 (08:29→20:46)
[2021-11-22] MEDS: Amoxicillin/Potassium Clav 500 MG TAB PO SCH ×2 (08:29→20:46)
[2021-11-22] MEDS: Insulin Glargine 30 UNITS/0.3 ML VIAL SC SCH ×2 (08:29→20:46)
[2021-11-22] MEDS: Furosemide 40 MG/4 ML VIAL SLOW IVP SCH (08:29)
[2021-11-22] MEDS: Aspirin 81 mg Enteric Coated Tablet PO SCH (08:29)
[2021-11-22] MEDS: Amiodarone 200 MG TAB PO SCH ×2 (08:29→20:48)
[2021-11-22] MEDS: Gabapentin 100 MG CAP PO SCH ×3 (08:29→20:47)
[2021-11-22] MEDS: Polyethylene Glycol 3350 17 GM Packet PO SCH (08:32)
[2021-11-22] MEDS ORDERED: HYDROcodone/Acetaminophen 5/325 mg Tablet PO PRN (17:20)
[2021-11-22] MEDS: Rosuvastatin 10 MG TAB PO SCH (20:46)
[2021-11-22] MEDS: Ondansetron ODT 4 MG TAB PO PRN (23:01)
[2021-11-23 04:49] LABS: Anion Gap 12 mmol/L (10-20); BUN (Urea Nitrogen) 62 mg/dL (9.8-20.1); Calc. Creatinine Clearance 35 mL/min (70-130); Calcium 9.2 mg/dL (7.8-10.44); Carbon Dioxide 27 mmol/L (23-31); Chloride 105 mmol/L (98-107); Estimated GFR 23; Glucose 182 mg/dL (80-115); Potassium 4.3 mmol/L (3.5-5.1); Sodium 140 mmol/L (136-145)
[2021-11-23] MEDS: Levothyroxine Sodium 75 MCG TAB PO SCH (05:30)
[2021-11-23] MEDS: Ondansetron ODT 4 MG TAB PO PRN ×2 (05:30→11:39)
[2021-11-23] MEDS: Aspirin 81 mg Enteric Coated Tablet PO SCH (08:58)
[2021-11-23] MEDS: Amiodarone 200 MG TAB PO SCH ×2 (08:58→21:35)
[2021-11-23] MEDS: Gabapentin 100 MG CAP PO SCH ×3 (08:58→21:35)
[2021-11-23] MEDS: Furosemide 40 MG/4 ML VIAL SLOW IVP SCH ×2 (08:58→09:55)
[2021-11-23] MEDS: Amoxicillin/Potassium Clav 500 MG TAB PO SCH ×2 (08:59→21:36)
[2021-11-23] MEDS: Insulin Glargine 30 UNITS/0.3 ML VIAL SC SCH ×3 (08:59→21:37)
[2021-11-23] MEDS: Polyethylene Glycol 3350 17 GM Packet PO SCH (08:59)
[2021-11-23] MEDS: hydrALAZINE 25 MG TAB PO SCH ×3 (08:59→21:35)
[2021-11-23] MEDS: Rosuvastatin 10 MG TAB PO SCH (21:35)
[2021-11-23] MEDS: Calcium Carbonate 500 MG ChewTAB PO PRN (23:29)
[2021-11-24] MEDS: Levothyroxine Sodium 75 MCG TAB PO SCH (05:17)
[2021-11-24 08:16] VITALS: TEMP 97.8
[2021-11-24] MEDS ORDERED: hydrALAZINE 25 MG TAB PO SCH (09:00)
[2021-11-24 09:16] LABS: Anion Gap 12 mmol/L (10-20); BUN (Urea Nitrogen) 55 mg/dL (9.8-20.1); Calc. Creatinine Clearance 36 mL/min (70-130); Calcium 9.3 mg/dL (7.8-10.44); Carbon Dioxide 29 mmol/L (23-31); Chloride 106 mmol/L (98-107); Estimated GFR 24; Glucose 205 mg/dL (80-115); Potassium 4.8 mmol/L (3.5-5.1); Sodium 142 mmol/L (136-145)
[2021-11-24] MEDS: Amoxicillin/Potassium Clav 500 MG TAB PO SCH (09:18)
[2021-11-24] MEDS: Furosemide 40 MG/4 ML VIAL SLOW IVP SCH (09:19)
[2021-11-24] MEDS: Aspirin 81 mg Enteric Coated Tablet PO SCH (09:20)
[2021-11-24] MEDS: Amiodarone 200 MG TAB PO SCH (09:20)
[2021-11-24] MEDS: Gabapentin 100 MG CAP PO SCH (09:20)
[2021-11-24] MEDS: Insulin Glargine 30 UNITS/0.3 ML VIAL SC SCH (09:21)
[2021-11-24] MEDS: Polyethylene Glycol 3350 17 GM Packet PO SCH (10:40)
[2021-11-24] MEDS ORDERED: Furosemide 20 MG TAB PO SCH ×2 (10:45→14:00)
[2021-11-24 14:39] VITALS: BP 143/67
[2021-11-30] MEDS ORDERED: Amiodarone 200 MG TAB PO SCH (09:00)
[2021-12-14] MEDS ORDERED: Amiodarone 200 MG TAB PO SCH (09:00)
== END 2021-11-24 16:00 | disposition home or self-care (01) | DRG 236 ==
LOC: SURG A 11-08 05:51 → CCU 11-08 10:45 → 2NO 11-10 10:19
PROVIDERS: ADMIT Thoracic Surgery (Cardiothoracic Vascular Surgery); ATTEND Thoracic Surgery (Cardiothoracic Vascular Surgery)
PROC: 02100Z9 Bypass Coronary Artery, One Artery from Left Internal Mammary, Open Approach (ICD-10-PCS; principal; 2021-11-08)
PROC: 021209W Bypass Coronary Artery, Three Arteries from Aorta with Autologous Venous Tissue, Open Approach (ICD-10-PCS; 2021-11-08)
PROC: 06BQ0ZZ Excision of Left Saphenous Vein, Open Approach (ICD-10-PCS; 2021-11-08)
PROC: 5A1221Z Performance of Cardiac Output, Continuous (ICD-10-PCS; 2021-11-08)
PROC: 02L70CK Occlusion of Left Atrial Appendage with Extraluminal Device, Open Approach (ICD-10-PCS; 2021-11-08)
PROC: 30233N1 Transfusion of Nonautologous Red Blood Cells into Peripheral Vein, Percutaneous Approach (ICD-10-PCS; 2021-11-08)
PROC: 3E033XZ Introduction of Vasopressor into Peripheral Vein, Percutaneous Approach (ICD-10-PCS; 2021-11-11)
DX: I25.10 Atherosclerotic heart disease of native coronary artery without angina pectoris (principal); N17.9 Acute kidney failure, unspecified; E87.2 Acidosis; N18.4 Chronic kidney disease, stage 4 (severe); Z20.822 Contact with and (suspected) exposure to COVID-19; K21.9 Gastro-esophageal reflux disease without esophagitis; M06.9 Rheumatoid arthritis, unspecified; I48.0 Paroxysmal atrial fibrillation; E89.0 Postprocedural hypothyroidism; E11.22 Type 2 diabetes mellitus with diabetic chronic kidney disease; I12.9 Hypertensive chronic kidney disease with stage 1 through stage 4 chronic kidney disease, or unspecified chronic kidney disease; N18.9 Chronic kidney disease, unspecified; D50.9 Iron deficiency anemia, unspecified; I13.10 Hypertensive heart and chronic kidney disease without heart failure, with stage 1 through stage 4 chronic kidney disease, or unspecified chronic kidney disease; E11.65 Type 2 diabetes mellitus with hyperglycemia; D63.1 Anemia in chronic kidney disease; E87.5 Hyperkalemia; R11.2 Nausea with vomiting, unspecified; T36.0X5A Adverse effect of penicillins, initial encounter; Z78.1 Physical restraint status; Z28.21 Immunization not carried out because of patient refusal; Z79.899 Other long term (current) drug therapy; Z79.82 Long term (current) use of aspirin; Z90.49 Acquired absence of other specified parts of digestive tract; Z90.710 Acquired absence of both cervix and uterus; Z98.890 Other specified postprocedural states; Z86.73 Personal history of transient ischemic attack (TIA), and cerebral infarction without residual deficits; Z88.8 Allergy status to other drugs, medicaments and biological substances
CPT/HCPCS: 36415; 36416; 36430; 71045; 80048; 81001; 82805; 82947; 85025; 85027; 85610; 85730; 86850; 86900; 86901; 87077; 87086; 87186; 87811; 93005; 93010; 93798; 94002; 97139; C1751; C1776; J0282; J0690; J1250; J1265; J1642; J1644; J1815; J1940; J2001; J2150; J2250; J2405; J2440; J2704; J2720; J3370; J3475; J3480; J3490; J7070; J7120; P9016; P9045; Q0162; Q4081; S0017; S0028

== ENCOUNTER 2021-11-06 10:59 | Outpatient (CLI) | payer MEDICARE | END 2021-11-06 11:00 | disposition home or self-care (01) | LOC: LABBT 10:59 | PROVIDERS: ATTEND Thoracic Surgery (Cardiothoracic Vascular Surgery) | DX: Z53.9 Procedure and treatment not carried out, unspecified reason (principal) | CPT/HCPCS: 80048; 85027; 86850; 86900; 86901; 87811 ==

== ENCOUNTER 2022-01-05 15:23 | Inpatient (IN) | payer OTHER, MEDICARE ==
[2022-01-05] MEDS ORDERED: Morphine 4 MG/ML VIAL ONE ×2 (16:09→18:24)
[2022-01-05 16:24] LABS: #Basophils 0.1 thou/uL (0.0-0.2); #Eosinphils 0.2 thou/uL (0.0-0.7); #Monocytes 0.4 thou/uL (0.11-0.59); #Neutrophils 3.4 thou/uL (1.40-6.50); %Basophils 1.4 % (0.0-1.0); %Eosinophils 4.7 % (0.0-10.0); %Monocytes 8.2 % (0.0-10.0); %Neutrophils 65.8 % (42.0-75.0); Hemoglobin 8.6 g/dL (12.0-16.0); Mean Corpuscular Hemoglobin 29.9 pg (27.0-31.0); Mean Corpuscular Volume 93.4 fl (78.0-98.0); Mean Platelet Volume 8.7 fL (7.4-10.4); Platelet Count 128 10x3/uL (130-400); RBC Distribution Width 14.2 % (11.5-14.5); Red Blood Cell (RBC) Count 2.87 mill/uL (4.20-5.40); White Blood Cell (WBC) Count 5.2 10x3/uL (4.8-10.8)
[2022-01-05 16:43] LABS: PTT 35.2 sec (22.9-36.1); Prothrombin Time 13.7 sec (12.0-14.7)
[2022-01-05 16:46] LABS: ALT (SGPT) 17 U/L (8-55); AST (SGOT) 28 U/L (5-34); Albumin 3.6 g/dL (3.4-4.8); Alkaline Phosphatase 76 U/L (40-110); Anion Gap 11 mmol/L (10-20); BUN (Urea Nitrogen) 37 mg/dL (9.8-20.1); Bilirubin, Total 0.4 mg/dL (0.2-1.2); CK (CPK) 224 U/L (29-168); Calc. Creatinine Clearance 0 mL/min (70-130); Calcium 9.1 mg/dL (7.8-10.44); Carbon Dioxide 26 mmol/L (23-31); Chloride 106 mmol/L (98-107); Estimated GFR 27; Globulin 3.2 g/dL (2.4-3.5); Glucose 180 mg/dL (80-115); Potassium 4.4 mmol/L (3.5-5.1); Protein, Total 6.8 g/dL (5.8-8.1); Sodium 139 mmol/L (136-145)
[2022-01-05] MEDS ORDERED: TETANUS, DIPHTHERIA TOX,ADULT (TDVAX) 0.5 ML VIAL IM ONE (18:03)
[2022-01-05] MEDS ORDERED: Morphine 2 MG/ML VIAL SLOW IVP PRN (18:03)
[2022-01-05] MEDS ORDERED: Dextrose 50% Abboject 50 ML SYRINGE SLOW IVP PRN (18:03)
[2022-01-05] MEDS ORDERED: Dextrose 5% in Water 1,000 ML IV PRN (18:03)
[2022-01-05] MEDS ORDERED: hydrALAZINE 20 MG/ML VIAL SLOW IVP PRN (18:03)
[2022-01-05] MEDS ORDERED: Ondansetron PF 4 MG/2 ML Vial IVP PRN (18:03)
[2022-01-05] MEDS ORDERED: Sodium Chloride 0.9% 1,000 ML IV SCH (18:15)
[2022-01-05 19:30] LABS: Magnesium 1.7 mg/dL (1.6-2.6); Phosphorus 3.9 mg/dL (2.3-4.7)
[2022-01-05] MEDS ORDERED: Cyclobenzaprine 10 MG TAB PO PRN (19:33)
[2022-01-05] MEDS ORDERED: Metoclopramide HCl 10 MG TAB PO PRN (19:47)
[2022-01-05] MEDS: Morphine 4 MG/ML VIAL SLOW IVP PRN (20:56)
[2022-01-05] MEDS: Sertraline 100 MG TAB PO SCH (20:59)
[2022-01-05] MEDS: Senokot S 8.6-50 MG TAB PO SCH (20:59)
[2022-01-05] MEDS: Melatonin 3 MG TAB PO SCH (20:59)
[2022-01-05] MEDS: Rosuvastatin 10 MG TAB PO SCH (20:59)
[2022-01-05] MEDS ORDERED: hydrALAZINE 25 MG TAB PO SCH (21:30)
[2022-01-05 22:24] LABS: Bacteria/HPF 4+ HPF (None Seen); Bilirubin Negative (Negative); Blood, Urine Negative (Negative); Clarity Turbid (Clear); Glucose, Urine (Dipstick) Normal (Negative); Ketone, Urine Negative (Negative); Leukocyte 500 Leu/uL (Negative); Nitrite Negative (Negative); Protein, Urine (Dipstick) 200 mg/dL (Neg-Trace); RBC/HPF 0-3 HPF (0-3); Specific Gravity, Urine 1.013 (1.002-1.036); Squamous Epithelial 0-3 HPF (0-3); Urobilinogen Normal mg/dL (Less than 2); WBC/HPF Greater than 50 HPF (0-3)
[2022-01-05 22:28] LABS: Urine Culture Reflex Yes Yes
[2022-01-05 23:04] LABS: SARS-CoV-2 NAA Rapid Test Not Detected (NotDetected)
[2022-01-05 23:22] VITALS: BMI 32.1
[2022-01-06] MEDS: Acetaminophen/Codeine 30-300mg Tablet PO SCH ×4 (00:22→18:27)
[2022-01-06] MEDS: Morphine 4 MG/ML VIAL SLOW IVP PRN ×2 (03:03→09:30)
[2022-01-06] MEDS: cefTRIAXone\\ROCEPHIN 2 GM in Sodium Chloride 0.9% 100 ML IVPB SCH (05:45)
[2022-01-06 06:02] LABS: #Basophils 0.1 thou/uL (0.0-0.2); #Eosinphils 0.3 thou/uL (0.0-0.7); #Lymphocytes 1.1 thou/uL (1.20-3.40); #Monocytes 0.6 thou/uL (0.11-0.59); #Neutrophils 5.1 thou/uL (1.40-6.50); %Basophils 0.9 % (0.0-1.0); %Eosinophils 3.9 % (0.0-10.0); %Lymphocytes 15.7 % (21.0-51.0); %Monocytes 7.9 % (0.0-10.0); %Neutrophils 71.6 % (42.0-75.0); Hemoglobin 7.8 g/dL (12.0-16.0); Mean Corpuscular HGB CONC 32.2 g/dL (32.0-36.0); Mean Corpuscular Hemoglobin 30.4 pg (27.0-31.0); Mean Corpuscular Volume 94.3 fl (78.0-98.0); Mean Platelet Volume 8.8 fL (7.4-10.4); Platelet Count 120 10x3/uL (130-400); RBC Distribution Width 14.2 % (11.5-14.5); Red Blood Cell (RBC) Count 2.58 mill/uL (4.20-5.40); White Blood Cell (WBC) Count 7.1 10x3/uL (4.8-10.8)
[2022-01-06 06:10] LABS: INR-International Normal Ratio 1.1; Prothrombin Time 14.2 sec (12.0-14.7)
[2022-01-06 06:11] LABS: PTT 35.9 sec (22.9-36.1)
[2022-01-06 06:23] LABS: Anion Gap 12 mmol/L (10-20); BUN (Urea Nitrogen) 40 mg/dL (9.8-20.1); Calc. Creatinine Clearance 34 mL/min (70-130); Calcium 8.8 mg/dL (7.8-10.44); Carbon Dioxide 25 mmol/L (23-31); Chloride 107 mmol/L (98-107); Estimated GFR 24; Glucose 190 mg/dL (80-115); Potassium 4.2 mmol/L (3.5-5.1); Sodium 140 mmol/L (136-145)
[2022-01-06] MEDS ORDERED: Sodium Chloride 0.9% 1,000 ML IV SCH (07:07)
[2022-01-06] MEDS ORDERED: hydrALAZINE 25 MG TAB PO SCH ×4 (09:00→17:15)
[2022-01-06] MEDS: Calcitriol 0.25 MCG CAP PO SCH (09:12)
[2022-01-06] MEDS: Levothyroxine Sodium 75 MCG TAB PO SCH (09:12)
[2022-01-06] MEDS: Folic Acid 1 MG TAB PO SCH (09:12)
[2022-01-06] MEDS: Senokot S 8.6-50 MG TAB PO SCH ×2 (09:37→22:32)
[2022-01-06] MEDS: Polyethylene Glycol 3350 17 GM Packet PO SCH (09:37)
[2022-01-06] MEDS ORDERED: Ondansetron HCl/PF 4 MG/2 ML Vial IVP PRN (15:35)
[2022-01-06] MEDS ORDERED: Ketamine 50 MG/ML (10ML VIAL) ONE (15:53)
[2022-01-06] MEDS ORDERED: fentaNYL PF 100 MCG/2 ML SYRINGE ONE (15:53)
[2022-01-06] MEDS ORDERED: Sodium Chloride 0.9% 100 ML ONE (15:58)
[2022-01-06] MEDS ORDERED: CEFAZOLIN 1 GM VIAL ONE (15:58)
[2022-01-06] MEDS ORDERED: Phenylephrine 10 MG/ML VIAL ONE (16:01)
[2022-01-06] MEDS ORDERED: HYDROcodone/Acetaminophen 10/325 mg Tablet PO PRN ×2 (16:10)
[2022-01-06] MEDS ORDERED: Morphine 4 MG/ML VIAL SLOW IVP PRN (16:10)
[2022-01-06] MEDS ORDERED: TETANUS, DIPHTHERIA TOX,ADULT (TDVAX) 0.5 ML VIAL IM ONE (16:10)
[2022-01-06] MEDS ORDERED: Communication Order-Pharmacy FS SCH (16:15)
[2022-01-06] MEDS ORDERED: diphenhydrAMINE 50 MG/ML VIAL ONE (16:30)
[2022-01-06] MEDS ORDERED: Ondansetron PF 4 MG/2 ML Vial ONE (16:30)
[2022-01-06] MEDS ORDERED: Rocuronium Bromide 10 MG/ML (10ML VIAL) ONE (16:30)
[2022-01-06] MEDS ORDERED: Metoclopramide HCl 10 MG/2 ML VIAL ONE (16:30)
[2022-01-06] MEDS ORDERED: PROPOFOL 200 MG/20 ML VIAL ONE (16:30)
[2022-01-06] MEDS ORDERED: Tranexamic Acid 1,000 MG/10 ML VIAL ONE ×2 (16:54→19:56)
[2022-01-06] MEDS ORDERED: Neomycin-Polymyxin 1 ML AMP ONE (16:57)
[2022-01-06] MEDS ORDERED: SUGAMMADEX SODIUM 200 MG/2 ML VIAL ONE ×2 (17:46→18:00)
[2022-01-06] MEDS ORDERED: Furosemide 20 MG/2 ML VIAL ONE (19:14)
[2022-01-06 20:33] LABS: #Basophils 0.1 thou/uL (0.0-0.2); #Eosinphils 0.3 thou/uL (0.0-0.7); #Lymphocytes 0.9 thou/uL (1.20-3.40); #Neutrophils 12.3 thou/uL (1.40-6.50); %Basophils 0.4 % (0.0-1.0); %Lymphocytes 5.9 % (21.0-51.0); %Monocytes 7.1 % (0.0-10.0); %Neutrophils 84.5 % (42.0-75.0); Hemoglobin 9.8 g/dL (12.0-16.0); Mean Corpuscular HGB CONC 31.5 g/dL (32.0-36.0); Mean Corpuscular Hemoglobin 29.1 pg (27.0-31.0); Mean Corpuscular Volume 92.2 fl (78.0-98.0); Mean Platelet Volume 8.9 fL (7.4-10.4); Platelet Count 112 10x3/uL (130-400); RBC Distribution Width 16.1 % (11.5-14.5); Red Blood Cell (RBC) Count 3.36 mill/uL (4.20-5.40); White Blood Cell (WBC) Count 14.6 10x3/uL (4.8-10.8)
[2022-01-06 20:52] LABS: Anion Gap 13 mmol/L (10-20); BUN (Urea Nitrogen) 40 mg/dL (9.8-20.1); Calc. Creatinine Clearance 34 mL/min (70-130); Calcium 8.5 mg/dL (7.8-10.44); Carbon Dioxide 23 mmol/L (23-31); Chloride 111 mmol/L (98-107); Estimated GFR 24; Glucose 212 mg/dL (80-115); Magnesium 1.6 mg/dL (1.6-2.6); Phosphorus 3.9 mg/dL (2.3-4.7); Potassium 4.4 mmol/L (3.5-5.1); Sodium 143 mmol/L (136-145)
[2022-01-06 20:57] LABS: INR-International Normal Ratio 1.1; Prothrombin Time 14.7 sec (12.0-14.7)
[2022-01-06 20:58] LABS: PTT 34.7 sec (22.9-36.1)
[2022-01-06 21:34] LABS: Troponin I 0.027 ng/mL (< 0.028)
[2022-01-06] MEDS: CEFAZOLIN 2 GM in Sodium Chloride 0.9% 100 ML IVPB SCH (22:15)
[2022-01-06] MEDS: Ascorbic Acid 500 mg Chewable Tablet PO SCH (22:29)
[2022-01-06] MEDS: Aspirin 81 mg Enteric Coated Tablet PO SCH (22:30)
[2022-01-06] MEDS: Sertraline 100 MG TAB PO SCH (22:30)
[2022-01-06] MEDS: Melatonin 3 MG TAB PO SCH (22:31)
[2022-01-06] MEDS: Rosuvastatin 10 MG TAB PO SCH (22:38)
[2022-01-07] MEDS ORDERED: Sodium Bicarbonate 100 MEQ in Dextrose 5% in Water 1,000 ML IV SCH ×4 (00:15→04:00)
[2022-01-07] MEDS: Acetaminophen/Codeine 30-300mg Tablet PO SCH ×5 (00:24→23:08)
[2022-01-07 03:16] LABS: #Eosinphils 0.1 thou/uL (0.0-0.7); #Lymphocytes 0.5 thou/uL (1.20-3.40); #Monocytes 0.8 thou/uL (0.11-0.59); %Basophils 0.1 % (0.0-1.0); %Eosinophils 0.7 % (0.0-10.0); %Lymphocytes 4.8 % (21.0-51.0); %Neutrophils 87.5 % (42.0-75.0); Hemoglobin 9.2 g/dL (12.0-16.0); Mean Corpuscular HGB CONC 31.5 g/dL (32.0-36.0); Mean Corpuscular Hemoglobin 28.8 pg (27.0-31.0); Mean Corpuscular Volume 91.4 fl (78.0-98.0); Platelet Count 103 10x3/uL (130-400); RBC Distribution Width 16.5 % (11.5-14.5); Red Blood Cell (RBC) Count 3.21 mill/uL (4.20-5.40); White Blood Cell (WBC) Count 11.4 10x3/uL (4.8-10.8)
[2022-01-07 03:37] LABS: Anion Gap 14 mmol/L (10-20); BUN (Urea Nitrogen) 43 mg/dL (9.8-20.1); Calc. Creatinine Clearance 31 mL/min (70-130); Calcium 8.6 mg/dL (7.8-10.44); Carbon Dioxide 22 mmol/L (23-31); Chloride 109 mmol/L (98-107); Estimated GFR 22; Glucose 224 mg/dL (80-115); Magnesium 1.8 mg/dL (1.6-2.6); Phosphorus 4.2 mg/dL (2.3-4.7); Potassium 4.4 mmol/L (3.5-5.1); Sodium 141 mmol/L (136-145)
[2022-01-07] MEDS: cefTRIAXone\\ROCEPHIN 2 GM in Sodium Chloride 0.9% 100 ML IVPB SCH (04:31)
[2022-01-07] MEDS: Insulin Regular 300 UNITS/3 ML VIAL SC PRN ×3 (05:10→16:50)
[2022-01-07] MEDS: CEFAZOLIN 2 GM in Sodium Chloride 0.9% 100 ML IVPB SCH (05:13)
[2022-01-07] MEDS ORDERED: Furosemide 40 MG TAB PO SCH (07:30)
[2022-01-07] MEDS: Calcitriol 0.25 MCG CAP PO SCH (08:15)
[2022-01-07] MEDS: Ferrous Sulfate 325 MG TAB PO SCH ×2 (08:15→16:49)
[2022-01-07] MEDS: Aspirin 81 mg Enteric Coated Tablet PO SCH (08:15)
[2022-01-07] MEDS: Levothyroxine Sodium 75 MCG TAB PO SCH (08:15)
[2022-01-07] MEDS: Senokot S 8.6-50 MG TAB PO SCH ×2 (08:15→20:35)
[2022-01-07] MEDS: Ascorbic Acid 500 mg Chewable Tablet PO SCH ×2 (08:16→20:34)
[2022-01-07] MEDS: Folic Acid 1 MG TAB PO SCH (08:16)
[2022-01-07] MEDS: Polyethylene Glycol 3350 17 GM Packet PO SCH (08:16)
[2022-01-07] MEDS ORDERED: hydrALAZINE 25 MG TAB PO SCH (09:00)
[2022-01-07] MEDS ORDERED: TETANUS, DIPHTHERIA TOX,ADULT (TDVAX) 0.5 ML VIAL IM ONE (09:00)
[2022-01-07] MEDS: Melatonin 3 MG TAB PO SCH (20:34)
[2022-01-07] MEDS: Sertraline 100 MG TAB PO SCH (20:34)
[2022-01-07] MEDS: Rosuvastatin 10 MG TAB PO SCH (20:34)
[2022-01-08 04:35] LABS: Anion Gap 15 mmol/L (10-20); BUN (Urea Nitrogen) 51 mg/dL (9.8-20.1); Calc. Creatinine Clearance 27 mL/min (70-130); Calcium 9.3 mg/dL (7.8-10.44); Carbon Dioxide 21 mmol/L (23-31); Chloride 106 mmol/L (98-107); Estimated GFR 18; Glucose 174 mg/dL (80-115); Magnesium 1.8 mg/dL (1.6-2.6); Phosphorus 4.2 mg/dL (2.3-4.7); Potassium 4.7 mmol/L (3.5-5.1); Sodium 137 mmol/L (136-145); Troponin I 0.041 ng/mL (< 0.028)
[2022-01-08] MEDS: cefTRIAXone\\ROCEPHIN 2 GM in Sodium Chloride 0.9% 100 ML IVPB SCH (05:19)
[2022-01-08] MEDS: Acetaminophen/Codeine 30-300mg Tablet PO SCH ×4 (05:19→21:15)
[2022-01-08 08:04] LABS: #Eosinphils 0.2 thou/uL (0.0-0.7); #Lymphocytes 1.2 thou/uL (1.20-3.40); #Monocytes 1.3 thou/uL (0.11-0.59); #Neutrophils 9.9 thou/uL (1.40-6.50); %Basophils 0.3 % (0.0-1.0); %Eosinophils 1.3 % (0.0-10.0); %Lymphocytes 9.5 % (21.0-51.0); %Monocytes 10.4 % (0.0-10.0); %Neutrophils 78.6 % (42.0-75.0); Hemoglobin 8.7 g/dL (12.0-16.0); Mean Corpuscular HGB CONC 30.6 g/dL (32.0-36.0); Mean Corpuscular Hemoglobin 28.5 pg (27.0-31.0); Mean Corpuscular Volume 93.2 fl (78.0-98.0); Mean Platelet Volume 9.6 fL (7.4-10.4); Platelet Count 86 10x3/uL (130-400); RBC Distribution Width 16.5 % (11.5-14.5); Red Blood Cell (RBC) Count 3.07 mill/uL (4.20-5.40); White Blood Cell (WBC) Count 12.6 10x3/uL (4.8-10.8)
[2022-01-08] MEDS: Ascorbic Acid 500 mg Chewable Tablet PO SCH ×2 (09:10→20:45)
[2022-01-08] MEDS: Ferrous Sulfate 325 MG TAB PO SCH ×2 (09:10→15:55)
[2022-01-08] MEDS: Sodium Chloride 0.9% 1,000 ML IV SCH ×2 (09:10→22:14)
[2022-01-08] MEDS: Polyethylene Glycol 3350 17 GM Packet PO SCH (09:10)
[2022-01-08] MEDS: Folic Acid 1 MG TAB PO SCH (09:10)
[2022-01-08] MEDS: Levothyroxine Sodium 75 MCG TAB PO SCH (09:10)
[2022-01-08] MEDS: Calcitriol 0.25 MCG CAP PO SCH (09:10)
[2022-01-08] MEDS: Senokot S 8.6-50 MG TAB PO SCH ×2 (09:10→20:45)
[2022-01-08] MEDS ORDERED: Morphine 4 MG/ML VIAL SLOW IVP PRN (09:59)
[2022-01-08 14:08] LABS: Troponin I 0.048 ng/mL (< 0.028)
[2022-01-08] MEDS: Melatonin 3 MG TAB PO SCH (20:45)
[2022-01-08] MEDS: Sertraline 100 MG TAB PO SCH (20:45)
[2022-01-08] MEDS: Rosuvastatin 10 MG TAB PO SCH (20:45)
[2022-01-09] MEDS ORDERED: Acetaminophen 500 MG TAB PO PRN (00:28)
[2022-01-09] MEDS: Acetaminophen 500 MG TAB PO SCH ×5 (01:40→20:15)
[2022-01-09] MEDS: cefTRIAXone\\ROCEPHIN 2 GM in Sodium Chloride 0.9% 100 ML IVPB SCH (05:56)
[2022-01-09 06:44] LABS: Anion Gap 13 mmol/L (10-20); BUN (Urea Nitrogen) 53 mg/dL (9.8-20.1); Calc. Creatinine Clearance 29 mL/min (70-130); Calcium 9.2 mg/dL (7.8-10.44); Carbon Dioxide 23 mmol/L (23-31); Chloride 106 mmol/L (98-107); Estimated GFR 20; Glucose 148 mg/dL (80-115); Magnesium 1.9 mg/dL (1.6-2.6); Phosphorus 4.5 mg/dL (2.3-4.7); Potassium 4.2 mmol/L (3.5-5.1); Sodium 138 mmol/L (136-145)
[2022-01-09] MEDS: Ferrous Sulfate 325 MG TAB PO SCH ×2 (08:54→16:53)
[2022-01-09] MEDS: Calcitriol 0.25 MCG CAP PO SCH (08:55)
[2022-01-09] MEDS: Levothyroxine Sodium 75 MCG TAB PO SCH (08:55)
[2022-01-09] MEDS: Folic Acid 1 MG TAB PO SCH (08:55)
[2022-01-09] MEDS: Senokot S 8.6-50 MG TAB PO SCH ×2 (08:55→20:15)
[2022-01-09] MEDS: Polyethylene Glycol 3350 17 GM Packet PO SCH (08:57)
[2022-01-09 09:25] LABS: #Eosinphils 0.5 thou/uL (0.0-0.7); #Lymphocytes 0.9 thou/uL (1.20-3.40); #Neutrophils 8.9 thou/uL (1.40-6.50); %Basophils 0.4 % (0.0-1.0); %Eosinophils 4.7 % (0.0-10.0); %Lymphocytes 8.1 % (21.0-51.0); %Monocytes 8.6 % (0.0-10.0); %Neutrophils 78.2 % (42.0-75.0); Mean Corpuscular HGB CONC 30.7 g/dL (32.0-36.0); Mean Corpuscular Hemoglobin 28.9 pg (27.0-31.0); Mean Corpuscular Volume 94.1 fl (78.0-98.0); Mean Platelet Volume 9.2 fL (7.4-10.4); Platelet Count 106 10x3/uL (130-400); Red Blood Cell (RBC) Count 2.78 mill/uL (4.20-5.40); White Blood Cell (WBC) Count 11.4 10x3/uL (4.8-10.8)
[2022-01-09] MEDS: Ascorbic Acid 500 mg Chewable Tablet PO SCH ×2 (10:45→20:13)
[2022-01-09] MEDS: Heparin 5,000 UNITS/ML VIAL SC SCH ×2 (10:45→20:16)
[2022-01-09 12:39] LABS: #Eosinphils 0.5 thou/uL (0.0-0.7); #Lymphocytes 1.1 thou/uL (1.20-3.40); #Monocytes 0.8 thou/uL (0.11-0.59); #Neutrophils 7.6 thou/uL (1.40-6.50); %Basophils 0.4 % (0.0-1.0); %Lymphocytes 10.8 % (21.0-51.0); %Monocytes 8.2 % (0.0-10.0); %Neutrophils 75.6 % (42.0-75.0); Hemoglobin 7.9 g/dL (12.0-16.0); Mean Corpuscular HGB CONC 31.7 g/dL (32.0-36.0); Mean Corpuscular Hemoglobin 30.1 pg (27.0-31.0); Mean Corpuscular Volume 95.1 fl (78.0-98.0); Mean Platelet Volume 9.8 fL (7.4-10.4); Platelet Count 94 10x3/uL (130-400); RBC Distribution Width 16.4 % (11.5-14.5); Red Blood Cell (RBC) Count 2.62 mill/uL (4.20-5.40); White Blood Cell (WBC) Count 10.1 10x3/uL (4.8-10.8)
[2022-01-09] MEDS: Sodium Chloride 0.9% 1,000 ML IV SCH (16:53)
[2022-01-09] MEDS: Insulin Regular 300 UNITS/3 ML VIAL SC PRN (17:15)
[2022-01-09] MEDS: Sertraline 100 MG TAB PO SCH (20:15)
[2022-01-09] MEDS: Melatonin 3 MG TAB PO SCH (20:16)
[2022-01-09] MEDS: Rosuvastatin 10 MG TAB PO SCH (20:16)
[2022-01-10] MEDS: Acetaminophen 500 MG TAB PO SCH ×4 (01:34→20:28)
[2022-01-10] MEDS: Sodium Chloride 0.9% 1,000 ML IV SCH (05:11)
[2022-01-10] MEDS: cefTRIAXone\\ROCEPHIN 2 GM in Sodium Chloride 0.9% 100 ML IVPB SCH (05:11)
[2022-01-10 06:51] LABS: #Eosinphils 0.5 thou/uL (0.0-0.7); #Monocytes 0.7 thou/uL (0.11-0.59); #Neutrophils 6.5 thou/uL (1.40-6.50); %Basophils 0.3 % (0.0-1.0); %Lymphocytes 10.9 % (21.0-51.0); %Monocytes 8.4 % (0.0-10.0); %Neutrophils 74.5 % (42.0-75.0); Hemoglobin 7.3 g/dL (12.0-16.0); Mean Corpuscular HGB CONC 30.6 g/dL (32.0-36.0); Mean Corpuscular Volume 94.7 fl (78.0-98.0); Mean Platelet Volume 8.7 fL (7.4-10.4); Platelet Count 115 10x3/uL (130-400); RBC Distribution Width 15.8 % (11.5-14.5); Red Blood Cell (RBC) Count 2.52 mill/uL (4.20-5.40); White Blood Cell (WBC) Count 8.8 10x3/uL (4.8-10.8)
[2022-01-10 07:09] LABS: Anion Gap 11 mmol/L (10-20); BUN (Urea Nitrogen) 50 mg/dL (9.8-20.1); Calc. Creatinine Clearance 29 mL/min (70-130); Carbon Dioxide 24 mmol/L (23-31); Chloride 108 mmol/L (98-107); Estimated GFR 20; Glucose 159 mg/dL (80-115); Phosphorus 4.1 mg/dL (2.3-4.7); Potassium 4.1 mmol/L (3.5-5.1); Sodium 139 mmol/L (136-145)
[2022-01-10] MEDS: Polyethylene Glycol 3350 17 GM Packet PO SCH (13:30)
[2022-01-10] MEDS: Levothyroxine Sodium 75 MCG TAB PO SCH (13:30)
[2022-01-10] MEDS: Amlodipine 5 MG TAB PO SCH (13:30)
[2022-01-10] MEDS: Calcitriol 0.25 MCG CAP PO SCH (13:30)
[2022-01-10] MEDS: Folic Acid 1 MG TAB PO SCH (13:30)
[2022-01-10] MEDS: Ferrous Sulfate 325 MG TAB PO SCH ×2 (13:30→17:13)
[2022-01-10] MEDS: Ascorbic Acid 500 mg Chewable Tablet PO SCH ×2 (13:30→17:11)
[2022-01-10] MEDS: Senokot S 8.6-50 MG TAB PO SCH ×2 (13:30→20:31)
[2022-01-10] MEDS: Heparin 5,000 UNITS/ML VIAL SC SCH ×2 (13:35→20:30)
[2022-01-10] MEDS ORDERED: Furosemide 20 MG/2 ML VIAL SLOW IVP SCH (16:30)
[2022-01-10] MEDS: Insulin Regular 300 UNITS/3 ML VIAL SC PRN ×2 (17:42→20:49)
[2022-01-10] MEDS: Melatonin 3 MG TAB PO SCH (20:30)
[2022-01-10] MEDS: Rosuvastatin 10 MG TAB PO SCH (20:31)
[2022-01-10] MEDS: Sertraline 100 MG TAB PO SCH (20:31)
[2022-01-11] MEDS: Acetaminophen 500 MG TAB PO SCH ×3 (02:06→12:18)
[2022-01-11 06:02] LABS: #Eosinphils 0.7 thou/uL (0.0-0.7); #Lymphocytes 0.9 thou/uL (1.20-3.40); #Monocytes 0.7 thou/uL (0.11-0.59); #Neutrophils 6.7 thou/uL (1.40-6.50); %Basophils 0.5 % (0.0-1.0); %Eosinophils 7.5 % (0.0-10.0); %Lymphocytes 9.6 % (21.0-51.0); %Monocytes 8.2 % (0.0-10.0); %Neutrophils 74.2 % (42.0-75.0); Hemoglobin 9.1 g/dL (12.0-16.0); Mean Corpuscular HGB CONC 32.6 g/dL (32.0-36.0); Mean Corpuscular Hemoglobin 30.3 pg (27.0-31.0); Mean Corpuscular Volume 93.2 fl (78.0-98.0); Mean Platelet Volume 8.1 fL (7.4-10.4); Platelet Count 136 10x3/uL (130-400); RBC Distribution Width 15.3 % (11.5-14.5)
[2022-01-11] MEDS: cefTRIAXone\\ROCEPHIN 2 GM in Sodium Chloride 0.9% 100 ML IVPB SCH (06:22)
[2022-01-11 06:25] LABS: Anion Gap 10 mmol/L (10-20); BUN (Urea Nitrogen) 46 mg/dL (9.8-20.1); Calc. Creatinine Clearance 33 mL/min (70-130); Calcium 9.6 mg/dL (7.8-10.44); Carbon Dioxide 27 mmol/L (23-31); Chloride 111 mmol/L (98-107); Estimated GFR 24; Glucose 172 mg/dL (80-115); Magnesium 1.9 mg/dL (1.6-2.6); Phosphorus 3.3 mg/dL (2.3-4.7); Potassium 4.1 mmol/L (3.5-5.1); Sodium 144 mmol/L (136-145)
[2022-01-11] MEDS ORDERED: PHOS-NAK 1 PKT PACK PO SCH (08:00)
[2022-01-11] MEDS: Folic Acid 1 MG TAB PO SCH (08:37)
[2022-01-11] MEDS: Ferrous Sulfate 325 MG TAB PO SCH (08:37)
[2022-01-11] MEDS: Polyethylene Glycol 3350 17 GM Packet PO SCH (08:37)
[2022-01-11] MEDS: Amlodipine 5 MG TAB PO SCH (08:37)
[2022-01-11] MEDS: Levothyroxine Sodium 75 MCG TAB PO SCH (08:37)
[2022-01-11] MEDS: Heparin 5,000 UNITS/ML VIAL SC SCH (08:37)
[2022-01-11] MEDS: Senokot S 8.6-50 MG TAB PO SCH (08:37)
[2022-01-11] MEDS: Calcitriol 0.25 MCG CAP PO SCH (08:37)
[2022-01-11] MEDS: Ascorbic Acid 500 mg Chewable Tablet PO SCH (08:57)
[2022-01-11] MEDS ORDERED: Furosemide 40 MG TAB PO SCH (09:00)
[2022-01-11] MEDS: Insulin Regular 300 UNITS/3 ML VIAL SC PRN (11:35)
[2022-01-11] MEDS ORDERED: hydrALAZINE 20 MG/ML VIAL SLOW IVP PRN (12:04)
[2022-01-11] MEDS ORDERED: Amlodipine 5 MG TAB PO SCH (12:15)
[2022-01-11 12:32] VITALS: TEMP 98.3
[2022-01-11] MEDS ORDERED: hydrALAZINE 25 MG TAB PO SCH ×2 (15:00→21:00)
[2022-01-11 15:27] VITALS: BP 175/78
[2022-01-12] MEDS ORDERED: Amlodipine 5 MG TAB PO SCH (09:00)
== END 2022-01-11 15:40 | DRG 522 ==
LOC: ERS 15:23 → SURG A 18:03 → CCU 01-06 21:19 → IMCU/EMU 01-07 06:33 → SURG A 01-08 15:05
PROVIDERS: ADMIT Surgery; ATTEND Surgery
PROC: 0SRS01A Replacement of Left Hip Joint, Femoral Surface with Metal Synthetic Substitute, Uncemented, Open Approach (ICD-10-PCS; principal; 2022-01-06)
PROC: 30233N1 Transfusion of Nonautologous Red Blood Cells into Peripheral Vein, Percutaneous Approach (ICD-10-PCS; 2022-01-06)
DX: S72.012A Unspecified intracapsular fracture of left femur, initial encounter for closed fracture (principal); N39.0 Urinary tract infection, site not specified; N17.9 Acute kidney failure, unspecified; D62 Acute posthemorrhagic anemia; N18.4 Chronic kidney disease, stage 4 (severe); Z20.822 Contact with and (suspected) exposure to COVID-19; W01.0XXA Fall on same level from slipping, tripping and stumbling without subsequent striking against object, initial encounter; G43.909 Migraine, unspecified, not intractable, without status migrainosus; M19.90 Unspecified osteoarthritis, unspecified site; G25.81 Restless legs syndrome; E03.9 Hypothyroidism, unspecified; K21.9 Gastro-esophageal reflux disease without esophagitis; E78.5 Hyperlipidemia, unspecified; E89.0 Postprocedural hypothyroidism; F32.A Depression, unspecified; F41.9 Anxiety disorder, unspecified; F43.10 Post-traumatic stress disorder, unspecified; I12.9 Hypertensive chronic kidney disease with stage 1 through stage 4 chronic kidney disease, or unspecified chronic kidney disease; B96.20 Unspecified Escherichia coli [E. coli] as the cause of diseases classified elsewhere; E11.22 Type 2 diabetes mellitus with diabetic chronic kidney disease; Z88.2 Allergy status to sulfonamides; Z88.8 Allergy status to other drugs, medicaments and biological substances; Z88.1 Allergy status to other antibiotic agents; Y92.002 Bathroom of unspecified non-institutional (private) residence as the place of occurrence of the external cause; Z90.49 Acquired absence of other specified parts of digestive tract; Z86.73 Personal history of transient ischemic attack (TIA), and cerebral infarction without residual deficits; Z90.710 Acquired absence of both cervix and uterus; Z95.1 Presence of aortocoronary bypass graft; Z79.899 Other long term (current) drug therapy; Z79.890 Hormone replacement therapy; Z79.4 Long term (current) use of insulin
CPT/HCPCS: 36415; 36416; 36430; 70450; 71045; 72125; 72170; 74230; 76770; 80048; 80053; 81001; 82533; 82550; 83735; 83880; 84100; 84484; 85025; 85384; 85610; 85730; 86850; 86900; 86901; 87077; 87086; 87186; 93005; 93306; 94640; 96374; 96376; C1776; J0360; J0690; J0696; J1200; J1644; J1815; J1940; J2270; J2370; J2405; J2704; J2765; J3490; J7050; J7070; J7620; P9016; P9045; U0002

== ENCOUNTER 2022-05-24 19:30 | Outpatient (CLI) | payer MEDICARE | END 2022-05-24 19:31 | disposition home or self-care (01) | LOC: SLEEPLAB 19:30 | PROVIDERS: ATTEND Family Medicine | DX: G47.33 Obstructive sleep apnea (adult) (pediatric) (principal); G25.89 Other specified extrapyramidal and movement disorders | CPT/HCPCS: 95811 ==

== ENCOUNTER 2022-12-20 09:32 | Outpatient (CLI) | payer MEDICARE | END 2022-12-20 09:33 | disposition home or self-care (01) | LOC: BICMAMMO 09:32 | PROVIDERS: ATTEND Family Medicine | DX: N63.20 Unspecified lump in the left breast, unspecified quadrant (principal) | CPT/HCPCS: 76642; 77066; G0279 ==

== ENCOUNTER 2023-11-09 09:18 | Inpatient (IN) | payer MEDICARE ==
[2023-11-09] MEDS ORDERED: Glucagon 1 MG/ML KIT IM PRN (09:47)
[2023-11-09] MEDS ORDERED: Dextrose 5% in Water 1,000 ML IV PRN (09:47)
[2023-11-09] MEDS ORDERED: Dextrose 50% Abboject 50 ML SYRINGE SLOW IVP PRN (09:47)
[2023-11-09] MEDS ORDERED: Insulin Lispro 100 UNIT/ML 10 ML VIAL SC PRN ×2 (09:50)
[2023-11-09] MEDS ORDERED: Heparin 10,000 UNITS/ 10 ML VIAL ONE (09:52)
[2023-11-09 10:35] LABS: Magnesium 1.7 mg/dL (1.6-2.6); Phosphorus 4.3 mg/dL (2.3-4.7)
[2023-11-09] MEDS ORDERED: Ipratropium/Albuterol 3 ML NEB NEB PRN (13:15)
[2023-11-09] MEDS ORDERED: ALPRAZolam 0.25 MG TAB PO PRN (13:15)
[2023-11-09] MEDS ORDERED: Guaifenesin DM 100-10/5 ML UDCUP PO PRN (13:15)
[2023-11-09] MEDS ORDERED: Acetaminophen 325 MG TAB PO PRN (13:15)
[2023-11-09] MEDS: Ipratropium/Albuterol 3 ML NEB NEB SCH (14:07)
[2023-11-09] MEDS: Heparin 5,000 UNITS/ML VIAL SC SCH (16:02)
[2023-11-09] MEDS: hydrALAZINE 25 MG TAB PO SCH (16:02)
[2023-11-09] MEDS: Sodium Bicarbonate Tab 325 MG TAB PO SCH (16:03)
[2023-11-09] MEDS: Benzonatate 100 MG CAP PO SCH (16:03)
[2023-11-09] MEDS: Carvedilol 6.25 MG TAB PO SCH (16:15)
[2023-11-09] MEDS: cefTRIAXone\\ROCEPHIN 2 GM in Sodium Chloride 0.9% 100 ML IVPB SCH (17:42)
[2023-11-09] MEDS: Azithromycin 500 MG in Sodium Chloride 0.9% 250 ML 250 ML IVPB SCH (17:42)
[2023-11-09] MEDS: Gabapentin 100 MG CAP PO SCH (17:50)
[2023-11-09] MEDS ORDERED: Non-Formulary Item 1 EACH (Albuterol 200 PUFF Inh) INH SCH (19:00)
[2023-11-09] MEDS: guaiFENesin/Codeine 200 mg/20 mg 10 ml Cup PO SCH (21:05)
[2023-11-09] MEDS: Primidone 50 MG TAB PO SCH (21:05)
[2023-11-09] MEDS: Ranolazine ER 500 MG TAB PO SCH (21:07)
[2023-11-09] MEDS: Amlodipine 5 MG TAB PO SCH (21:07)
[2023-11-09] MEDS: CO Q-10 CAPSULE 100 MG PO SCH (21:07)
[2023-11-09] MEDS: Pantoprazole DR 40 MG TAB PO SCH (21:07)
[2023-11-09] MEDS: Rosuvastatin 10 MG TAB PO SCH (21:11)
[2023-11-10] MEDS: Levothyroxine Sodium 75 MCG TAB PO SCH (06:13)
[2023-11-10] MEDS: Aspirin 81 mg Enteric Coated Tablet PO SCH (08:37)
[2023-11-10] MEDS: Escitalopram Oxalate 10 mg Tablet PO SCH (08:38)
[2023-11-10] MEDS: Folic Acid 1 MG TAB PO SCH (08:38)
[2023-11-10] MEDS: Isosorbide Mononitrate 30 MG ER.TAB PO SCH (08:40)
[2023-11-10] MEDS: Polyethylene Glycol 3350 17 GM Packet PO SCH (08:40)
[2023-11-10] MEDS: Insulin Glargine 30 UNITS/0.3 ML VIAL SC SCH (08:52)
[2023-11-10 09:08] LABS: #Basophils 0.04 10x3/uL (0.0-0.2); %Basophils 0.6 % (0.0-1.0); %Eosinophils 12.3 % (0.0-10.0); %Lymphocytes 11.2 % (21.0-51.0); %Monocytes 13.3 % (0.0-10.0); %Neutrophils 61.9 % (42.0-75.0); Hematocrit 30.4 % (36.0-47.0); Hemoglobin 9.4 g/dL (12.0-16.0); Mean Corpuscular HGB CONC 30.9 g/dL (32.0-36.0); Mean Corpuscular Hemoglobin 29.5 pg (27.0-31.0); Mean Corpuscular Volume 95.3 fL (78.0-98.0); Mean Platelet Volume 10.9 fL (7.4-10.4); Platelet Count 213 10x3/uL (130-400); RBC Distribution Width 15.9 % (11.5-14.5); Red Blood Cell (RBC) Count 3.19 mill/uL (4.20-5.40)
[2023-11-10 09:25] LABS: ALT (SGPT) 7 U/L (8-55); AST (SGOT) 14 U/L (5-34); Albumin 3.1 g/dL (3.4-4.8); Alkaline Phosphatase 66 U/L (40-110); Anion Gap 17 mmol/L (10-20); BUN (Urea Nitrogen) 40 mg/dL (9.8-20.1); Bilirubin, Total 0.7 mg/dL (0.2-1.2); Calc. Creatinine Clearance 37 mL/min (70-130); Calcium 9.4 mg/dL (7.8-10.44); Carbon Dioxide 24 mmol/L (23-31); Chloride 102 mmol/L (98-107); Estimated GFR 23; Globulin 3.5 g/dL (2.4-3.5); Glucose 87 mg/dL (83-110); Potassium 4.7 mmol/L (3.5-5.1); Protein, Total 6.6 g/dL (5.8-8.1); Sodium 138 mmol/L (136-145)
[2023-11-10] MEDS ORDERED: Heparin 10,000 UNITS/ 10 ML VIAL ONE (09:59)
[2023-11-11] MEDS ORDERED: Heparin 10,000 UNITS/ 10 ML VIAL ONE (10:07)
[2023-11-11] MEDS ORDERED: Epoetin (ESRD) 10,000 UNITS/ML VIAL IVP SCH (12:00)
[2023-11-11] MEDS: EPOETIN ALFA-EPBX (ESRD) 10,000 UNITS/ML VIAL IVP SCH (12:14)
[2023-11-11] MEDS: Calcitriol 0.25 MCG CAP PO SCH (14:00)
[2023-11-11 16:30] LABS: ALT (SGPT) 9 U/L (8-55); AST (SGOT) 18 U/L (5-34); Albumin 3.2 g/dL (3.4-4.8); Alkaline Phosphatase 74 U/L (40-110); Anion Gap 12 mmol/L (10-20); BUN (Urea Nitrogen) 14 mg/dL (9.8-20.1); Bilirubin, Total 0.8 mg/dL (0.2-1.2); Calc. Creatinine Clearance 67 mL/min (70-130); Calcium 9.2 mg/dL (7.8-10.44); Carbon Dioxide 28 mmol/L (23-31); Chloride 101 mmol/L (98-107); Estimated GFR 48; Globulin 3.6 g/dL (2.4-3.5); Glucose 130 mg/dL (83-110); Potassium 3.5 mmol/L (3.5-5.1); Protein, Total 6.8 g/dL (5.8-8.1); Sodium 137 mmol/L (136-145)
[2023-11-11 16:34] LABS: #Basophils 0.06 10x3/uL (0.0-0.2); %Basophils 0.9 % (0.0-1.0); %Eosinophils 11.9 % (0.0-10.0); %Lymphocytes 11.8 % (21.0-51.0); %Neutrophils 63.5 % (42.0-75.0); Hematocrit 32.2 % (36.0-47.0); Hemoglobin 10.1 g/dL (12.0-16.0); Mean Corpuscular HGB CONC 31.4 g/dL (32.0-36.0); Mean Corpuscular Hemoglobin 28.9 pg (27.0-31.0); Mean Platelet Volume 10.7 fL (7.4-10.4); Platelet Count 239 10x3/uL (130-400); RBC Distribution Width 16.1 % (11.5-14.5)
[2023-11-11] MEDS: Ondansetron ODT 4 MG TAB PO PRN (18:59)
[2023-11-11] MEDS: Melatonin 3 MG TAB PO PRN (22:25)
[2023-11-12 05:28] LABS: #Basophils 0.06 10x3/uL (0.0-0.2); %Eosinophils 15.9 % (0.0-10.0); %Lymphocytes 18.4 % (21.0-51.0); %Monocytes 14.1 % (0.0-10.0); %Neutrophils 49.8 % (42.0-75.0); Hematocrit 28.1 % (36.0-47.0); Hemoglobin 8.8 g/dL (12.0-16.0); Mean Corpuscular HGB CONC 31.3 g/dL (32.0-36.0); Mean Corpuscular Hemoglobin 29.5 pg (27.0-31.0); Mean Corpuscular Volume 94.3 fL (78.0-98.0); Mean Platelet Volume 10.5 fL (7.4-10.4); Platelet Count 212 10x3/uL (130-400); RBC Distribution Width 15.9 % (11.5-14.5); Red Blood Cell (RBC) Count 2.98 mill/uL (4.20-5.40)
[2023-11-12 05:53] LABS: ALT (SGPT) 9 U/L (8-55); AST (SGOT) 17 U/L (5-34); Albumin 2.9 g/dL (3.4-4.8); Alkaline Phosphatase 62 U/L (40-110); Anion Gap 13 mmol/L (10-20); BUN (Urea Nitrogen) 23 mg/dL (9.8-20.1); Bilirubin, Total 0.5 mg/dL (0.2-1.2); Calc. Creatinine Clearance 49 mL/min (70-130); Calcium 9.1 mg/dL (7.8-10.44); Carbon Dioxide 28 mmol/L (23-31); Chloride 101 mmol/L (98-107); Estimated GFR 33; Globulin 3.3 g/dL (2.4-3.5); Glucose 118 mg/dL (83-110); Potassium 4.1 mmol/L (3.5-5.1); Protein, Total 6.2 g/dL (5.8-8.1); Sodium 138 mmol/L (136-145)
[2023-11-12] MEDS ORDERED: Torsemide 20 MG TAB PO SCH (09:00)
[2023-11-12 13:23] VITALS: BMI 34.6
[2023-11-12 16:10] VITALS: BMI 34.6
[2023-11-13 07:38] LABS: Body Surface Area 2.1
[2023-11-13 07:54] LABS: Creatinine, Urine 94.83 mg/dL (47-110)
[2023-11-13 08:17] LABS: #Basophils 0.07 10x3/uL (0.0-0.2); %Basophils 1.1 % (0.0-1.0); %Eosinophils 18.9 % (0.0-10.0); %Lymphocytes 14.7 % (21.0-51.0); %Monocytes 13.2 % (0.0-10.0); %Neutrophils 51.2 % (42.0-75.0); Hematocrit 29.4 % (36.0-47.0); Hemoglobin 9.1 g/dL (12.0-16.0); Mean Corpuscular Hemoglobin 29.4 pg (27.0-31.0); Mean Corpuscular Volume 95.1 fL (78.0-98.0); Mean Platelet Volume 10.5 fL (7.4-10.4); Platelet Count 210 10x3/uL (130-400); RBC Distribution Width 16.2 % (11.5-14.5); Red Blood Cell (RBC) Count 3.09 mill/uL (4.20-5.40)
[2023-11-13 08:39] LABS: ALT (SGPT) 7 U/L (8-55); AST (SGOT) 14 U/L (5-34); Albumin 3.2 g/dL (3.4-4.8); Alkaline Phosphatase 67 U/L (40-110); Anion Gap 15 mmol/L (10-20); BUN (Urea Nitrogen) 33 mg/dL (9.8-20.1); Bilirubin, Total 0.5 mg/dL (0.2-1.2); Calc. Creatinine Clearance 36 mL/min (70-130); Calcium 9.8 mg/dL (7.8-10.44); Carbon Dioxide 28 mmol/L (23-31); Chloride 99 mmol/L (98-107); Estimated GFR 23; Globulin 3.4 g/dL (2.4-3.5); Glucose 78 mg/dL (83-110); Potassium 4.2 mmol/L (3.5-5.1); Protein, Total 6.6 g/dL (5.8-8.1); Sodium 138 mmol/L (136-145)
[2023-11-13] MEDS: ALPRAZolam 0.5 MG TAB PO SCH (12:57)
[2023-11-13] MEDS ORDERED: Heparin 10,000 UNITS/ 10 ML VIAL ONE (13:37)
[2023-11-13] MEDS: hydrOXYzine 10 MG TAB PO SCH (20:40)
[2023-11-14 07:12] LABS: #Basophils 0.06 10x3/uL (0.0-0.2); %Eosinophils 17.7 % (0.0-10.0); %Lymphocytes 15.3 % (21.0-51.0); %Monocytes 13.8 % (0.0-10.0); %Neutrophils 50.7 % (42.0-75.0); Hematocrit 29.9 % (36.0-47.0); Hemoglobin 9.5 g/dL (12.0-16.0); Mean Corpuscular HGB CONC 31.8 g/dL (32.0-36.0); Mean Corpuscular Hemoglobin 29.4 pg (27.0-31.0); Mean Corpuscular Volume 92.6 fL (78.0-98.0); Mean Platelet Volume 10.3 fL (7.4-10.4); Platelet Count 206 10x3/uL (130-400); RBC Distribution Width 16.3 % (11.5-14.5); Red Blood Cell (RBC) Count 3.23 mill/uL (4.20-5.40)
[2023-11-14 07:43] LABS: ALT (SGPT) 9 U/L (8-55); AST (SGOT) 15 U/L (5-34); Albumin 3.1 g/dL (3.4-4.8); Alkaline Phosphatase 65 U/L (40-110); Anion Gap 9 mmol/L (10-20); BUN (Urea Nitrogen) 19 mg/dL (9.8-20.1); Bilirubin, Total 0.5 mg/dL (0.2-1.2); Calc. Creatinine Clearance 45 mL/min (70-130); Calcium 9.7 mg/dL (7.8-10.44); Carbon Dioxide 31 mmol/L (23-31); Chloride 98 mmol/L (98-107); Estimated GFR 30; Globulin 3.3 g/dL (2.4-3.5); Glucose 158 mg/dL (83-110); Potassium 3.9 mmol/L (3.5-5.1); Protein, Total 6.4 g/dL (5.8-8.1); Sodium 134 mmol/L (136-145)
[2023-11-14] MEDS: Torsemide 20 MG TAB PO SCH (09:10)
[2023-11-15 04:23] LABS: #Basophils 0.08 10x3/uL (0.0-0.2); %Basophils 1.3 % (0.0-1.0); %Eosinophils 18.5 % (0.0-10.0); %Lymphocytes 18.2 % (21.0-51.0); %Monocytes 13.2 % (0.0-10.0); Hematocrit 27.8 % (36.0-47.0); Hemoglobin 8.8 g/dL (12.0-16.0); Mean Corpuscular HGB CONC 31.7 g/dL (32.0-36.0); Mean Corpuscular Hemoglobin 29.3 pg (27.0-31.0); Mean Corpuscular Volume 92.7 fL (78.0-98.0); Mean Platelet Volume 10.6 fL (7.4-10.4); Platelet Count 201 10x3/uL (130-400); RBC Distribution Width 16.5 % (11.5-14.5)
[2023-11-15 04:49] LABS: ALT (SGPT) 8 U/L (8-55); AST (SGOT) 12 U/L (5-34); Albumin 3.1 g/dL (3.4-4.8); Alkaline Phosphatase 63 U/L (40-110); Anion Gap 11 mmol/L (10-20); BUN (Urea Nitrogen) 31 mg/dL (9.8-20.1); Bilirubin, Total 0.5 mg/dL (0.2-1.2); Calc. Creatinine Clearance 36 mL/min (70-130); Calcium 9.5 mg/dL (7.8-10.44); Carbon Dioxide 29 mmol/L (23-31); Chloride 99 mmol/L (98-107); Estimated GFR 23; Globulin 3.1 g/dL (2.4-3.5); Glucose 133 mg/dL (83-110); Potassium 4.2 mmol/L (3.5-5.1); Protein, Total 6.2 g/dL (5.8-8.1); Sodium 135 mmol/L (136-145)
[2023-11-15] MEDS ORDERED: Heparin 10,000 UNITS/ 10 ML VIAL ONE (13:42)
[2023-11-16 04:46] LABS: #Basophils 0.09 10x3/uL (0.0-0.2); %Basophils 1.5 % (0.0-1.0); %Eosinophils 14.4 % (0.0-10.0); %Lymphocytes 19.3 % (21.0-51.0); %Monocytes 13.1 % (0.0-10.0); %Neutrophils 50.1 % (42.0-75.0); Hemoglobin 9.7 g/dL (12.0-16.0); Mean Corpuscular HGB CONC 31.3 g/dL (32.0-36.0); Mean Corpuscular Volume 92.5 fL (78.0-98.0); Platelet Count 199 10x3/uL (130-400); RBC Distribution Width 16.8 % (11.5-14.5); Red Blood Cell (RBC) Count 3.35 mill/uL (4.20-5.40)
[2023-11-16 05:49] LABS: ALT (SGPT) 9 U/L (8-55); AST (SGOT) 14 U/L (5-34); Albumin 3.2 g/dL (3.4-4.8); Alkaline Phosphatase 64 U/L (40-110); Anion Gap 11 mmol/L (10-20); BUN (Urea Nitrogen) 26 mg/dL (9.8-20.1); Bilirubin, Total 0.5 mg/dL (0.2-1.2); Calc. Creatinine Clearance 46 mL/min (70-130); Calcium 9.5 mg/dL (7.8-10.44); Carbon Dioxide 28 mmol/L (23-31); Chloride 100 mmol/L (98-107); Estimated GFR 33; Globulin 3.4 g/dL (2.4-3.5); Glucose 102 mg/dL (83-110); Potassium 4.3 mmol/L (3.5-5.1); Protein, Total 6.6 g/dL (5.8-8.1); Sodium 135 mmol/L (136-145)
[2023-11-16 08:38] VITALS: BP 120/68; TEMP 98.1
== END 2023-11-16 11:33 | disposition swing bed (61) | DRG 640 ==
LOC: 2NO 09:18 → CCU 09:26 → T4-B 11-10 00:40
PROVIDERS: ADMIT Family Medicine; ATTEND Family Medicine
PROC: 5A09357 Assistance with Respiratory Ventilation, Less than 24 Consecutive Hours, Continuous Positive Airway Pressure (ICD-10-PCS; principal; 2023-11-09)
PROC: 5A1D70Z Performance of Urinary Filtration, Intermittent, Less than 6 Hours Per Day (ICD-10-PCS; 2023-11-09)
PROC: 5A1D70Z Performance of Urinary Filtration, Intermittent, Less than 6 Hours Per Day (ICD-10-PCS; 2023-11-10)
PROC: 5A1D70Z Performance of Urinary Filtration, Intermittent, Less than 6 Hours Per Day (ICD-10-PCS; 2023-11-11)
DX: E87.70 Fluid overload, unspecified (principal); J96.01 Acute respiratory failure with hypoxia; N18.6 End stage renal disease; I13.2 Hypertensive heart and chronic kidney disease with heart failure and with stage 5 chronic kidney disease, or end stage renal disease; I50.32 Chronic diastolic (congestive) heart failure; E87.1 Hypo-osmolality and hyponatremia; E11.22 Type 2 diabetes mellitus with diabetic chronic kidney disease; E03.9 Hypothyroidism, unspecified; I25.10 Atherosclerotic heart disease of native coronary artery without angina pectoris; E78.5 Hyperlipidemia, unspecified; K21.9 Gastro-esophageal reflux disease without esophagitis; F41.9 Anxiety disorder, unspecified; F32.A Depression, unspecified; D63.1 Anemia in chronic kidney disease; Z66 Do not resuscitate; Z99.2 Dependence on renal dialysis; I25.2 Old myocardial infarction; Z86.73 Personal history of transient ischemic attack (TIA), and cerebral infarction without residual deficits; Z88.8 Allergy status to other drugs, medicaments and biological substances; Z79.899 Other long term (current) drug therapy; Z90.49 Acquired absence of other specified parts of digestive tract; Z90.710 Acquired absence of both cervix and uterus; Z98.890 Other specified postprocedural states; Z83.3 Family history of diabetes mellitus; Z79.4 Long term (current) use of insulin
CPT/HCPCS: 36415; 36416; 71045; 80053; 82575; 83735; 84100; 84145; 85025; 90935; 94640; G0257; J0456; J0696; J1644; J1815; J7050; J7620; Q0162; Q5105